=== PATIENT | male | born 1945 | race Caucasian/White ===

== ENCOUNTER 2018-12-23 17:13 | Emergency (ER) | payer MEDICARE, SELFPAY ==
[2018-12-23] VITALS (29 sets, daily range): BP systolic 134–180; BP diastolic 73–95; PULSE 74–100; RESP 13–22; TEMP 37.3; O2SAT 95–98
--- NOTE | 2018-12-23 17:31 | DI.CT_ITS ---
SYMPTOM/DIAGNOSIS: CONFUSION, ? CVA NONCONTRAST HEAD CT: There are no prior comparison exams. There is mucosal thickening of the nasal cavity, partially included on the exam. There is also mucosal thickening of the ethmoid sinuses. There is mucus retention within the right sphenoid sinus. The mastoid air cells appear clear. There is mild atrophy. No intracranial hemorrhage, mass or acute infarct is seen. 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 Sinus disease.
--- NOTE | 2018-12-23 17:31 | DI.RAD_ITS ---
SYMPTOM/DIAGNOSIS: CONFUSION, HYPERGLYCEMIA PA AND LATERAL CHEST: The heart size is normal. The aorta is mildly tortuous. The lungs are clear. Degenerative changes are seen in the spine. IMPRESSION: No acute abnormality.
--- NOTE | 2018-12-23 17:33 | ED.GENADUL_ITS ---
Discharge Plan Disposition Patient Disposition: HOME Condition: Improving Discharge Details Chief Complaint: Diabetes Clinical Impression: Hyperglycemia due to type 2 diabetes mellitus, Hx of medication noncompliance Reason For Visit: NELLIE Primary Care Provider: Mars Beavers ED Provider: Tiffany Lance Home Meds and New Rx's Prescriptions: Continued blood-glucose meter [OneTouch UltraMini] 1 EACH kit 1 ea Miscellaneous TID Qty: 1 RF: 0 lancets [OneTouch Delica Lancets] 1 EACH misc 1 ea Miscellaneous TID Qty: 300 RF: 3 OneTouch Ultra Test 1 EACH strip 1 ea Miscellaneous TID Qty: 300 RF: 4 pen needle, diabetic [Pen Needle] 1 EACH needle 1 ea Miscellaneous DAILY Qty: 100 RF: 3 pravastatin 80 mg tablet 80 mg PO DAILY Qty: 90 RF: 3 probenecid 500 mg tablet 500 mg PO BID Qty: 180 RF: 3 metformin 1,000 mg tablet 1,000 mg PO BID Qty: 180 RF: 3 hydrochlorothiazide 12.5 mg tablet 12.5 mg PO DAILY Qty: 90 RF: 3 lisinopril 40 mg tablet 40 mg PO DAILY Qty: 90 RF: 3 aspirin [Aspir-81] 81 MG tablet,delayed release (DR/EC) 81 mg PO DAILY RF: 0 Lantus Solostar U-100 Insulin 100 UNIT/1 ML insulin pen 18 unit SQ HS RF: 0 Discharge Instructions Instructions: Diabetic Hyperglycemia (ED) Additional Instructions: Drink plenty of fluids and eat a well-balanced diet, monitoring your carbohydrate and sugar intake. Check your sugars regularly. Take all of your regular medications as directed. Follow-up with your primary care doctor next week for re-evaluation. Return immediately to the emergency department any worsening or new concerning symptoms. Discharge Data Discharge Physician: Tiffany Lance Medical Decision Making 73-year-old male with history of diabetes, hypertension, gout who presents with hyperglycemia for the past few months, worse yesterday with numbers in the 500s, urinary incontinence and more fatigue today per daughter. Blood pressure hypertensive, remainder vitals within normal limits. Patient appears nontoxic, speaking in full sentences, comfortable. Glucose per EMS 328. Will place an IV, bolus IV fluids, labs, urinalysis, EKG, chest x-ray and CT head. 1844 --labs and imaging reviewed. CT head and chest x-ray negative for acute findings. Glucose 329. Normal bicarb and anion gap negative. Urinalysis negative for infection. Will give 7 units regular insulin and recheck blood sugar. Discussed with family at bedside. They feel comfortable taking patient home. Patient feels much better. Family discussed that they have seen some difficulty with memory over the past several months and are concerned about possible Alzheimer's dementia as there is a family history of it. They also discussed concern about patient's driving. I recommend that patient hold on any driving until he gets better control of his sugars over the next few weeks, and to follow-up with your primary care doctor and for referral for driving test to assess his ability. Daughter and family state that they will make sure that patient checks his sugars regularly and help him with his insulin and other medications. 1999 --repeat glucose 235. Patient feels much better and is requesting to go home. Patient states any of his medications, glucometer, lancets and strips at home. He is instructed to drink plenty of fluids, get plenty of rest, limit carbohydrates and sugar. He is instructed to follow-up with the primary care doctor for reevaluation and to return at any time if worse. Medical Records Medical records reviewed: Yes I reviewed the patient's medical records. Imaging Data Radiologic Study: Radiologist's impression: CT Head Without Contrast EXAM DATE/TIME: 12/23/2018 5:33 PM FINDINGS: Brain: No evidence for acute intracranial hemorrhage. Focal gliosis right occipital lobe, minimal. Cerebral volume loss noted. Scattered areas of decreased attenuation in the deep periventricular white matter consistent with small vessel ischemic change. Ventricles: Normal. No ventriculomegaly. Bones/joints: Unremarkable. No acute fracture. Sinuses: Moderate air fluid level right sphenoid sinus. Mastoid air cells: Visualized mastoid air cells are unremarkable. No mastoid effusion. Soft tissues: Unremarkable. IMPRESSION: 1. Senescent changes noted. No acute intracranial abnormality. 2. Right sphenoid sinusitis, acute in appearance. XR Chest, 2 Views EXAM DATE/TIME: 12/23/2018 5:33 PM FINDINGS: Lungs: Unremarkable. No consolidation. Pleural space: Unremarkable. No pleural effusion. No pneumothorax. Heart/Mediastinum: Unremarkable. No cardiomegaly. Bones/joints: Mild thoracic spondylosis. IMPRESSION: No evidence for acute abnormality in the chest. Lab Data Lab results reviewed: Yes I reviewed the patient's lab results. Laboratory Tests Range/Units 12/23/18 12/23/18 12/23/18 17:30 17:31 17:31 WBC (4.4-10.8) k/cumm 4.91 RBC (4.50-6.00) m/cumm 5.47 Hgb (13.5-17.5) g/dL 16.1 Hct (40.0-50.0) % 45.2 MCV (80-95) fL 82.6 MCH (27.0-33.0) pg 29.4 MCHC (32.0-36.0) g/dL 35.6 RDW (11.8-14.1) % 12.5 Plt Count (130-400) x1000/uL 198 MPV (8.0-11.0) fL 10.1 Immature Gran % 0.2 Neutrophils % 65.2 Lymphocytes % 23.8 Monocytes % 4.9 Eosinophils % 4.5 Basophils % 1.4 Absolute Neutrophils (1.2-6.7) k/cumm 3.20 Absolute Lymphocytes (1.2-3.4) k/cumm 1.17 L Absolute Monocytes (0.11-0.7) k/cumm 0.24 Absolute Eosinophils (0.0-0.7) k/cumm 0.22 Absolute Basophils (0.0-0.2) k/cumm 0.07 PT (9.3-11.0) sec 8.9 L INR (0.9-1.1) 0.9 APTT (21.0-31.4) sec 25.7 Sodium (136-145) mmol/L 139 Potassium (3.5-5.1) mmol/L 4.0 Chloride (98-107) mmol/L 98 Carbon Dioxide (21.0-32.0) mmol/L 30.4 Anion Gap (3-11) mmol/L 10.6 BUN (7-18) mg/dL 22 H Creatinine (0.70-1.30) mg/dL 1.64 H Estimated GFR/1.73 m2 (mL/min/1.73m2) 41.50 Glucose (70-100) mg/dL 329 H Calcium (8.5-10.1) mg/dL 9.6 Magnesium (1.8-2.4) mg/dL 1.8 Total Bilirubin (0.2-1.0) mg/dL 0.4 AST (15-37) U/L 15 ALT (12-78) U/L 18 Alkaline Phosphatase (46-116) U/L 127 H Troponin I (0.00-0.06) ng/mL < 0.02 Total Protein (6.4-8.2) g/dL 8.4 H Albumin (3.4-5.0) g/dL 4.2 Lipase (73-393) U/L 217 Urine Color (Yellow) Urine Clarity Urine pH (5-8) Ur Specific [place] (1.005-1.025) Urine Protein (Negative) mg/dL Urine Ketones (Negative) mg/dL Urine Blood (Negative) Urine Nitrite (Negative) Urine Bilirubin (Negative) Urine Urobilinogen (Up TO 0.2) EU/dL Ur Leukocyte Esterase (Negative) Urine RBC (0-2) Urine WBC (0-5) HPF Ur Epithelial Cells (Negative) HPF Urine Crystals (Negative) HPF Urine Bacteria (Negative) HPF Urine Casts (Negative) LPF Urine Mucus (Negative) Urine Other (Negative) Ur Culture Indicated? Urine Glucose (Negative) mg/dL Range/Units 12/23/18 18:16 WBC (4.4-10.8) k/cumm RBC (4.50-6.00) m/cumm Hgb (13.5-17.5) g/dL Hct (40.0-50.0) % MCV (80-95) fL MCH (27.0-33.0) pg MCHC (32.0-36.0) g/dL RDW (11.8-14.1) % Plt Count (130-400) x1000/uL MPV (8.0-11.0) fL Immature Gran % Neutrophils % Lymphocytes % Monocytes % Eosinophils % Basophils % Absolute Neutrophils (1.2-6.7) k/cumm Absolute Lymphocytes (1.2-3.4) k/cumm Absolute Monocytes (0.11-0.7) k/cumm Absolute Eosinophils (0.0-0.7) k/cumm Absolute Basophils (0.0-0.2) k/cumm PT (9.3-11.0) sec INR (0.9-1.1) APTT (21.0-31.4) sec Sodium (136-145) mmol/L Potassium (3.5-5.1) mmol/L Chloride (98-107) mmol/L Carbon Dioxide (21.0-32.0) mmol/L Anion Gap (3-11) mmol/L BUN (7-18) mg/dL Creatinine (0.70-1.30) mg/dL Estimated GFR/1.73 m2 (mL/min/1.73m2) Glucose (70-100) mg/dL Calcium (8.5-10.1) mg/dL Magnesium (1.8-2.4) mg/dL Total Bilirubin (0.2-1.0) mg/dL AST (15-37) U/L ALT (12-78) U/L Alkaline Phosphatase (46-116) U/L Troponin I (0.00-0.06) ng/mL Total Protein (6.4-8.2) g/dL Albumin (3.4-5.0) g/dL Lipase (73-393) U/L Urine Color (Yellow) Yellow Urine Clarity Clear Urine pH (5-8) 7.0 Ur Specific [place] (1.005-1.025) 1.020 Urine Protein (Negative) mg/dL 100 H Urine Ketones (Negative) mg/dL Negative Urine Blood (Negative) Moderate H Urine Nitrite (Negative) Negative Urine Bilirubin (Negative) Negative Urine Urobilinogen (Up TO 0.2) EU/dL 0.2 Ur Leukocyte Esterase (Negative) Negative Urine RBC (0-2) 5-10 H Urine WBC (0-5) HPF Negative Ur Epithelial Cells (Negative) HPF Rare Urine Crystals (Negative) HPF Negative Urine Bacteria (Negative) HPF Negative Urine Casts (Negative) LPF Negative Urine Mucus (Negative) Trace Urine Other (Negative) Ur Culture Indicated? No Urine Glucose (Negative) mg/dL 500 H ECG Data Attestation: I personally reviewed and interpreted this ECG (s) as follows: Interpretation: Rate of 90, sinus, no acute ST elevation or depression. QTc 440. QRS 96. HPI General Mode of arrival: EMS . Date/Time Provider Initiated Documentation: 12/23/18 17:21 . Limitations to Documentation: no limitations . Information obtained by: patient . HPI Narrative: Patient is a 73-year-old male with a history of diabetes and hypertension who presents with hyperglycemia and stating that his daughter thought he was not acting right today. Patient was unable to elaborate on this but states his daughter will be coming soon. Patient states he has had hyperglycemia for several months, and states that his sugar was 500 yesterday. States his sugar today was in the 300s. He states he has been taking most of his medications as directed but occasionally misses his doses including his metformin. He states he has not taken his insulin since August because he forgets. Patient states he lives with his daughter at home. He denies any fever, chest pain, shortness of breath, cough, nausea, vomiting, diarrhea. He states he has been eating and drink normally. He denies any urinary symptoms. Patient does admit to occasional headache and dizziness but not at present. Daughter and family who arrived later stated that patient seems to be more tired and grumpy lately. They also stated for the past few days he has had some urinary incontinence. She also stated that they are concerned about his driving due to progressive problems with memory over the past several months. They state he has a family history of Alzheimer's Dementia. Related Data Home Medications Medication Instructions Recorded Confirmed aspirin [Aspir-81] 81 mg PO DAILY 05/14/15 12/23/18 blood-glucose meter [OneTouch #1 kit 07/07/17 12/23/18 UltraMini] lancets [OneTouch Delica Lancets] #300 ea 07/10/17 12/23/18 OneTouch Ultra Test #300 strip 07/27/17 12/23/18 pen needle, diabetic [Pen Needle] #100 units 07/27/17 12/23/18 pravastatin 80 mg tablet 80 mg PO DAILY #90 tab 06/17/18 12/23/18 probenecid 500 mg tablet 500 mg PO BID #180 tab 11/23/18 12/23/18 metformin 1,000 mg tablet 1,000 mg PO BID #180 tab 12/13/18 12/23/18 hydrochlorothiazide 12.5 mg tablet 12.5 mg PO DAILY #90 tab 12/20/18 12/23/18 lisinopril 40 mg tablet 40 mg PO DAILY #90 tab 12/20/18 12/23/18 Lantus Solostar U-100 Insulin 18 unit SQ HS 12/23/18 12/23/18 Previous Rx's Medication Instructions Recorded blood-glucose meter [OneTouch #1 kit 07/07/17 UltraMini] lancets [OneTouch Delica Lancets] #300 ea 07/10/17 OneTouch Ultra Test #300 strip 07/27/17 pen needle, diabetic [Pen Needle] #100 units 07/27/17 pravastatin 80 mg tablet 80 mg PO DAILY #90 tab 06/17/18 probenecid 500 mg tablet 500 mg PO BID #180 tab 11/23/18 metformin 1,000 mg tablet 1,000 mg PO BID #180 tab 12/13/18 hydrochlorothiazide 12.5 mg tablet 12.5 mg PO DAILY #90 tab 12/20/18 lisinopril 40 mg tablet 40 mg PO DAILY #90 tab 12/20/18 Allergies Allergy/AdvReac Type Severity Reaction Status Date / Time codeine AdvReac Intermediate GI Verified 08/23/18 15:32 glimepiride AdvReac Unknown dizzy on Verified 08/23/18 15:32 1mg Review of Systems Review of Systems All systems reviewed & are unremarkable except as noted in HPI and below Constitutional Reports as per HPI, Denies chills and Denies fever(s) Eyes Denies blurry vision ENT Denies dizziness, Denies sore throat and Denies throat swelling Cardiovascular Denies chest pain and Denies dyspnea Respiratory Denies cough and Denies dyspnea Gastrointestinal Denies abdominal pain, Denies diarrhea and Denies vomiting Genitourinary Denies hematuria and Denies dysuria Musculoskeletal Denies back pain and Denies numbness Integumentary/Breasts Denies lesions and Denies rash Neurologic Denies dizziness, Denies focal weakness and Denies numbness Allergic/Immunologic Denies throat swelling [facility] Medical History Accelerated essential hypertension (Acute) Hyperlipemia (Acute) Diabetes (Chronic) Gout (Chronic) Surgical History Cataract right (08/13/17) Family History Mother Alzheimer disease Father No problems noted. Sister No problems noted. Sister No problems noted. Sister No problems noted. Brother Diabetes Stroke Brother No problems noted. Brother No problems noted. Social History Smoking/Tobacco Use Status: Current every day Tobacco Type: smokeless tobacco Alcohol Intake: former Drug use: Never Substance use type: does not use Do you feel safe at home: Yes Do you feel safe in your relationship?: Yes Exam Const General: cooperative and healthy appearing Orientation: alert and awake HENMT Head: normal to inspection Ears: hearing grossly normal bilaterally, external ears normal and TM's normal bilaterally General nose exam: external nose normal Face and sinus: normal facial exam Mouth: oral mucosae normal Teeth and gingiva: dentition normal Throat: posterior oropharynx normal Eyes General: appearance normal, both eyes and all related structures Eyelids: eyelids normal Pupils: PERRL EOM: EOM intact bilaterally Neck Neck: normal visual inspection Lymphatic: no lymphadenopathy noted Chest Chest: normal inspection of the chest Resp Effort & Inspection: normal respiratory effort and able to speak in complete sentences Auscultation: clear to auscultation bilaterally Cardio Rate: regular rate Rhythm: regular rhythm GI Inspection: normal to inspection Palpation: soft, not firm, no guarding, no hepatosplenomegaly, no masses and nontender Auscultation: normal bowel sounds Back/Spine/Pelvis Back: no CVA tenderness Skin General skin exam: no rashes or lesions noted Neuro General: alert and awake Cognition: normal cognition Speech: speech normal Gait: normal gait Motor: muscle tone normal throughout Sensory Exam: no sensory deficits noted Extrem General: normal to inspection, full ROM and normal capillary refill Psych Appearance: grossly normal Mental Status: mental status grossly normal Speech and Movement: speech and movement normal Affect: normal affect Thought Process: normal
[2018-12-23] MEDS: Normal Saline 1,000 ML 1000 ML IV (17:40)
[2018-12-23 17:41] LABS: Abs Immature Grans 0.01 k/cumm (0.0-0.09); Absolute Basophil Count 0.07 k/cumm (0.0-0.2); Absolute Eosinophil Count 0.22 k/cumm (0.0-0.7); Absolute Lymphocyte Count 1.17 k/cumm (1.2-3.4); Absolute Monocyte Count 0.24 k/cumm (0.11-0.7); Basophils % 1.4; Eosinophils % 4.5; HCT 45.2 % (40.0-50.0); HGB 16.1 g/dL (13.5-17.5); Immature Grans % 0.2; Lymphocytes % 23.8; Mean Corp. HGB Concentration 35.6 g/dL (32.0-36.0); Mean Corpuscular Hemoglobin 29.4 pg (27.0-33.0); Mean Corpuscular Volume 82.6 fL (80-95); Mean Platelet Volume 10.1 fL (8.0-11.0); Monocytes % 4.9; Neutrophils % 65.2; Platelet Count 198 x1000/uL (130-400); RBC 5.47 m/cumm (4.50-6.00); RBC Distribution Width 12.5 % (11.8-14.1); White Blood Cell Count 4.91 k/cumm (4.4-10.8)
[2018-12-23 18:04] LABS: ALT 18 U/L (12-78); AST 15 U/L (15-37); Albumin 4.2 g/dL (3.4-5.0); Alkaline Phosphatase 127 U/L (46-116); Anion Gap 10.6 mmol/L (3-11); BUN 22 mg/dL (7-18); Bilirubin, Total 0.4 mg/dL (0.2-1.0); CO2 30.4 mmol/L (21.0-32.0); CREATININE 1.64 mg/dL (0.70-1.30); Calcium 9.6 mg/dL (8.5-10.1); Chloride 98 mmol/L (98-107); Glucose 329 mg/dL (70-100); Lipase 217 U/L (73-393); Magnesium 1.8 mg/dL (1.8-2.4); Sodium 139 mmol/L (136-145); Total Protein 8.4 g/dL (6.4-8.2)
[2018-12-23 18:05] LABS: Troponin I < 0.02 ng/mL (0.00-0.06)
[2018-12-23 18:15] LABS: INR 0.9 (0.9-1.1); PTT Activated 25.7 sec (21.0-31.4); Prothrombin Time 8.9 sec (9.3-11.0)
[2018-12-23 18:24] LABS: Bilirubin Negative (Negative); Blood Moderate (Negative); Clarity Clear; Glucose 500 mg/dL (Negative); Ketones Negative (Negative); Leukocyte Esterase Negative (Negative); Nitrite Negative (Negative); Urobilinogen 0.2 EU/dL (Up TO 0.2)
--- NOTE | 2018-12-23 18:27 | DI.VRAD_ITS ---
EXAM: XR Chest, 2 Views EXAM DATE/TIME: 12/23/2018 5:33 PM CLINICAL HISTORY: 73 years old, male; Signs and symptoms; Shortness of breath TECHNIQUE: XR of the chest, 2 views. COMPARISON: No relevant prior studies available. FINDINGS: Lungs: Unremarkable. No consolidation. Pleural space: Unremarkable. No pleural effusion. No pneumothorax. Heart/Mediastinum: Unremarkable. No cardiomegaly. Bones/joints: Mild thoracic spondylosis. IMPRESSION: No evidence for acute abnormality in the chest. COMMENT: Preliminary interpretation is based on receipt of 2 image(s). A final report will be issued subsequently. Dictated and Authenticated by: Nelsy Kern MD. Ordering:ZORAIDA Allen MD
--- NOTE | 2018-12-23 18:27 | DI.VRAD_ITS ---
EXAM: CT Head Without Contrast EXAM DATE/TIME: 12/23/2018 5:33 PM CLINICAL HISTORY: 73 years old, male; Signs and symptoms; Other: Confusion TECHNIQUE: Axial computed tomography images of the head/brain without contrast. Coronal and sagittal reformatted images were created and reviewed. COMPARISON: No relevant prior studies available. FINDINGS: Brain: No evidence for acute intracranial hemorrhage. Focal gliosis right occipital lobe, minimal. Cerebral volume loss noted. Scattered areas of decreased attenuation in the deep periventricular white matter consistent with small vessel ischemic change. Ventricles: Normal. No ventriculomegaly. Bones/joints: Unremarkable. No acute fracture. Sinuses: Moderate air fluid level right sphenoid sinus. Mastoid air cells: Visualized mastoid air cells are unremarkable. No mastoid effusion. Soft tissues: Unremarkable. IMPRESSION: 1. Senescent changes noted. No acute intracranial abnormality. 2. Right sphenoid sinusitis, acute in appearance. COMMENT: Preliminary interpretation is based on receipt of 356 image(s). A final report will be issued subsequently. Dictated and Authenticated by: Nelsy Kern MD. Ordering:ZORAIDA Allen MD
[2018-12-23 18:37] LABS: Bacteria Negative HPF (Negative); C & S Indicated? No; Casts Negative LPF (Negative); Crystals Negative HPF (Negative); Epithelial Cells Rare HPF (Negative); Mucus Trace (Negative); WBC Negative HPF (0-5)
[2018-12-23] MEDS: Insulin REGULAR-Human 100 UNITS/ML UNIT 7 UNITS IV (18:56)
[2018-12-24 11:39] LABS: Hemoglobin A1C 10.4 % (4.5-6.2)
== END 2018-12-23 20:22 | disposition home or self-care (01) ==
PROVIDERS: Emergency Provider Physician Assistant; PCP Family Medicine
DX: E11.65 Type 2 diabetes mellitus with hyperglycemia (principal); I10 Essential (primary) hypertension; Z91.14 Patient's other noncompliance with medication regimen
CPT/HCPCS: 36415; 36416; 80053; 82962; 83690; 93005; 96361; 96374; 99285; 70450; 71046; 81003; 81015; 83036; 83735; 84484; 85025; 85610; 85730; 93010

== ENCOUNTER 2019-04-01 13:31 | Outpatient (REF) | payer MEDICARE, BC, SELFPAY ==
[2019-04-01 14:42] LABS: COMMENT (LAB VIEW ONLY) 61.44 mg/dL; Microalb ug/mg Crea 823.7 ug/mg Cr
== END 2019-04-01 13:51 ==
LOC: LBN 13:31
PROVIDERS: PCP Nurse Practitioner Adult Health; Visit Provider Nurse Practitioner Family
DX: E11.9 Type 2 diabetes mellitus without complications (principal)
CPT/HCPCS: 82043; 82570

== ENCOUNTER 2019-06-15 08:59 | Emergency (ER) | payer MEDICARE, SELFPAY ==
[2019-06-15] VITALS (14 sets, daily range): BP systolic 133–174; BP diastolic 77–94; PULSE 69–83; RESP 16; TEMP 37.1; O2SAT 95–98
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
--- NOTE | 2019-06-15 09:20 | ED.GENADUL_ITS ---
Discharge Plan Disposition Patient Disposition: HOME Condition: Fair Discharge Details Chief Complaint: EyeProblem Clinical Impression: Diplopia, Headache Primary Care Provider: Rasheeda Melchor ED Provider: Jayne Hobson Home Meds and New Rx's Prescriptions: Continued probenecid 500 mg tablet 500 mg PO BID Qty: 180 RF: 3 Lantus Solostar U-100 Insulin 100 unit/mL (3 mL) insulin pen 21 unit subcut HS Qty: 15 RF: 4 (DME) lancets [OneTouch Delica Lancets] 33 gauge misc 1 ea Miscellaneous TID Qty: 100 RF: 3 (DME) OneTouch Ultra Test strip 1 ea Miscellaneous TID Qty: 100 RF: 3 pravastatin 80 mg tablet 80 mg PO DAILY Qty: 90 RF: 3 metformin 1,000 mg tablet 1,000 mg PO BID Qty: 180 RF: 3 hydrochlorothiazide 12.5 mg tablet 12.5 mg PO DAILY Qty: 90 RF: 3 lisinopril 40 mg tablet 40 mg PO DAILY Qty: 90 RF: 3 (DME) lancets [OneTouch Delica Lancets] 33 gauge misc 1 ea Miscellaneous TID Qty: 100 RF: 3 (DME) pen needle, diabetic [Pen Needle] 31 gauge x 5/16 needle 1 ea Miscellaneous DAILY Qty: 100 RF: 3 (DME) FreeStyle [place] 14 Day [place] Misc See Dose Instructions .ROUTE .MEDSUPPLY Qty: 1 RF: 12 (DME) FreeStyle [place] 14 Day Sensor Kit See Dose Instructions .ROUTE .MEDSUPPLY Qty: 1 RF: 6 aspirin [Aspir-81] 81 MG tablet,delayed release (DR/EC) 81 mg PO DAILY RF: 0 Discharge Instructions Instructions: Diplopia (ED), General Headache (ED) Additional Instructions: Push fluids by mouth. Eat a balanced diet. Go directly to [facility] from the ER for further evaluation of your eyes as discussed Call your PCP for prompt recheck. Return for any worsening, alarming or concerning symptoms sooner if needed. Referrals: Rasheeda Melchor, [employer] [Primary Care Provider] - Medical Decision Making 73-year-old gentleman presents for complaints of headache which began 3 weeks ago at the onset of severe stress, financial stress which was new. Patient reports intermittent headaches, not worst headache of his life. Patient reports headaches to resolve entirely but he does note them when he becomes increasingly stressed. Posterior headache radiating to the forehead area. No associated systemic symptoms. Patient does present this morning as he noted abrupt onset of double vision which is binocular onset 6:50 AM. Patient reports when closing a single eye the blurred vision is resolved. Denies any other eye complaints. Neurologic exam at the bedside is unremarkable. This was discussed with my attending Dr. Jack. My attending also evaluated the patient at the bedside agrees with work-up and plan of care. Work-up including CT head and angiography of head and neck; all unremarkable. Patient does have a mildly elevated sed rate but no temporal artery tenderness. This is unlikely to be temporal arteritis, sed rate below 50. Patient does admit to not caring well for himself given the last 3 weeks of stress. Encouraged eating well, maintaining a balanced diet and staying well-hydrated. Initial plan of care is immediate reevaluation at [facility]. Follow-up promptly with PCP. Return for any alarming or worsening symptoms as discussed. HPI General Date/Time Provider Initiated Documentation: 06/15/19 09:02 . HPI Narrative: Patient presents for 3 weeks complaints of headache. Headache is described as posterior approximately 5 out of 10. Headache is intermittent. Headache will entirely resolve. Patient attributes headache to increase in stress financially recently. Patient reports onset of stress approximately 3 weeks ago concurrent with onset of headache. Patient denies associated nausea, vomiting, dizziness, numbness, tingling or weakness of extremities. Patient eating and drinking without difficulty although does have a mildly decrease in appetite due to recent stress. Patient is diabetic, compliant with medications. Patient presents this morning due to new onset of double vision which was noted 6:50 AM abruptly. Patient reports double vision is binocular. Does resolve entirely when closing one eye. Denies any associated eye pain, drainage or blurred vision. Denies any tinnitus. Denies any other concerns or complaints at this time. Patient does currently have a 5 out of 10 headache. Was sent over by his PCP. Patient urinating normally moving bowels normally. Related Data Home Medications Medication Instructions Recorded Confirmed aspirin [Aspir-81] 81 mg PO DAILY 05/14/15 06/15/19 pravastatin 80 mg tablet 80 mg PO DAILY #90 tab 06/17/18 06/15/19 metformin 1,000 mg tablet 1,000 mg PO BID #180 tab 12/13/18 06/15/19 hydrochlorothiazide 12.5 mg tablet 12.5 mg PO DAILY #90 tab 12/20/18 06/15/19 lisinopril 40 mg tablet 40 mg PO DAILY #90 tab 12/20/18 06/15/19 blood sugar diagnostic #100 strip 12/27/18 04/01/19 insulin glargine 100 unit/mL (3 21 unit SUBCUT HS #15 ml 12/27/18 06/15/19 mL) subcutaneous pen lancets 33 gauge #100 each 12/27/18 04/01/19 probenecid 500 mg tablet 500 mg PO BID #180 tab 12/27/18 06/15/19 lancets 33 gauge #100 each 01/03/19 04/01/19 pen needle, diabetic 31 gauge x #100 units 02/22/19 04/01/1902/24 flash glucose scanning reader #1 each 05/09/19 flash glucose sensor #1 each 05/09/19 Previous Rx's Medication Instructions Recorded pravastatin 80 mg tablet 80 mg PO DAILY #90 tab 06/17/18 metformin 1,000 mg tablet 1,000 mg PO BID #180 tab 12/13/18 hydrochlorothiazide 12.5 mg tablet 12.5 mg PO DAILY #90 tab 12/20/18 lisinopril 40 mg tablet 40 mg PO DAILY #90 tab 12/20/18 blood sugar diagnostic #100 strip 12/27/18 insulin glargine 100 unit/mL (3 21 unit SUBCUT HS #15 ml 12/27/18 mL) subcutaneous pen lancets 33 gauge #100 each 12/27/18 probenecid 500 mg tablet 500 mg PO BID #180 tab 12/27/18 lancets 33 gauge #100 each 01/03/19 pen needle, diabetic 31 gauge x #100 units 02/22/1902/24 flash glucose scanning reader #1 each 05/09/19 flash glucose sensor #1 each 05/09/19 Allergies Allergy/AdvReac Type Severity Reaction Status Date / Time codeine AdvReac Intermediate GI Verified 04/01/19 08:58 glimepiride AdvReac Intermediate dizzy on Verified 04/01/19 08:58 1mg General Stated Complaint: EyeProblem BRII: 2 Review of Systems Review of Systems CONSTITUTIONAL: The patient denies fevers, chills. EYES: Reports double vision. Denies blurry vision, or eye pain. ENT: Denies hearing changes, tinnitus, vertigo, gingival bleeding, sore throat, neck swelling. CARDIAC: Denies chest pain, pressure, palpitations, irregular heartbeats. Denies lower extremity edema. RESPIRATORY: Denies cough, sputum, hemoptysis_ GASTROINTESTINAL: Denies abdominal pain, changes in bowel, vomitting, or rectal bleeding. GENITOURINARY: Denies dysuria, hematuria, nocturia or frequency of urination. MUSCULOSKELETAL: Denies Joint pain, gait changes, deformities. NEUROLOGIC: Headaches present. Denies dizziness, syncope. Denies focal weakness. Denies numbness. INTEGUMENT: Denies rashes. PSYCHIATRIC: Denies behavior changes. Denies anxiety or depression. ENDOCRINOLOGY: Denies heat or cold intolerance. Denies fatigue. HEMATOLOGY: Denies easy bleeding or bruising. PSYCHIATRY: Denies depression, agitation or anxiety. ALLERGIC/IMMUNOLOGIC: Denies urticaria, lip or tongue swelling. [facility] Medical History Accelerated essential hypertension (Chronic) Diabetes (Chronic) Gout (Chronic) Hyperlipemia (Chronic) Surgical History Cataract right (08/13/17) Family History Mother , ALzheimers at age 72. Alzheimer disease Father , heart issue at age 83. No problems noted. Sister No problems noted. Sister No problems noted. Sister No problems noted. Brother Diabetes Stroke Brother No problems noted. Brother No problems noted. Social History Smoking/Tobacco Use Status: Current every day Tobacco Type: smokeless tobacco Alcohol Intake: current Alcohol Intake frequency: a few times a month Drug use: Never Substance use type: does not use Household members: none and other Details: Daughter, her and self, wid owed after 46 yrs of marriage, 08/29 Housing: house Communication Needs: Corrective Lenses Do you need help understanding health information?: Never Pets and animals: Yes Pets and animals: cat(s) What is your relationship status?: Panel score (0-1 are the most socially isolated patients): 0 What type of physical activity do you participate in: other Details: lawn mowing, weed waching, fishing Frequency: 3-4 times per week Do you feel safe at home: Yes Do you feel safe in your relationship?: Yes Exam Narrative Exam Narrative: CONST: Healthy appearing patient, in no acute distress. Well hydrated. Alert and alert. HENMT: Head nomocephalic, normal to inspection. Atraumatic. Hearing grossly normal. External ear canal no erythema or swelling. TM normal bilaterally. Nose normal to inspection. No rhinnorhea. Normal facial exam. Oral mucosa normal. Tounge normal. Dentition normal. Normal posterior oropharynx. Uvula midline. EYES: General normal appearance. Alignment normal. Eyelids normal. Conjunctiva normal. Sclera normal. PERRL. No nystagmus. NECK: Normal visual inspection. FROM. No lymphadenopathy. Trachea midline. No Midline tenderness. CHEST: Normal insepection of the chest. RESP: Normal respiratory effort. Speaking full sentences. No cough. No wheezing. No retractions. Clear to auscaltation. Breath sound equal and present bilaterally. CARDIO: No JVD. Normal PMI. Regular Rate. Regular Rhythm. Normal peripheral pulses. GI: Normal inspection of abdomen. No distension. Soft. Nontender. Bowel sounds present in all 4 quadrants. No rebound. No gaurding. MUSCULOSKELETAL: Normal Gait. FROM of all extremities. Distal neurovascularly intact. Sensation intact distally. SKIN: Normal. Dry. No rashes. NEURO: Alert and awake. Speech clear. Alert and oriented x 3. Speech is clear. Cranial nerves intact as tested III - XI. abnormal Cvblaf-ss-tzkp test. No pronator drift. Normal heel-yeboah test. No Nystagmus. Gait normal. Strength intact in all extremities. Sensation intact in all extremities. PSYCH: Normal affect. Cooperative. Eyes Visual Walters: normal visual walters by confrontation Alignment and Position: alignment normal Conjunctivae: conjunctivae normal Pupils: PERRL EOM: EOM intact bilaterally and No nystagmus Other: R; 20/20 L; 20/25 B: 20/32 Neuro Cranial Nerves: no nystagmus Course Vital Signs Temperature 37.1 C 06/15/19 09:03 Pulse 83 06/15/19 09:03 Respiratory Rate 16 06/15/19 09:03 Blood Pressure 174/94 H 06/15/19 09:03 Pulse Oximetry 97 06/15/19 09:03 Temperature 37.1 C 06/15/19 09:03 Temperature Source Skin 06/15/19 09:03 Pulse 83 06/15/19 09:03 Respiratory Rate 16 06/15/19 09:03 Blood Pressure 174/94 H 06/15/19 09:03 Pulse Oximetry 97 06/15/19 09:03 Oxygen Delivery Method Room Air 06/15/19 09:03 Oxygen Flow Rate 0 06/15/19 09:03
[2019-06-15 09:35] LABS: Abs Immature Grans 0.02 k/cumm (0.0-0.09); Absolute Basophil Count 0.04 k/cumm (0.0-0.2); Absolute Eosinophil Count 0.13 k/cumm (0.0-0.7); Absolute Lymphocyte Count 0.75 k/cumm (1.2-3.4); Absolute Monocyte Count 0.36 k/cumm (0.11-0.7); Absolute Neutrophil Count 5.69 k/cumm (1.2-6.7); Basophils % 0.6; Eosinophils % 1.9; HCT 44.6 % (40.0-50.0); HGB 15.3 g/dL (13.5-17.5); Immature Grans % 0.3; Lymphocytes % 10.7; Mean Corp. HGB Concentration 34.3 g/dL (32.0-36.0); Mean Corpuscular Volume 84.5 fL (80-95); Mean Platelet Volume 10.1 fL (8.0-11.0); Monocytes % 5.2; Neutrophils % 81.3; Platelet Count 268 x1000/uL (130-400); RBC 5.28 m/cumm (4.50-6.00); RBC Distribution Width 12.8 % (11.8-14.1); White Blood Cell Count 6.99 k/cumm (4.4-10.8)
[2019-06-15 09:50] LABS: ALT 27 U/L (16-63); AST 14 U/L (15-37); Albumin 3.6 g/dL (3.4-5.0); Alkaline Phosphatase 138 U/L (46-116); Anion Gap 10.1 mmol/L (3-11); BUN 13 mg/dL (7-18); Bilirubin, Total 0.5 mg/dL (0.2-1.0); CO2 29.9 mmol/L (21.0-32.0); CREATININE 1.54 mg/dL (0.70-1.30); Calcium 9.3 mg/dL (8.5-10.1); Chloride 101 mmol/L (98-107); Estimated GFR 44.63 (mL/min/1.73m2); Glucose 202 mg/dL (70-100); Sodium 141 mmol/L (136-145); Total Protein 8.2 g/dL (6.4-8.2)
[2019-06-15 10:10] LABS: PTT Activated 24.1 sec (21.0-31.4); Prothrombin Time 9.8 sec (9.3-11.0)
[2019-06-15 10:11] LABS: ESR 32 mm/hr (1-20)
[2019-06-15] MEDS: Omnipaque 350 MG/ML 100 ML BTL IJ (10:22)
--- NOTE | 2019-06-15 10:25 | DI.CT_ITS ---
SYMPTOMS/DIAGNOSIS: DOUBLE VISION, HEADACHE NONCONTRAST HEAD CT: Comparison is made with [id number]. No intracranial hemorrhage, mass or infarct is seen. The ventricles are normal in size. There is minimal atrophy. There is opacification of the right sphenoid sinus. The mastoid air cells appear clear. IMPRESSION: No acute abnormality. CT ANGIOGRAPHY OF THE NECK: CT angiography was performed with multi slice acquisition and multi planar and 3D reconstruction. The common, internal and external carotid arteries show normal diameter throughout. There is no significant plaque or stenosis. There is no evidence of dissection. The right vertebral artery is dominant. The visualized portions of the upper lobes appear clear. There are degenerative changes greatest in the lower cervical spine. IMPRESSION: Negative CTA of the neck. CT ANGIOGRAPHY OF THE BRAIN: The [place] vasculature and branches are normal in diameter. There is no evidence of stenosis, dissection or occlusion. The superior sagittal sinus as well as sigmoid sinus also show opacification and show no evidence of filling defect. A mucous retention cyst is seen in the left maxillary sinus. No abnormal enhancing lesions are seen in the brain. The orbits are unremarkable. There is opacification of the right sphenoid sinus. IMPRESSION: Negative CTA of the brain.
[2019-06-15] MEDS: Acetaminophen 500 MG TAB 1000 MG PO (10:37)
[2019-06-15] MEDS: Normal Saline 1,000 ML 1000 ML IV (10:37)
--- NOTE | 2019-06-15 11:32 | NUR.NOTE ---
Nursing Note:IV removed
--- NOTE | 2019-06-15 13:52 | W.ED.FU ---
I evaluated the pt during his stay. See the primary provider's notes for full details but in brief has had mild intermittent headaches for a few weeks and today had binocular bipolopia. Had no cranial nerve deficits on exam and stable gait. He had no infectious symptoms, no meningismus. His head ct and CTA showed no acute findings per Dr. hawkins. We sent him to see his software quality specialist since aneurysm and dissection were ruled out and symptoms were not typical of cavernous sinus thrombosis.
== END 2019-06-15 11:32 | disposition home or self-care (01) ==
PROVIDERS: Emergency Provider Physician Assistant; PCP Nurse Practitioner Adult Health
DX: H53.2 Diplopia (principal); R51 Headache
CPT/HCPCS: 36415; 70496; 70498; 80053; 85652; 96360; 99285; 85025; 85610; 85730; 99284; J3490

== ENCOUNTER 2019-06-20 15:53 | Outpatient (REF) | payer MEDICARE, SELFPAY ==
[2019-06-20 19:08] LABS: ESR 24 mm/hr (1-20)
[2019-06-22 11:06] LABS: Lyme Ab w Rflx to Lyme Confirm Positive
[2019-06-24 02:02] LABS: Anaplasma phagocytophilum Negative (Negative); B. miyamotoi PCR Negative (Negative); Babesia divergens/MO-1 Negative (Negative); Babesia duncani Negative (Negative); Babesia microti Negative (Negative); Ehrlichia chaffeensis Negative (Negative); Ehrlichia ewingii/canis Negative (Negative); Ehrlichia muris eauclairensis Negative (Negative)
[2019-06-24 15:33] LABS: IgG Immunoblot Negative; IgM Immunoblot Positive; Immunoblot Interpretation SEE COMMENTS
== END 2019-06-20 16:13 ==
LOC: LBN 15:53
PROVIDERS: PCP Nurse Practitioner Adult Health; Visit Provider Family Medicine
DX: G52.9 Cranial nerve disorder, unspecified (principal)
CPT/HCPCS: 85652; 86617; 87798; 86618

== ENCOUNTER 2019-06-21 09:02 | Outpatient (CLI) | payer MEDICARE, SELFPAY ==
[2019-06-21] MEDS: Gadoterate meglumine 20 ML VIAL 16 ML IVP (12:59)
[2019-06-21] MEDS: Normal Saline Flush 10 ML SYR IVP (13:00)
--- NOTE | 2019-06-21 13:11 | DI.MRI_ITS ---
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 There is moderate generalized cerebral atrophy. There are mild signal changes in periventricular white matter consistent with microvascular ischemic changes. Possible tiny old right occipital infarct noted. Diffusion weighted imaging shows no evidence of acute infarction or subacute infarction. Susceptibility weighted imaging shows no evidence of intracranial hemorrhage. There is an incidental apparent tiny lipoma associated with the quadrigeminal cistern just adjacent to the sylvian aqueduct without evidence of aqueductal stenosis. No mass lesion or enhancing lesion identified in the brain or specifically in the posterior fossa. The orbital and temporal bone structures appear intact. There is normal flow void in the [place] vasculature. CONCLUSION: No evidence of acute process. No evidence of posterior fossa mass lesion or enhancing lesion.
== END 2019-06-21 09:22 ==
PROVIDERS: PCP Nurse Practitioner Adult Health; Visit Provider Family Medicine
DX: G52.8 Disorders of other specified cranial nerves (principal); G31.89 Other specified degenerative diseases of nervous system; R90.82 White matter disease, unspecified
CPT/HCPCS: 70553

== ENCOUNTER 2019-12-19 08:44 | Outpatient (CLI) | payer MEDICARE, SELFPAY ==
[2019-12-19 09:34] LABS: Hemoglobin A1C 8.2 % (3.8-5.6)
[2019-12-19 09:57] LABS: COMMENT (LAB VIEW ONLY) 59.34 mg/dL
[2019-12-19 10:39] LABS: ALT 18 U/L (16-63); AST 16 U/L (15-37); Albumin 3.7 g/dL (3.4-5.0); Alkaline Phosphatase 89 U/L (46-116); Anion Gap 9.4 mmol/L (3-11); BUN 23 mg/dL (7-18); Bilirubin, Total 0.5 mg/dL (0.2-1.0); CO2 29.6 mmol/L (21.0-32.0); CREATININE 1.36 mg/dL (0.70-1.30); Calcium 8.9 mg/dL (8.5-10.1); Calculated LDL 103 mg/dL (<100); Chloride 103 mmol/L (98-107); Cholesterol 173 mg/dL (<200); Estimated GFR 51.37 (mL/min/1.73m2); Glucose 192 mg/dL (74-106); HDL Cholesterol 41 mg/dL (40-60); Sodium 142 mmol/L (136-145); Total Protein 6.7 g/dL (6.4-8.2); Triglyceride 145 mg/dL (<150)
[2019-12-19 10:48] LABS: Uric Acid 4.2 mg/dL (3.5-7.2)
== END 2019-12-19 09:04 ==
PROVIDERS: PCP Nurse Practitioner Adult Health; Visit Provider Nurse Practitioner Adult Health
DX: E11.65 Type 2 diabetes mellitus with hyperglycemia (principal); E78.5 Hyperlipidemia, unspecified; I10 Essential (primary) hypertension; M10.9 Gout, unspecified
CPT/HCPCS: 36415; 80053; 80061; 82043; 82570; 83036; 84550

== ENCOUNTER 2020-03-21 01:23 | Outpatient (CLI) | payer MEDICARE, SELFPAY ==
[2020-03-21 09:14] LABS: Hemoglobin A1C 7.5 % (3.8-5.6)
[2020-03-21 09:36] LABS: ALT 27 U/L (16-63); AST 19 U/L (15-37); Albumin 4.2 g/dL (3.4-5.0); Alkaline Phosphatase 100 U/L (46-116); Anion Gap 10.2 mmol/L (3-11); BUN 28 mg/dL (7-18); Bilirubin, Total 0.3 mg/dL (0.2-1.0); CO2 27.8 mmol/L (21.0-32.0); CREATININE 1.66 mg/dL (0.70-1.30); Calcium 9.1 mg/dL (8.5-10.1); Calculated LDL 110 mg/dL (<100); Chloride 107 mmol/L (98-107); Cholesterol 184 mg/dL (<200); Estimated GFR 40.81 (mL/min/1.73m2); Glucose 192 mg/dL (74-106); HDL Cholesterol 47 mg/dL (40-60); Potassium 4.4 mmol/L (3.5-5.1); Sodium 145 mmol/L (136-145); Total Protein 7.5 g/dL (6.4-8.2); Triglyceride 139 mg/dL (<150)
[2020-03-21 09:45] LABS: Microalb ug/mg Crea 1904.3 ug/mg Cr
== END 2020-03-21 01:43 ==
PROVIDERS: PCP Nurse Practitioner Adult Health; Visit Provider Nurse Practitioner Adult Health
DX: E11.65 Type 2 diabetes mellitus with hyperglycemia (principal); I10 Essential (primary) hypertension; E78.5 Hyperlipidemia, unspecified; N18.3 Chronic kidney disease, stage 3 (moderate)
CPT/HCPCS: 36415; 80053; 80061; 82043; 82570; 83036

== ENCOUNTER → 2020-08-16 10:21 | Outpatient (BNVA) | payer MEDICARE, SELFPAY | PROVIDERS: PCP Nurse Practitioner Adult Health; Referring Provider Nurse Practitioner Adult Health; Visit Provider Physical Therapy Assistant | DX: Z12.11 Encounter for screening for malignant neoplasm of colon (principal); Z86.010 Personal history of colon polyps; I12.9 Hypertensive chronic kidney disease with stage 1 through stage 4 chronic kidney disease, or unspecified chronic kidney disease; N18.30 Chronic kidney disease, stage 3 unspecified ==

== ENCOUNTER 2020-08-24 03:28 | Outpatient (CLI) | payer MEDICARE, SELFPAY ==
--- NOTE | 2020-08-24 07:15 | DI.RAD_ITS ---
EXAM: XR LUMBAR SPINE COMPLETE CLINICAL HISTORY: r/o bony abn--compress fx, DJD,BACK PAIN,RADICULOPATHY,M54.16,R26.89. TECHNIQUE: 2D digital imaging was performed. COMPARISON: CR XR CHEST 2V PA LATERAL from 12/23/2018 FINDINGS: BONES: No fracture or destructive lesion. Vertebral bodies are unremarkable. Mild degenerative change s of the facets are seen at L4-5 and L5-S1. Endplate osteophytes are seen at multiple levels of the l umbar spine. DISKS: Intervertebral disc spaces are maintained. ALIGNMENT: Lumbar spinal alignment is within normal limits. SOFT TISSUE: Normal. IMPRESSION: No acute fracture or subluxation in the lumbar spine. DATA REPOSITORY: RADIATION DOSE DELIVERED:
--- NOTE | 2020-08-24 07:15 | DI.RAD_ITS ---
EXAM: XR HIP RT COMPLETE AP PELVIS CLINICAL HISTORY: r/o bony abn-compr fx; DJD, RT HIP PAIN, IMPAIRED GAIT,M25.551,R26.89. TECHNIQUE: 2D digital imaging was performed. COMPARISON: No exams were available for comparison FINDINGS: BONES: No acute fracture is present. No bony destructive lesion is seen. JOINTS: No dislocation present. Mild degenerative changes are seen in the hips bilaterally. SOFT TISSUE: Normal. IMPRESSION: No acute fracture or dislocation. DATA REPOSITORY: RADIATION DOSE DELIVERED:
== END 2020-08-24 03:48 ==
PROVIDERS: PCP Nurse Practitioner Adult Health; Visit Provider Nurse Practitioner Adult Health
DX: M54.16 Radiculopathy, lumbar region (principal); M16.0 Bilateral primary osteoarthritis of hip; R26.89 Other abnormalities of gait and mobility
CPT/HCPCS: 72110; 73502

== ENCOUNTER 2020-08-24 13:16 | Emergency (ER) | payer MEDICARE, SELFPAY ==
[2020-08-24] VITALS (26 sets, daily range): BP systolic 140–182; BP diastolic 77–109; PULSE 70–82; RESP 16; TEMP 37.1; O2SAT 94–99
--- NOTE | 2020-08-24 13:45 | DI.CT_ITS ---
EXAM: CT PELVIC WO CLINICAL HISTORY: Right hip pain, non ambulatory. TECHNIQUE: Imaging Protocol: Axial computed tomography images with coronal and sagittal reformatted images were created and reviewed. COMPARISON: CT CT BRAIN NECK CTA from 06/15/2019 FINDINGS: Bones: The osseous structures and articular surfaces are intact. There is no evidence of fracture or dislocation. Bony alignment is satisfactory. There is a mottled appearance of the left iliac bone a djacent to the sacroiliac joint mild thickening of the cortex is noted. There may also be asymmetric enlargement of the bone. Differential considerations include Paget's, multiple myeloma or metastati c disease. The sacroiliac joint is well maintained. Mild degenerative changes is seen at the hips. There are degenerative changes seen in the lumbar spine. Soft Tissues: Normal. IMPRESSION: 1. No acute fracture or dislocation. 2. Abnormal appearance of the left Z87 iliac bone as described above. Differential considerations in clude Paget's, multiple myeloma or metastatic disease. Nonemergent MRI or bone scan should be consid ered for further evaluation. 3. Findings were discussed with the emergency department on the date of the examination. RADIATION DOSE DELIVERED: 358.91mGy.cm Total DLP 358.91mGy.cmTotal DLP DATA REPOSITORY: All CT scans at this facility are submitted to the National Radiology Data Registry (NRDR) Dose Index Registry (DIR) with the [employer] (ACR). RADIATION OPTIMIZATION: All CT scans at this facility use at least one of these dose optimization te chniques: automated exposure control; mA and/or kV adjustment per patient size (includes targeted exa ms where dose is matched to clinical indication); or iterative reconstruction.
--- NOTE | 2020-08-24 13:46 | ED.GENADUL_ITS ---
Discharge Plan Disposition Patient Disposition: HOME Condition: Stable Discharge Details Clinical Impression: Lumbar back pain with radiculopathy affecting right lower extremity Primary Care Provider: Rasheeda Melchor ED Provider: Joshua Dickinson Home Meds and New Rx's Prescriptions: New oxycodone-acetaminophen [Percocet] 5-325 mg tablet 1 tab PO Q6H PRNQty: 8 RF: 0 Continued atorvastatin 20 mg tablet 20 mg PO QHS Qty: 90 RF: 3 atorvastatin 40 mg tablet 40 mg PO QHS Qty: 90 RF: 3 ibuprofen 600 mg tablet 300 - 600 mg PO DAILY PRN (Reason: pain) Qty: 20 RF: 0 polyethylene glycol 3350 17 gram/dose powder 238 g PO ONCE Qty: 238 RF: 0 methocarbamol 500 mg tablet 500 - 1,000 mg PO TID PRN (Reason: muscle relaxer) Qty: 40 RF: 0 prednisone 10 mg tablet See Rx Instructions PO .daily in AM Qty: 1 RF: 0 Lantus Solostar U-100 Insulin 100 unit/mL (3 mL) insulin pen 23 unit subcut HS Qty: 15 RF: 4 Jardiance 10 mg tablet 10 mg PO QAM Qty: 90 RF: 3 (DME) lancets [OneTouch Delica Lancets] 33 gauge misc 1 ea Miscellaneous TID Qty: 100 RF: 3 (DME) FreeStyle [place] 14 Day Shock Misc See Dose Instructions .ROUTE .MEDSUPPLY Qty: 1 RF: 12 (DME) pen needle, diabetic [Pen Needle] 31 gauge x 5/16 needle 1 ea Miscellaneous DAILY Qty: 100 RF: 3 (DME) FreeStyle [place] 14 Day Sensor Kit See Dose Instructions .ROUTE .MEDSUPPLY Qty: 11 RF: 6 metformin 1,000 mg tablet 1,000 mg PO BID Qty: 180 RF: 3 lisinopril 40 mg tablet 40 mg PO DAILY Qty: 90 RF: 3 probenecid 500 mg tablet 500 mg PO BID Qty: 180 RF: 3 hydrochlorothiazide 25 mg tablet 25 mg PO QAM Qty: 90 RF: 3 aspirin [Aspir-81] 81 MG tablet,delayed release (DR/EC) 81 mg PO DAILY RF: 0 bisacodyl [Gentle Laxative (bisacodyl)] 5 mg tablet,delayed release (DR/EC) 5 mg PO DIRECTED RF: 0 acetaminophen 500 mg Capsule 1,000 mg PO PRN PRNRF: 0 Discharge Instructions Instructions: Lumbar Radiculopathy (ED), Back Pain (ED) Additional Instructions: Percocet as directed, may cause drowsiness and/or constipation. Plenty of fluids and you may want to take [id number] stool softeners. Cool and/or warm compresses every 2 hours for 20 minutes. Gentle stretching as tolerated. Use walker as needed, advance activity as tolerated. Please watch for new or worsening symptoms and return to the ER for any concerns. I do recommend contacting both your primary care provider and Dr. Escobar, orthopedics, on ay for prompt outpatient reevaluation. Based upon your symptoms and CT findings, physical therapy may be required. Outpatient MRI is recommended Referrals: Asad Escobar MD [ [facility] STAFF PHYSICIAN] - Discharge Data Discharge Date/Time-TO BE ENTERED AT DEPARTURE: 08/24/20 18:05 Medical Decision Making <Tracy Pino - Last Filed: 08/25/20 08:07> 75-year-old male presents to the ED with right hip pain which radiates down his right leg. he was sent here due to being on able to ambulate and increased pain. Patient has been having right hip pain since April. He had x-rays this morning of hip and lumbar spine prior to arrival. he denies any falls or trauma no injuries. He has a past medical history of type 2 diabetes, Lyme disease, chronic kidney disease stage III, hypertension, hyperlipidemia he has been taking methocarbamol, prednisone, Tylenol with little to no relief. a RAD:XR hip RT complete & AP pelvis EXAM: XR HIP RT COMPLETE AP PELVIS CLINICAL HISTORY: r/o bony abn-compr fx; DJD, RT HIP PAIN, IMPAIRED GAIT,M25.551,R26.89. TECHNIQUE: 2D digital imaging was performed. COMPARISON: No exams were available for comparison FINDINGS: BONES: No acute fracture is present. No bony destructive lesion is seen. JOINTS: No dislocation present. Mild degenerative changes are seen in the hips bilaterally. SOFT TISSUE: Normal. IMPRESSION: No acute fracture or dislocation. EXAM: XR LUMBAR SPINE COMPLETE CLINICAL HISTORY: r/o bony abn--compress fx, DJD,BACK PAIN,RADICULOPATHY,M54.16,R26.89. TECHNIQUE: 2D digital imaging was performed. COMPARISON: CR XR CHEST 2V PA LATERAL from 12/23/2018 FINDINGS: BONES: No fracture or destructive lesion. Vertebral bodies are unremarkable. Mild degenerative changes of the facets are seen at L4-5 and L5-S1. Endplate osteophytes are seen at multiple levels of the lumbar spine. DISKS: Intervertebral disc spaces are maintained. ALIGNMENT: Lumbar spinal alignment is within normal limits. SOFT TISSUE: Normal. IMPRESSION: No acute fracture or subluxation in the lumbar spine. EXAM: CT PELVIC WO CLINICAL HISTORY: Right hip pain, non ambulatory. TECHNIQUE: Imaging Protocol: Axial computed tomography images with coronal and sagittal reformatted images were created and reviewed. COMPARISON: CT CT BRAIN NECK CTA from 06/15/2019 FINDINGS: Bones: The osseous structures and articular surfaces are intact. There is no evidence of fracture or dislocation. Bony alignment is satisfactory. There is a mottled appearance of the left iliac bone adjacent to the sacroiliac joint mild thickening of the cortex is noted. There may also be asymmetric enlargement of the bone. Differential considerations include Paget's, multiple myeloma or metastatic disease. The sacroiliac joint is well maintained. Mild degenerative changes is seen at the hips. There are degenerative changes seen in the lumbar spine. Soft Tissues: Normal. IMPRESSION: 1. No acute fracture or dislocation. 2. Abnormal appearance of the left Z87 iliac bone as described above. Differential considerations include Paget's, multiple myeloma or metastatic disease. Nonemergent MRI or bone scan should be considered for further evaluation. 3. Findings were discussed with the emergency department on the date of the examination. Discussed CT findings with patient who verbalized understanding. Patient has received approximately 6 mg of morphine total during his 2-hour ER visit. We will attempt to road test with a walker to test ambulation. Patient states that he needs to walk approximately 15 feet to the bathroom at his home. 1500: Road test failed per nurse staff industrial patient was unable to stand up with a walker due to pain. Labs added on for CBC and CMP. Care to be handed off to oncoming provider JULIANA Roldan pending labs and possible admission for pain control and unable to tolerate ambulation. <JULIANA Wray - Last Filed: 08/24/20 17:43> I assumed care at this 75-year-old gentleman at shift change from DOORPERSON OR LUGGAGE PORTER Alvarez, see her initial HPI and examination. At time of signout, awaiting laboratory values that have just recently been added on after patient failed ambulation with walker. Awaiting care management consultation and likely admission. Laboratory values reveal a white blood cell count of 9.89 hemoglobin 14.8 hematocrit 42.9 platelet count 209. Creatinine 2.10 with estimated GFR of 31.03. This does appear to be slightly worse than his baseline, patient given 1 L IV fluid. Glucose 198. Urine shows trace blood, 500 glucose. Care management was paged but I have not received a phone call back approximately 45 minutes after the initial page. I discussed options with patient. He would prefer to be admitted. He has a sister and son who can help at home but he has no additional resources. He feels as though he cannot ambulate safely. I discussed the case with Dr. Griffin who was agreeable to admit the patient, I will write bridging orders. I went back into evaluate the patient and he reports feeling substantially better, would like to trial ambulate with a walker and go home if possible. Patient was able to ambulate slowly but steadily throughout the ER using a walker. He appears well, nontoxic. No acute distress. He is requesting discharge. I did call back Dr. Griffin to make him aware that the patient is now requesting discharge. I was able to speak with care management who is able to get the patient a walker to go home with. I will give the patient a take-home pack of Percocet and prescribe him an additional 8 tablets. We discussed the importance of using the walker, contacting his primary care provider and orthopedics on Thursday for prompt outpatient reevaluation, potential PT and need for outpatient MRI given his symptoms and CT findings. I did discuss this with his sister as well who is coming to pick him up in his current condition. Patient has no additional questions or concerns and again has declined admission and requesting discharge home. Medical Records Medical records reviewed: Yes I reviewed the patient's medical records. Lab Data Lab results reviewed: Yes I reviewed the patient's lab results. Labs: Laboratory Tests Range/Units 08/24/20 08/24/20 08/24/20 15:15 16:02 16:02 WBC (4.4-10.8) 10^3/uL 9.89 RBC (4.36-5.78) 10^6/uL 4.93 Hgb (13.5-17.5) g/dL 14.8 Hct (40.0-50.0) % 42.9 MCV (80-95) fL 87.0 MCH (27.0-33.0) pg 30.0 MCHC (32.0-36.0) % 34.5 RDW (11.8-14.1) % 12.5 Plt Count (130-400) 10^3/uL 209 MPV (8.0-11.0) fL 10.5 Immature Gran % 0.3 Neutrophils % 91.8 Lymphocytes % 6.7 Monocytes % 1.0 Eosinophils % 0.0 Basophils % 0.2 Nucleated RBC % % 0 Absolute Neutrophils (1.2-6.7) 10^3/uL 9.08 H Absolute Lymphocytes (1.2-3.4) 10^3/uL 0.66 L Absolute Monocytes (0.1-0.8) 10^3/uL 0.10 Absolute Eosinophils (0.0-0.7) 10^3/uL 0.00 Absolute Basophils (0.0-0.2) 10^3/uL 0.02 Sodium (136-145) mmol/L 143 Potassium (3.5-5.1) mmol/L 4.1 Chloride (98-107) mmol/L 104 Carbon Dioxide (21.0-32.0) mmol/L 26.2 Anion Gap (3-11) mmol/L 12.8 H BUN (7-18) mg/dL 43 H Creatinine (0.70-1.30) mg/dL 2.10 H Estimated GFR/1.73 m2 (mL/min/1.73m2) 31.03 Glucose (74-106) mg/dL 198 H Calcium (8.5-10.1) mg/dL 9.1 Total Bilirubin (0.2-1.0) mg/dL 0.6 AST (15-37) U/L 14 L ALT (16-63) U/L 20 Alkaline Phosphatase (46-116) U/L 94 Total Protein (6.4-8.2) g/dL 7.0 Albumin (3.4-5.0) g/dL 3.7 Urine Color (Yellow) Yellow Urine Clarity (Clear) Clear Urine pH (5-8) 5.5 Ur Specific [place] (1.005-1.025) 1.025 Urine Protein (Negative) mg/dL 100 H Urine Ketones (Negative) mg/dL Negative Urine Blood (Negative) Trace-intact H Urine Nitrite (Negative) Negative Urine Bilirubin (Negative) Negative Urine Urobilinogen (Up TO 0.2) EU/dL 0.2 Ur Leukocyte Esterase (Negative) Negative Urine RBC (0-2) HPF 0-2 Urine WBC (0-5) HPF 0-2 Ur Epithelial Cells (Negative) HPF Few Urine Crystals (Negative) HPF Negative Urine Bacteria (Negative) HPF Negative Urine Casts (Negative) LPF Negative Urine Mucus (Negative) Negative Ur Culture Indicated? No Urine Glucose (Negative) mg/dL 500 H HPI <Tracy Pino - Last Filed: 08/25/20 08:07> General Mode of arrival: EMS . Date/Time Provider Initiated Documentation: 08/24/20 13:27 . Limitations to Documentation: no limitations . Information obtained by: patient . HPI Narrative: 75-year-old male presents to the ED with right hip pain which radiates down his right leg. he was sent here due to being on able to ambulate and increased pain. Patient has been having right hip pain since April. He had x-rays this morning of hip and lumbar spine prior to arrival. he denies any falls or trauma no injuries. He has a past medical history of type 2 diabetes, Lyme disease, chronic kidney disease stage III, hypertension, hyperlipidemia he has been taking methocarbamol, prednisone, Tylenol with little to no relief. Related Data Home Medications Medication Instructions Recorded Confirmed aspirin [Aspir-81] 81 mg PO DAILY 05/14/15 08/24/20 lancets 33 gauge #100 each 01/03/19 08/22/20 flash glucose scanning reader #1 each 05/09/19 08/22/20 insulin glargine 100 unit/mL (3 23 unit SUBCUT HS #15 ml 06/16/19 08/24/20 mL) subcutaneous pen pen needle, diabetic 31 gauge x #100 units 06/20/19 08/22/2002/24 flash glucose sensor #11 each 09/30/19 08/22/20 lisinopril 40 mg tablet 40 mg PO DAILY #90 tab 11/22/19 08/24/20 metformin 1,000 mg tablet 1,000 mg PO BID #180 tab 11/22/19 08/24/20 empagliflozin 10 mg tablet 10 mg PO QAM #90 tab 12/22/19 08/24/20 probenecid 500 mg tablet 500 mg PO BID #180 tab 02/06/20 08/24/20 atorvastatin 20 mg tablet 20 mg PO QHS #90 tab 04/09/20 08/24/20 atorvastatin 40 mg tablet 40 mg PO QHS #90 tab 04/09/20 08/24/20 ibuprofen 600 mg tablet 300 - 600 mg PO DAILY PRN #20 tab 04/09/20 08/24/20 hydrochlorothiazide 25 mg tablet 25 mg PO QAM #90 tab 07/10/20 08/24/20 polyethylene glycol 3350 17 238 g PO ONCE #238 g 08/16/20 08/24/20 gram/dose oral powder methocarbamol 500 mg tablet 500 - 1,000 mg PO TID PRN #40 tab 08/22/20 08/24/20 prednisone 10 mg tablet See Rx Instructions PO .daily in 08/22/20 08/24/20 AM #1 tab acetaminophen 1,000 mg PO PRN PRN 08/24/20 08/24/20 bisacodyl [Gentle Laxative 5 mg PO DIRECTED 08/24/20 08/24/20 (bisacodyl)] oxycodone-acetaminophen [Percocet] 1 tab PO Q6H PRN #8 tab 08/24/20 Previous Rx's Medication Instructions Recorded lancets 33 gauge #100 each 01/03/19 flash glucose scanning reader #1 each 05/09/19 insulin glargine 100 unit/mL (3 23 unit SUBCUT HS #15 ml 06/16/19 mL) subcutaneous pen pen needle, diabetic 31 gauge x #100 units 06/20/1902/24 flash glucose sensor #11 each 09/30/19 lisinopril 40 mg tablet 40 mg PO DAILY #90 tab 11/22/19 metformin 1,000 mg tablet 1,000 mg PO BID #180 tab 11/22/19 empagliflozin 10 mg tablet 10 mg PO QAM #90 tab 12/22/19 probenecid 500 mg tablet 500 mg PO BID #180 tab 02/06/20 atorvastatin 20 mg tablet 20 mg PO QHS #90 tab 04/09/20 atorvastatin 40 mg tablet 40 mg PO QHS #90 tab 04/09/20 ibuprofen 600 mg tablet 300 - 600 mg PO DAILY PRN #20 tab 04/09/20 hydrochlorothiazide 25 mg tablet 25 mg PO QAM #90 tab 07/10/20 polyethylene glycol 3350 17 238 g PO ONCE #238 g 08/16/20 gram/dose oral powder methocarbamol 500 mg tablet 500 - 1,000 mg PO TID PRN #40 tab 08/22/20 prednisone 10 mg tablet See Rx Instructions PO .daily in 08/22/20 AM #1 tab oxycodone-acetaminophen [Percocet] 1 tab PO Q6H PRN #8 tab 08/24/20 Allergies Allergy/AdvReac Type Severity Reaction Status Date / Time codeine AdvReac Intermediate GI Verified 08/24/20 13:33 glimepiride AdvReac Intermediate dizzy on Verified 08/24/20 13:33 1mg General Stated Complaint: Orthopedic BRII: 3 Review of Systems <Tracy Pino - Last Filed: 08/25/20 08:07> Narrative: Constitutional: Negative for weight loss, alert and oriented, well groomed, normal body habitus, appears comfortable. HEENT: Denies trauma, headaches, blurry vision, nasal discharge, sore throat, trouble swallowing. Chest: Denies chest pain, palpitations, irregular rhythm, hypertension. Respiratory: Denies Shortness of breath, cough, hemoptysis. GI: Denies abdominal pain, nausea, vomiting, diarrhea, constipation. : Denies dysuria, hematuria, flank pain, rectal bleeding. Neuro: Denies dizziness, blurry vision, weakness, syncope, headache or facial numbness. Hematologic: Denies easy bruising, intolerance to heat or cold, hair loss. PFSH <Tracy Pino - Last Filed: 08/25/20 08:07> Medical History Acute Lyme disease with neurological disease RX Doxy 06/23/2019 Binocular vision disorder with diplopia [place]; referred to Ophthal 06/16/2019 CKD (chronic kidney disease) stage 3, GFR 30-59 ml/min Diabetic retinopathy [place] 09/05/2019 Essential hypertension (03/26/08) Goal <130/80 Gout (10/11/87) probenecid Rx Hyperlipidemia (10/11/94) goal LDL<100 (diabetes) Kidney stone (09/11/02) 09/2002 Lipoma of back Retinal hemorrhage of both eyes 06/15/19 Asad Pulido OD--Neuro Lyme Tobacco dependence syndrome (12/07/05) chew Type II diabetes mellitus, uncontrolled 07/2002; initial BS 400, initially on insulin in hospital, then metformin at home; Mild DM retinopathy right, none left 06/17/16 Surgical History Cataract right (08/13/17) Family History Mother , Alzheimers at age 72. Alzheimer disease Brother Diabetes Stroke Social History Smoking/Tobacco Use Status: Current every day Tobacco Type: smokeless tobacco Smokeless tobacco user: chewing tobacco Smoking risk assessment performed?: Yes Alcohol Intake: current Alcohol Intake frequency: a few times a month Drug use: Never Substance use type: does not use Household members: none and other Details: Daughter, her and self, after 46 yrs of marriage, 08/29 Housing: house Communication Needs: Corrective Lenses Do you need help understanding health information?: Never Pets and animals: Yes Pets and animals: cat(s) What is your relationship status?: Panel score (0-1 are the most socially isolated patients): 0 What type of physical activity do you participate in: other Details: lawn mowing, weed waching, fishing Frequency: 3-4 times per week Do you feel safe at home: Yes Do you feel safe in your relationship?: Yes Exam <Tracy Pino - Last Filed: 08/25/20 08:07> Narrative Exam Narrative: Constitutional: Alert and oriented x3. Appears stated age. Normal body habitus. Head: Normocephalic, no trauma. Eyes: Pupils PERRLA, Red reflex noted, EOM's intact. Eyelids symmetrical without lesions, discharge, or swelling. ENT: Bilateral TM's WNL, External ear normal to inspection, no mastoid TTP, swelling, or erythema, Nasal turbinates WNL, no nasal discharge. Normal dentition, Posterior pharynx WNL, no exudate. Chest: RRR, Normal S1, S2, distal pulses intact. Resp: Lungs clear to auscultation bilaterally, no wheezes, rales, or rhonchi. Musculoskeletal: Patient has no calf redness no swelling, dorsal pedal pulses intact. He has midline L-spine tenderness palpation. Skin: No suspicious rashes or lesions. Capillary refill less than 2 sec. Neurologic: Cranial nerves II-XII intact. Alert and oriented x 3. DTR's intact. Hematologic/Lymphatic: No ecchymosis, no lymphadenopathy. Course <Tracy Pino - Last Filed: 08/25/20 08:07> Vital Signs Vital signs: Vital Signs Temperature 37.1 C 08/24/20 13:20 Pulse 82 08/24/20 13:20 Respiratory Rate 16 08/24/20 13:20 Blood Pressure 182/93 H 08/24/20 13:20 Pulse Oximetry 99 08/24/20 13:20 Temperature 37.1 C 08/24/20 13:20 Temperature Source Skin 08/24/20 13:20 Pulse 82 08/24/20 13:20 Respiratory Rate 16 08/24/20 13:20 Respiratory Effort 08/24/20 13:38 Blood Pressure 182/93 H 08/24/20 13:20 Pulse Oximetry 99 08/24/20 13:20 Oxygen Delivery Method Room Air 08/24/20 13:20 Oxygen Flow Rate 0 08/24/20 13:20 Pain Level 10 08/24/20 13:20 Comment 08/24/20 13:20 Sign Out <Tracy Pino - Last Filed: 08/25/20 08:07> Sign Out Data: Sign Out Comment: Pending labs, Care management consult , and possible admission Last updated by Tracy Pino at 08/24/20 16:11
[2020-08-24 15:39] LABS: Bilirubin Negative (Negative); Blood Trace-intact (Negative); Clarity Clear (Clear); Glucose 500 mg/dL (Negative); Ketones Negative (Negative); Leukocyte Esterase Negative (Negative); Nitrite Negative (Negative); Specific Gravity 1.025 (1.005-1.025); Urobilinogen 0.2 EU/dL (Up TO 0.2); pH 5.5 (5-8)
[2020-08-24 15:47] LABS: Bacteria Negative HPF (Negative); C & S Indicated? No; Casts Negative LPF (Negative); Crystals Negative HPF (Negative); Epithelial Cells Few HPF (Negative); Mucus Negative (Negative); RBC 0-2 HPF (0-2); WBC 0-2 HPF (0-5)
[2020-08-24 16:16] LABS: Abs Immature Grans 0.03 10^3/uL (0.0-0.06); Absolute Basophil Count 0.02 10^3/uL (0.0-0.2); Absolute Lymphocyte Count 0.66 10^3/uL (1.2-3.4); Absolute Neutrophil Count 9.08 10^3/uL (1.2-6.7); Basophils % 0.2; HCT 42.9 % (40.0-50.0); HGB 14.8 g/dL (13.5-17.5); Immature Grans % 0.3; Lymphocytes % 6.7; MCHC 34.5 % (32.0-36.0); MPV 10.5 fL (8.0-11.0); Neutrophils % 91.8; Nucleated RBC 0 %; Platelet Count 209 10^3/uL (130-400); RBC 4.93 10^6/uL (4.36-5.78); RDW 12.5 % (11.8-14.1); RDW-SD 39.8 fL; WBC 9.89 10^3/uL (4.4-10.8)
[2020-08-24 16:55] LABS: ALT 20 U/L (16-63); AST 14 U/L (15-37); Albumin 3.7 g/dL (3.4-5.0); Alkaline Phosphatase 94 U/L (46-116); Anion Gap 12.8 mmol/L (3-11); BUN 43 mg/dL (7-18); Bilirubin, Total 0.6 mg/dL (0.2-1.0); CO2 26.2 mmol/L (21.0-32.0); Calcium 9.1 mg/dL (8.5-10.1); Chloride 104 mmol/L (98-107); Estimated GFR 31.03 (mL/min/1.73m2); Glucose 198 mg/dL (74-106); Potassium 4.1 mmol/L (3.5-5.1); Sodium 143 mmol/L (136-145)
[2020-08-24] MEDS: Normal Saline 1,000 ML 1000 ML IV (17:30)
--- NOTE | 2020-08-24 18:10 | NUR.NOTE ---
Obtained a walker from Nurse loader operator supervisor and care management with a verbal order for patient to take home. Walker is to assist patient with ambulation.
== END 2020-08-24 18:05 | disposition home or self-care (01) ==
PROVIDERS: Registered Nurse Emergency; Emergency Provider Physician Assistant; PCP Nurse Practitioner Adult Health
DX: M54.16 Radiculopathy, lumbar region (principal); M25.551 Pain in right hip; R93.6 Abnormal findings on diagnostic imaging of limbs; R26.2 Difficulty in walking, not elsewhere classified; I12.9 Hypertensive chronic kidney disease with stage 1 through stage 4 chronic kidney disease, or unspecified chronic kidney disease; N18.30 Chronic kidney disease, stage 3 unspecified; E11.22 Type 2 diabetes mellitus with diabetic chronic kidney disease; Z79.4 Long term (current) use of insulin; E11.65 Type 2 diabetes mellitus with hyperglycemia
CPT/HCPCS: 36415; 80053; 96361; 96374; 96376; 99284; 72110; 72192; 73502; 81003; 81015; 85025

== ENCOUNTER 2020-08-30 01:20 | Outpatient (CLI) | payer MEDICARE, SELFPAY ==
--- NOTE | 2020-08-30 06:45 | DI.MRI_ITS ---
EXAM: MR LUMBAR SPINE WO CLINICAL HISTORY: RLE radiculopathy--suspect discogenic etiology,INTRACTABLE BACK PAIN,ABNL. TECHNIQUE: Multiplanar multisequence MRI of the Lumbar spine was performed. COMPARISON: CT CT PELVIC WO from 08/24/2020 CR XR LUMBAR SPINE COMPLETE from 08/24/2020 FINDINGS: Bones: The last intervertebral disc space is designated the L5/S1 level for the numbering purpose of this examination. The vertebral body heights are well maintained. There is again seen unilateral r ight spondylolysis at L5 but no spondylolisthesis. Alignment is satisfactory. The signal characteris tics are unremarkable. Cord: The conus tip ends at the T12 level. It is of normal size and signal intensity. T12-L1: No disc herniations or bulges are present. No central spinal canal or neural foraminal stenos is. L1-2: No disc herniations or bulges are present. No central spinal canal or neural foraminal stenosis . L2-3: No disc herniations or bulges are present. No central spinal canal or neural foraminal stenosis . L3-4: No disc herniations or bulges are present. No central spinal canal or neural foraminal stenosis . L4-5: There is a small central disc herniation slightly eccentric to the left. It does cause left la teral recess stenosis and mild compression upon the left L5 nerve root. There are degenerative marcano es of the facets resulting in mild narrowing of the central spinal canal.No significant neural forami nal stenosis is present. L5-S1: There is a diffuse disc bulge eccentric to the right. It causes marked right neural foraminal stenosis. And moderate left neural foraminal stenosis. There are degenerative changes of the facet joints. No significant central spinal canal stenosis. Soft tissues: The visualized SI joints and sacrum are well maintained. The paraspinal soft tissues ar e unremarkable. Note is made of a simple right renal cyst in the lower pole. IMPRESSION: 1. 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 2. Degenerative changes at L5-S1 resulting in marked right neural foraminal stenosis and moderate lef t neural foraminal stenosis. DATA REPOSITORY:
--- NOTE | 2020-08-30 06:52 | DI.MRI_ITS ---
EXAM: MR PELVIS WO/W CLINICAL HISTORY: Abn CT-pelvic, L iliac bone mottled,PAIN,R93.5,Q74.2 TECHNIQUE: Multiplanar multisequence MRI of Pelvis was performed. CONTRAST MATERIAL: IV Contrast: 8 mL of Dotarem contrast administered. COMPARISON: CT CT PELVIC WO from 08/24/2020 FINDINGS: Bones: There is no fracture or contusion pattern. There is normal signal in the bone marrow. Speci fically, there is normal signal seen in the left iliac bone. No evidence of osseous neoplasm or meta static disease. The SI joints and symphysis pubis are well maintained. Musculotendinous structures: There is feathery hyperintense signal on the T2 weighted images within the the right gluteus muscles. No focal muscle defect is identified. No focal fluid collection is s een. Following contrast administration no enhancement is identified. Similar findings are also seen in the right paraspinous muscles. The pelvic muscles otherwise show normal signal and size. No mus cular fatty atrophy is present. Intrapelvic structures demonstrate no significant abnormality. Joints: The sacroiliac joints are well maintained. The symphysis pubis is unremarkable. The hip giancarlo nts are well maintained. The labrum appear unremarkable on this examination. There is no evidence of suspicious enhancement. IMPRESSION: 1. Normal marrow signal. No evidence of osseous neoplasm or metastatic disease. 2. Hyperintense signal seen within the right gluteus muscles and right paraspinous muscles. No focal muscle defect or fluid collection is seen. No abnormal enhancement is identified. The findings pretty se a question of a grade 2 muscle strain. DATA REPOSITORY:
[2020-08-30 08:22] LABS: CREATININE 1.73 mg/dL (0.70-1.30)
[2020-08-30] MEDS: Normal Saline Flush 10 ML SYR IVP (09:27)
[2020-08-30] MEDS: Gadoterate meglumine 20 ML VIAL 8 ML IVP (09:28)
== END 2020-08-30 01:40 ==
PROVIDERS: Family Medicine; PCP Nurse Practitioner Adult Health; Visit Provider Nurse Practitioner Adult Health
DX: R93.5 Abnormal findings on diagnostic imaging of other abdominal regions, including retroperitoneum (principal); Q74.2 Other congenital malformations of lower limb(s), including pelvic girdle; M51.16 Intervertebral disc disorders with radiculopathy, lumbar region; M48.061 Spinal stenosis, lumbar region without neurogenic claudication
CPT/HCPCS: 72197; 72148; 82565

== ENCOUNTER 2020-10-10 21:27 | Emergency (ER) | payer MEDICARE, SELFPAY ==
--- NOTE | 2020-10-10 21:08 | W.ED.GENAD ---
Discharge Plan Disposition Patient Disposition: HOME Condition: Good Discharge Details Clinical Impression: Constipation Primary Care Provider: Rasheeda Melchor ED Provider: Franklin Azar Home Meds and New Rx's Prescriptions: New docusate sodium [Colace] 100 mg capsule 100 mg PO DAILY Qty: 20 RF: 0 Continued atorvastatin 20 mg tablet 20 mg PO QHS Qty: 90 RF: 3 atorvastatin 40 mg tablet 40 mg PO QHS Qty: 90 RF: 3 ibuprofen 600 mg tablet 300 - 600 mg PO DAILY PRN (Reason: pain) Qty: 20 RF: 0 Jardiance 10 mg tablet 10 mg PO QAM Qty: 90 RF: 3 (DME) lancets [OneTouch Delica Lancets] 33 gauge misc 1 ea Miscellaneous TID Qty: 100 RF: 3 (DME) FreeStyle [place] 14 Day [place] Misc See Dose Instructions .ROUTE .MEDSUPPLY Qty: 1 RF: 12 (DME) pen needle, diabetic [Pen Needle] 31 gauge x 5/16 needle 1 ea Miscellaneous DAILY Qty: 100 RF: 3 (DME) FreeStyle Germ[place] 14 Day Sensor Kit See Dose Instructions .ROUTE .MEDSUPPLY Qty: 11 RF: 6 metformin 1,000 mg tablet 1,000 mg PO BID Qty: 180 RF: 3 lisinopril 40 mg tablet 40 mg PO DAILY Qty: 90 RF: 3 probenecid 500 mg tablet 500 mg PO BID Qty: 180 RF: 3 hydrochlorothiazide 25 mg tablet 25 mg PO QAM Qty: 90 RF: 3 aspirin [Aspir-81] 81 MG tablet,delayed release (DR/EC) 81 mg PO DAILY RF: 0 acetaminophen 500 mg Capsule 1,000 mg PO PRN PRNRF: 0 tramadol 50 mg tablet 50 mg PO QID PRNRF: 0 Discharge Instructions Instructions: Constipation (ED) Additional Instructions: At this time your constipation has been remedied, please take the Colace every day to help with regular stool movement. Please drink plenty of fluids on a daily basis. If you notice any worsening of your symptoms, or any new symptoms such as vomiting, diarrhea, fever, chills, shortness of breath, chest pain, numbness, weakness, or fainting , please return immediately to the emergency department for reevaluation. Please follow up with your primary care provider as soon as possible for reassessment and reevaluation. As always, it was a pleasure participating in your medical care today. Referrals: Rasheeda Melchor NP [Primary Care Provider] - Discharge Data Discharge Date/Time-TO BE ENTERED AT DEPARTURE: 10/10/20 22:35 Medical Decision Making David 75-year-old male past medical history of type 2 diabetes, Lyme disease, chronic kidney disease stage III, hypertension, hyperlipidemia, lumbar disc prolapse, who is scheduled for surgery tomorrow, presents with complaint of constipation. Patient states that for the last 3 days he has not been able to poop. He has been on tramadol, and intermittent Percocets for pain. Aside for the pain in his rectum secondary to the constipation he denies any other complaints. He denies nausea vomiting or ankle paresis. He denies any other modifying factors. He denies any numbness or tingling in his groin. He denies any bowel or bladder incontinence. He denies any new weakness for his lower extremities. Exam demonstrates a nontender nonsurgical abdomen, rectal exam demonstrates good rectal tone, good rectal sensation, no signs of cauda equina syndrome. Rectal exam also shows notably large hard stool ball present, this was digitally disimpacted and broken up. Will give an enema. I feel that the patient would be less of a candidate for the opiate receptor antagonist as he does not use a ton of opiates. And suspect tramadol is more a component for his symptomatology. Will monitor closely and reassess. 10:05 PM The patient birthed two notably large bowel movements, he feels much better. Patient feels ready to go home. Will give Colace from use. I have extensively reviewed the treatment plan and discharge instructions with the patient. I have addressed all patient concerns at this time. The patient was made aware of what symptoms to monitor for that would warrant a return to the emergency department. Discussed the plan with the patient, they demonstrate verbal understanding and agreement with our assessment and plan at this time. HPI General Date/Time Provider Initiated Documentation: 10/10/20 21:30. HPI Narrative: David 75-year-old male past medical history of type 2 diabetes, Lyme disease, chronic kidney disease stage III, hypertension, hyperlipidemia, lumbar disc prolapse, who is scheduled for surgery tomorrow, presents with complaint of constipation. Patient states that for the last 3 days he has not been able to poop. He has been on tramadol, and intermittent Percocets for pain. Aside for the pain in his rectum secondary to the constipation he denies any other complaints. He denies nausea vomiting or ankle paresis. He denies any other modifying factors. He denies any numbness or tingling in his groin. He denies any bowel or bladder incontinence. He denies any new weakness for his lower extremities. Related Data Home Medications Medication Instructions Recorded Confirmed aspirin [Aspir-81] 81 mg PO DAILY 05/14/15 10/10/20 lancets 33 gauge #100 each 01/03/19 08/22/20 flash glucose scanning reader #1 each 05/09/19 08/22/20 pen needle, diabetic 31 gauge x #100 units 06/20/19 08/22/2002/24 flash glucose sensor #11 each 09/30/19 08/22/20 lisinopril 40 mg tablet 40 mg PO DAILY #90 tab 11/22/19 10/10/20 metformin 1,000 mg tablet 1,000 mg PO BID #180 tab 11/22/19 10/10/20 empagliflozin 10 mg tablet 10 mg PO QAM #90 tab 12/22/19 10/10/20 probenecid 500 mg tablet 500 mg PO BID #180 tab 02/06/20 10/10/20 atorvastatin 20 mg tablet 20 mg PO QHS #90 tab 04/09/20 10/10/20 atorvastatin 40 mg tablet 40 mg PO QHS #90 tab 04/09/20 10/10/20 ibuprofen 600 mg tablet 300 - 600 mg PO DAILY PRN #20 tab 04/09/20 10/10/20 hydrochlorothiazide 25 mg tablet 25 mg PO QAM #90 tab 07/10/20 10/10/20 acetaminophen 1,000 mg PO PRN PRN 08/24/20 10/10/20 docusate sodium [Colace] 100 mg PO DAILY #20 cap 10/10/20 tramadol 50 mg PO QID PRN 10/10/20 10/10/20 Previous Rx's Medication Instructions Recorded lancets 33 gauge #100 each 01/03/19 flash glucose scanning reader #1 each 05/09/19 pen needle, diabetic 31 gauge x #100 units 06/20/1902/24 flash glucose sensor #11 each 09/30/19 lisinopril 40 mg tablet 40 mg PO DAILY #90 tab 11/22/19 metformin 1,000 mg tablet 1,000 mg PO BID #180 tab 11/22/19 empagliflozin 10 mg tablet 10 mg PO QAM #90 tab 12/22/19 probenecid 500 mg tablet 500 mg PO BID #180 tab 02/06/20 atorvastatin 20 mg tablet 20 mg PO QHS #90 tab 04/09/20 atorvastatin 40 mg tablet 40 mg PO QHS #90 tab 04/09/20 ibuprofen 600 mg tablet 300 - 600 mg PO DAILY PRN #20 tab 04/09/20 hydrochlorothiazide 25 mg tablet 25 mg PO QAM #90 tab 07/10/20 docusate sodium [Colace] 100 mg PO DAILY #20 cap 10/10/20 Allergies Allergy/AdvReac Type Severity Reaction Status Date / Time codeine AdvReac Intermediate GI Verified 10/10/20 21:31 glimepiride AdvReac Intermediate dizzy on Verified 10/10/20 21:31 1mg General BRII: 3 Review of Systems All systems reviewed & are unremarkable except as noted in HPI and below PFSH Medical History Acute Lyme disease with neurological disease RX Doxy 06/23/2019 Binocular vision disorder with diplopia Tess; referred to Ophthal 06/16/2019 CKD (chronic kidney disease) stage 3, GFR 30-59 ml/min Diabetic retinopathy [place] 09/05/2019 Essential hypertension (03/26/08) Goal <130/80 Gout (10/11/87) probenecid Rx Hyperlipidemia (10/11/94) goal LDL<100 (diabetes) Kidney stone (09/11/02) 09/2002 Lipoma of back Retinal hemorrhage of both eyes 06/15/19 Asad Pulido OD--Neuro Lyme Tobacco dependence syndrome (12/07/05) chew Type II diabetes mellitus, uncontrolled 07/2002; initial BS 400, initially on insulin in hospital, then metformin at home; Mild DM retinopathy right, none left 06/17/16 Surgical History Cataract right (08/13/17) Family History Mother , Alzheimers at age 72. Alzheimer disease Brother Diabetes Stroke Social History Smoking/Tobacco Use Status: Current every day Tobacco Type: smokeless tobacco Smokeless tobacco user: chewing tobacco Smoking risk assessment performed?: Yes Alcohol Intake: current Alcohol Intake frequency: a few times a month Drug use: Never Substance use type: does not use Household members: none and other Details: Daughter, her and self, after 46 yrs of marriage, 08/29 Housing: house Communication Needs: Corrective Lenses Do you need help understanding health information?: Never Pets and animals: Yes Pets and animals: cat(s) What is your relationship status?: Panel score (0-1 are the most socially isolated patients): 0 What type of physical activity do you participate in: other Details: lawn mowing, weed waching, fishing Frequency: 3-4 times per week Do you feel safe at home: Yes Do you feel safe in your relationship?: Yes Exam Narrative Exam Narrative: 1.Const: Well-nourished, Well-developed, appearing stated age 2.Eyes: PERRL, no conjunctival injection, and symmetrical lids. 3.ENT: Atraumatic external nose and ears. Moist MM. Neck: Symmetric, trachea midline, No thyromegaly. 4.CVS: +S1/S2, No murmurs or gallops. Peripheral pulses 2+ and equal in all extremities. Brisk capillary refill in all extremities. 5.RESP: Unlabored respiratory effort. Clear to auscultation bilaterally. No wheezes rales or rhonchi 6.GI: Soft, Nontender/Nondistended, No hepatosplenomegaly. No guarding or rebound. Rectal exam was performed with female nurse at bedside, rectal tone intact, no decrease in perirectal or saddle region sensation. Notably hard stool ball present in the rectal vault. This was digitally broken up. Small amounts of stool were then removed digitally. 7.MSK: Normocephalic/Atraumatic, Extremities w/o deformity or ttp No cyanosis or clubbing, Normal movement of all extremities 8.Skin: Warm, Dry. No rashes or lesions. 9.Neuro: linseed cake trimmer II-XII grossly intact. Sensation grossly intact, no focal neurologic deficits. 10.Psych: (AAO) x3. Appropriate mood and affect
[2020-10-10 21:20] VITALS: BP 159/94; PULSE 111; RESP 20; TEMP 36.7; O2SAT 97
[2020-10-10 22:27] VITALS: BP 157/76; PULSE 109; RESP 18; O2SAT 96
== END 2020-10-10 22:35 | disposition home or self-care (01) ==
PROVIDERS: Emergency Provider Student in an Organized Health Care Education/Training Program; PCP Nurse Practitioner Adult Health
DX: K62.89 Other specified diseases of anus and rectum (principal); K59.00 Constipation, unspecified; E11.9 Type 2 diabetes mellitus without complications; Z79.84 Long term (current) use of oral hypoglycemic drugs; E11.22 Type 2 diabetes mellitus with diabetic chronic kidney disease; N18.30 Chronic kidney disease, stage 3 unspecified; I12.9 Hypertensive chronic kidney disease with stage 1 through stage 4 chronic kidney disease, or unspecified chronic kidney disease
CPT/HCPCS: 99282; 99283

== ENCOUNTER 2021-02-22 08:19 | Outpatient (CLI) | payer MEDICARE, SELFPAY ==
--- NOTE | 2021-02-22 08:15 | RT.EKG_ITS ---
APPROVED REPORT Exam: Resting ECG Reason for Exam: preop Patient Location: O HR:83 bpm ECG Measurements Heart Rate 83 AXIS DE 208 P 77 QRSd 95 QRS -11 QT 382 T 150 QTc 449 Conclusion Sinus rhythm...normal P axis, V-rate 60- 99 Atrial premature complex...SV complex w/ short R-R interval Nonspecific T abnormalities, lateral leads...T <-0.10mV, I aVL V5 V6
== END 2021-02-22 08:20 | disposition home or self-care (01) ==
LOC: DI.KIM 08:21
PROVIDERS: PCP Nurse Practitioner Adult Health; Visit Provider Nurse Practitioner Adult Health
DX: Z01.810 Encounter for preprocedural cardiovascular examination (principal); M54.16 Radiculopathy, lumbar region
CPT/HCPCS: 93010

== ENCOUNTER 2021-02-22 11:54 | Outpatient (REF) | payer MEDICARE, SELFPAY ==
[2021-02-22 16:19] LABS: HCT 43.6 % (40.0-50.0); HGB 14.5 g/dL (13.5-17.5); MCH 28.7 pg (27.0-33.0); MCHC 33.3 % (32.0-36.0); MCV 86.3 fL (80-95); MPV 11.4 fL (8.0-11.0); Platelet Count 189 10^3/uL (130-400); RBC 5.05 10^6/uL (4.36-5.78); RDW 12.5 % (11.8-14.1); RDW-SD 39.5 fL; WBC 9.12 10^3/uL (4.4-10.8)
[2021-02-22 16:28] LABS: Anion Gap 9.8 mmol/L (3-11); BUN 46 mg/dL (7-18); CO2 27.2 mmol/L (21.0-32.0); CREATININE 2.2 mg/dL (0.70-1.30); Calcium 9.2 mg/dL (8.5-10.1); Chloride 103 mmol/L (98-107); Estimated GFR 29.41 (mL/min/1.73m2); Glucose 286 mg/dL (74-106); Potassium 4.2 mmol/L (3.5-5.1); Sodium 140 mmol/L (136-145)
== END 2021-02-22 11:55 | disposition home or self-care (01) ==
LOC: LBN 11:54
PROVIDERS: PCP Nurse Practitioner Adult Health; Visit Provider Nurse Practitioner Adult Health
DX: M54.16 Radiculopathy, lumbar region (principal); Z01.818 Encounter for other preprocedural examination; M51.26 Other intervertebral disc displacement, lumbar region; M48.07 Spinal stenosis, lumbosacral region
CPT/HCPCS: 80048; 85027

== ENCOUNTER 2022-06-17 02:15 | Outpatient (CLI) | payer MEDICARE, SELFPAY ==
[2022-06-17 08:22] LABS: Hemoglobin A1C 7.7 % (<5.7)
[2022-06-17 08:26] LABS: Anion Gap 10.4 mmol/L (3-11); BUN 37 mg/dL (7-18); CO2 27.6 mmol/L (21.0-32.0); CREATININE 1.9 mg/dL (0.70-1.30); Calcium 8.9 mg/dL (8.5-10.1); Calculated LDL 83 mg/dL (<100); Chloride 104 mmol/L (98-107); Cholesterol 152 mg/dL (<200); Estimated GFR 36.33 (mL/min/1.73m2); Glucose 170 mg/dL (74-106); HDL Cholesterol 50 mg/dL (40-60); Potassium 4.2 mmol/L (3.5-5.1); Sodium 142 mmol/L (136-145); Triglyceride 96 mg/dL (<150)
[2022-06-17 08:43] LABS: Uric Acid 5.9 mg/dL (3.5-7.2)
[2022-06-17 18:18] LABS: Albumin ug/mg Crea 3285 (<30); Albumin, Ur 83.1 mg/dL (See Note); Creatinine, Ur 25.3 mg/dL (See Note)
== END 2022-06-17 02:16 | disposition home or self-care (01) ==
LOC: LBO 02:16
PROVIDERS: Absent Provider Nurse Practitioner Adult Health; PCP Nurse Practitioner Adult Health; Visit Provider Nurse Practitioner Adult Health
DX: E11.65 Type 2 diabetes mellitus with hyperglycemia (principal); E78.5 Hyperlipidemia, unspecified; I10 Essential (primary) hypertension; M10.9 Gout, unspecified; N18.30 Chronic kidney disease, stage 3 unspecified
CPT/HCPCS: 36415; 80048; 80061; 82043; 82570; 83036; 84550

== ENCOUNTER → 2022-07-15 12:27 | Outpatient (BNVA) | payer MEDICARE, SELFPAY | PROVIDERS: PCP Nurse Practitioner Adult Health; Referring Provider Nurse Practitioner Adult Health; Visit Provider Surgery | DX: Z86.010 Personal history of colon polyps (principal); Z12.11 Encounter for screening for malignant neoplasm of colon ==

== ENCOUNTER 2022-07-28 09:41 | Day surgery (SDC) | payer MEDICARE, SELFPAY ==
[2022-07-28] VITALS (7 sets, daily range): BP systolic 97–135; BP diastolic 59–103; PULSE 79–93; RESP 11–18; TEMP 36.5–37.1; O2SAT 97–100; BMI 29.7
--- NOTE | 2022-07-28 00:59 | W.COLOREPORT ---
Colonoscopy Report Date of procedure: 07/28/22 Pre-op diagnosis general: screening colonoscopy Post-op diagnosis procedure note: other (Diverticulosis, colorectal polyps) Procedure: Screening colonoscopy Surgeon: Jin Valverde Anesthesia Type: General:No Airway Estimated blood loss (mL): 30 Pathology: other (Colorectal polyps at 120 cm, 90 cm, 55 cm) Complications: None Disposition: same day Indications: Antony is a 76-year-old male following up on another screening colonoscopy Prep: Miralax/Dulcolax Procedure Start Time: 12:18 Procedure End Time: 12:53 Retraction Time: 28 Findings: Sigmoid diverticulosis, polyps at 55, 90, and 120 cm Procedure Description: After the induction of monitored anesthetic care, and with the patient in left lateral decubitus position, I began by performing an external anorectal exam.? Perineum and skin were normal, as was the anal verge.? There was no evidence of external hemorrhoids.? Next, I performed a digital rectal exam.? I did not appreciate any abnormal findings.? Next, I advanced a colonoscope into the rectal vault.? I performed retroflexion.? I did not see signs of pathologic internal hemorrhoids.? Using insufflation, I then advanced the colonoscope beyond the rectal folds and into the sigmoid colon before advancing towards the cecum.? There was moderate sigmoid diverticulosis. The quality of the prep was adequate.? The scope was noted to be in the cecum by identification of the ileocecal valve and appendiceal orifice.? I then began withdrawing the colonoscope using repeated irrigation as necessary for full evaluation of the colonic mucosa. Around 120 cm cm from the anal verge I identified a 0.75 cm polyp. ?It appeared sessile in character. ?I was able to remove this with a cold forceps. ?I examined the site, and there was minimal bleeding. Similarly, there was a 0.75 cm sessile polyp at 90 cm that I retrieved with the snare. Bleeding was minimal. Finally, I identified 1 other 0.5 cm sessile polyp at 55 cm. I performed a polypectomy here with cold forceps. Once this was completed, I continued to withdraw the scope and examine the remainder of the colonic mucosa.?Once the scope was withdrawn to the level of the rectum, great care was taken to examine portions of the rectal folds.? Finally, the scope was withdrawn and the patient was brought to the same-day surgery recovery unit as the anesthetic wore off. ?The findings and instructions were shared with the patient prior to discharge.
--- NOTE | 2022-07-28 01:00 | PDOC.DSDIS_ITS ---
Discharge Plan Disposition Patient Disposition: HOME Condition: Good Discharge Details Reason For Visit: Screening colonoscopy Attending Provider: Jin Valverde Primary Care Provider: Rasheeda Melchor Home Meds and New Rx's Prescriptions: Continued hydrochlorothiazide 25 mg tablet 25 mg PO QAM Qty: 90 3RF Rx Instructions: Blood pressure lisinopril 40 mg tablet 40 mg PO DAILY Qty: 90 3RF Rx Instructions: to lower B/P under 130/80 metformin 1,000 mg tablet 1,000 mg PO BID Qty: 180 3RF Rx Instructions: helps to control diabetes probenecid 500 mg tablet 500 mg PO BID Qty: 180 3RF Rx Instructions: to prevent Gout (DME) FreeStyle Germ[place] 14 Day [place] Misc See Dose Instructions .ROUTE .MEDSUPPLY Qty: 1 12RF Dose Instruction: As directed Label Comments: pt. checked BS on arrival, 153 Rx Instructions: DX 11.65 to monitor glucose daily for goal A1C less than 7.5 atorvastatin 20 mg tablet See Rx Instructions .ROUTE .COMPLEX Qty: 90 3RF Dose Instruction: TAKE 1 TABLET BY MOUTH EVERY DAY AT BEDTIME WITH 40 MG TABLET FOR TOTAL DOSE OF 60 MG Rx Instructions: TAKE 1 TABLET BY MOUTH EVERY DAY AT BEDTIME WITH 40 MG TABLET FOR TOTAL DOSE OF 60 MG atorvastatin 40 mg tablet See Rx Instructions .ROUTE .COMPLEX Qty: 90 3RF Dose Instruction: TAKE 1 TABLET BY MOUTH EVERY DAY AT BEDTIME WITH 20 MG FOR TOTAL 60 MG DAILY FOR CHOLESTROL AND DM Rx Instructions: TAKE 1 TABLET BY MOUTH EVERY DAY AT BEDTIME WITH 20 MG FOR TOTAL 60 MG DAILY FOR CHOLESTROL AND DM (DME) FreeStyle [place] 14 Day Sensor Kit See Dose Instructions .ROUTE .MEDSUPPLY Qty: 11 6RF Dose Instruction: As directed Rx Instructions: DX 11.65 to monitor glucose daily for goal A1C less than 7.5 Jardiance 25 mg tablet 25 mg PO QAM Qty: 90 3RF Rx Instructions: Diabetes aspirin [Aspir-81] 81 MG tablet,delayed release (DR/EC) 81 mg PO DAILY Discontinued bisacodyl [Dulcolax (bisacodyl)] 5 mg tablet,delayed release (DR/EC) 5 mg PO ONCE Qty: 4 0RF Rx Instructions: Take according to provider's instructions for colonoscopy prep. polyethylene glycol 3350 17 gram/dose powder 17 g PO ONCE Qty: 238 0RF Rx Instructions: To be taken as directed by prescriber's office for colonoscopy prep. Discharge Instructions Instructions: Diverticulosis (DC), Colorectal Polyps (DC) Additional Instructions: 1. If tolerated, consume a soft, low fiber diet for 1-2 days. 2. Do not drive, drink alcohol, operate machinery, make critical decisions, or do activities that require coordination or balance for 24 hours. 3. Because air was put into your colon during the procedure, expelling air from your rectum (passing gas or farting) is normal. 4. You may not have a bowel movement for 1-3 days because of the colonoscopy prep. This is normal. 5. Go directly to the emergency room if you notice any of the following: Develop chills (warm to touch), or if you have a thermometer and your temperature is above 101 Difficulty breathing or difficultly swallowing Persistent vomiting Severe abdominal pain, other than gas cramps Severe chest pain Black, tarry stools Any bleeding ? exceeding one tablespoon 6. Call your physician if the site where your intravenous was started becomes red, swollen, painful, and warm to touch. 7. Your physician has reviewed your pre-procedure medications. Please continue to take those medications as previously ordered. You will be given specific information/education regarding any changes to your medications before leaving. Activity:: Activity as Tolerated Diet:: As Tolerated Discharge Orders Discharge Orders: Discharge Order (Routine); Ordered 07/28/22 Ordered By: Jni Valverde DS: Diagnosis Discharge Diagnosis (1) Colorectal polyps: Status: Acute Asessment and Plan: My office will contact you with results of the biopsy
[2022-07-28] MEDS: Lactated Ringers 1,000 ML 80 ML IV (10:45)
--- NOTE | 2022-07-28 11:20 | W.ANESPRE ---
General Info Date of Service Date Performed: 07/28/22 Height: 5 ft 5 in Weight: 81 kg Body Mass Index (BMI): 29.7 Surgical Procedure: Operation Date: 07/28/22 10:05 Proposed Procedure Side Surgeon p Colonoscopy Mica Avalos MD Meds Allergies and Home Medications Allergies Allergy/AdvReac Type Severity Reaction Status Date / Time codeine AdvReac Intermediate GI Verified 07/28/22 10:22 glimepiride AdvReac Intermediate dizzy on Verified 07/28/22 10:22 1mg Home Medication Medication Instructions Recorded aspirin 81 mg tablet,delayed 81 mg PO DAILY 05/14/15 release (Aspir-) flash glucose scanning reader #1 ea 05/09/19 (FreeStyle Germ[place] 14 Day [place]) atorvastatin 20 mg tablet See Rx Instructions .Route 11/27/21 .COMPLEX #90 tabs atorvastatin 40 mg tablet See Rx Instructions .Route 11/27/21 .COMPLEX #90 tabs flash glucose sensor (FreeStyle #11 ea 12/11/21 Germain 14 Day Sensor kit) empagliflozin 25 mg tablet 25 mg PO QAM #90 tabs 02/21/22 (Jardiance) lisinopril 40 mg tablet 40 mg PO DAILY #90 tabs 03/25/22 metformin 1,000 mg tablet 1,000 mg PO BID #180 tabs 03/25/22 probenecid 500 mg tablet 500 mg PO BID #180 tabs 03/25/22 hydrochlorothiazide 25 mg tablet 25 mg PO QAM #90 tabs 06/23/22 Current Visit Medications: Current Medications Generic Name Dose Route Start Last Admin Trade Name Freq PRN Reason Stop Dose Admin Hyoscyamine Sulfate 0.125 mg 07/28/22 01:03 Hyoscyamine 0.125 Mg Sl/Oral/Chew SL DIRECTED PRN Ringer's Solution 1,000 mls @ 80 mls/hr 07/28/22 06:00 07/28/22 10:45 IV 07/28/22 23:59 80 mls/hr INFUSION RAMON Administration IV Miscellaneous Supplies 1 each 07/28/22 06:00 Iv Access IV 07/28/22 23:59 DIRECTED RAMON Ondansetron HCl 4 mg 07/28/22 01:03 Ondansetron 4 Mg/2 Ml Vial IVP Q4H PRN PRN Nausea / Vomiting Sodium Chloride 0 ml 07/28/22 06:00 Normal Saline Flush 10 Ml Syr IV 07/28/22 23:59 PRN PRN Sodium Chloride 0 ml 07/28/22 06:00 Normal Saline 10 Ml Vial IJ 07/28/22 23:59 DIRECTED PRN Sterile Water 0 ml 07/28/22 06:00 Water,Injection,Sterile 10 Ml Vial IJ 07/28/22 23:59 DIRECTED PRN PFSH Active Problems Active Problems: Problem Status Onset Code Adenomatous polyp of colon 06/21/05 D12.6 Age-related nuclear cataract of left eye 05/13/17 H25.12 Age-related nuclear cataract of right eye 05/28/17 H25.11 BMI 35.0-35.9,adult 12/07/05 Z68.35 Essential hypertension 03/26/08 I10 Gout 10/11/87 M10.9 Hyperlipidemia 10/11/94 E78.5 Tobacco dependence syndrome 12/07/05 F17.200 Type II diabetes mellitus, uncontrolled E11.65 Diabetic retinopathy E11.319 CKD (chronic kidney disease) stage 3, GFR 30-59 ml/min N18.3 Screening for colon cancer Z12.11 Medical History Medical History Abnormal prominence of iliac crest CT; Not seen on MRI. Acute Lyme disease with neurological disease RX Doxy 06/23/2019 Binocular vision disorder with diplopia Tess; referred to Ophthal 06/16/2019 DJD (degenerative joint disease), lumbosacral Foraminal stenosis of lumbosacral region Herniation of intervertebral disc between L4 and L5 Kidney stone (09/11/02) 09/2002 Lipoma of back Lumbar radiculopathy [facility] 10/18/20 Lumbar Epidural 12/13/20 Caudal epidural injection Retinal hemorrhage of both eyes 06/15/19 Asad Pulido OD--Neuro Lyme Medical History Comments:: Irregular HR auscultated today. Pt. reports when he had his teeth pulled he woke up wild Surgical History Surgical History (Updated 07/28/22 @ 10:28 by Radha Ann) Cataract right (08/13/17) Hx of colonoscopy Hx of lumbar discectomy (~03/2021) L5-S1 [place] Hx of tooth extraction Tobacco Smoking/Tobacco Use Status: Current every day Tobacco Type: smokeless tobacco Smokeless tobacco user: chewing tobacco Alcohol Alcohol Intake: current Alcohol intake frequency: a few times a month Alcohol type: beer Substance Use Substance use: Never Substance use type: does not use Details: chewed tobacco: t-1 Vital Signs and Lab Results Vital Signs Most Recent Vital Signs in EMR: Most Recent Vital Signs Temp Pulse Resp BP Pulse Ox 36.7 C 89 16 135/89 98 07/28/22 10:15 07/28/22 10:15 07/28/22 10:15 07/28/22 10:15 07/28/22 10:15 Point of Care Results Point of Care Results: Finger Stick Blood Glucose 151 07/28/22 10:42 Lab Results Blood Type / Crossmatch: No Data to Display Complete Blood Count: No Data to Display Complete Metabolic Panel: No Data to Display Liver Function Panel: No Data to Display Coagulation Panel: No Data to Display Cardiac Panel: No Data to Display Arterial Blood Gas: No Data to Display Venous Blood Gas: No Data to Display Pancreas Panel: No Data to Display Thyroid Panel: No Data to Display Infectious Disease: No Data to Display Blood Cultures: No Data to Display Toxicology Panel: No Data to Display Imaging and Studies Imaging and Studies Study information below may be from another EMR and interpreted by another provider. Please see original notes in EMR for more complete details. EKG Summary: 02/22/2021 Sinus rhythm...normal P axis, V-rate 60- 99 Atrial premature complex...SV complex w/ short R-R interval Nonspecific T abnormalities, lateral leads...T <-0.10mV, I aVL V5 V6 Anesthesia Assessment and Plan Anesthesia History Personal History: No History of Anesthesia Complications Family History: No Family History of Anesthesia Complications Exercise Tolerance Exercise Tolerance: Metabolic Equivalents>4 Pertinent Negatives Pertinent Negatives: No Symptoms of GERD, No Major Cardiovascular Symptoms or Complaints, No Major Pulmonary Symptoms or Complaints and No History of CVA/TIA Cardiac & Pulmonary Exam Cardiac Exam: Normal S1/S2 Heart Sounds Pulmonary Exam: Clear Bilateral Breath Sounds Implantable Cardiac Device Does patient have a Pacemaker or an ICD?: No Airway Exam Known Difficult Airway: No Mallampati Class: 2 Mouth Opening: Normal (> 3cm) Thyromental Distance: Greater than 3 cm Neck Range of Motion: Full ROM Neck Circumference: Normal Teeth Condition: Normal Dentition and Edentulous ASA Classification ASA Score: ASA 3 Emergency Case?: No NPO Status NPO Status: NPO Clears >2 hours, Solids >8 hours Anesthesia Plan Resuscitation Status: Full Code Anesthesia Technique: General Anesthesia Airway Planned: Natural Airway Monitors Used: Standard Monitors
--- NOTE | 2022-07-28 12:23 | BOWEL_PTH ---
PATIENT: Antony Elliott LOC: [facility] U#:[id number] AGE/SX: 76/M ROOM: RE07/28/[address]: Jin Valverde MD : 1945 BED: DIS: 07/28/2022 SPEC #: [id number] RECD: 07/28/22 17:07 STATUS: GAMAL RE #: [id number] SUJEY: 07/28/22 12:[address]: Jin Valverde DEPT: Surgical Specimen RECD BY: Verito Osborn ENTERED: 07/28/22 17:08 SP TYPE: Bowel OTHR DR: Rasheeda Melchor, CASANDRA Tissues: 1 - BIOPSY BOWEL 2 - BIOPSY BOWEL 3 - BIOPSY BOWEL Procedures: GROSS AND MICRO LEVEL 4 Comments: [id number]
--- NOTE | 2022-07-28 13:24 | W.ANESPOSTOP ---
Postoperative Evaluation Date, Time and Location Date Performed: 07/28/22 Time Performed: 13:20 Patient Location: PACU Vital Signs Most Recent Imported Vital Signs: Most Recent Vital Signs Temp Pulse Resp BP Pulse Ox 37.1 C 85 11 L 120/80 99 07/28/22 13:02 07/28/22 13:17 07/28/22 13:17 07/28/22 13:17 07/28/22 13:17 Pain Score Most Recent Pain Score: Most Recent Pain Score Pain Level 0 07/28/22 10:15 Assessment Mental Status: Awake (Alert & Oriented to Patient Baseline) Airway and Respiratory Function: Patent airway with normal (patient baseline) respiratory exam Cardiovascular Function: Hemodynamically Stable Hydration Status: Adequately Hydrated Nausea & Vomiting: No Nausea or Vomiting Pain: Pt. Denies Any Pain Peripheral Nerve Block: Patient did not receive a nerve block Postoperative Comments:: Sent to [facility] for continued monitoring of BP due to frequent need for pressors intraop. BP stable
== END 2022-07-28 13:56 | disposition home or self-care (01) ==
PROVIDERS: PCP Nurse Practitioner Adult Health; Visit Provider Surgery
PROC: 0DJD8ZZ Inspection of Lower Intestinal Tract, Via Natural or Artificial Opening Endoscopic (ICD-10-PCS; CPT 45378; principal; 2022-07-28 10:00)
DX: Z12.11 Encounter for screening for malignant neoplasm of colon (principal); K57.30 Diverticulosis of large intestine without perforation or abscess without bleeding; K63.5 Polyp of colon
CPT/HCPCS: 45385; 45380; 88305

== ENCOUNTER 2022-08-14 11:29 | Outpatient (CLI) | payer MEDICARE, SELFPAY ==
[2022-08-14 11:21] LABS: Abs Immature Grans 0.03 10^3/uL (0.0-0.06); Absolute Basophil Count 0.08 10^3/uL (0.0-0.2); Absolute Eosinophil Count 0.31 10^3/uL (0.0-0.7); Absolute Lymphocyte Count 1.17 10^3/uL (1.2-3.4); Absolute Monocyte Count 0.33 10^3/uL (0.1-0.8); Absolute Neutrophil Count 4.84 10^3/uL (1.2-6.7); Basophils % 1.2; Eosinophils % 4.6; HGB 14.4 g/dL (13.5-17.5); Immature Grans % 0.4; Lymphocytes % 17.3; MCH 29.4 pg (27.0-33.0); MCHC 33.5 % (32.0-36.0); MCV 88 fL (80-95); Monocytes % 4.9; Neutrophils % 71.6; Platelet Count 219 10^3/uL (130-400); RBC 4.89 10^6/uL (4.36-5.78); RDW 13.1 % (11.8-14.1); RDW-SD 42.3 fL; WBC 6.76 10^3/uL (4.4-10.8)
[2022-08-14 11:24] LABS: ESR 2 mm/hr (0-20)
[2022-08-14 11:35] LABS: Calculated LDL 77 mg/dL (<100); Cholesterol 158 mg/dL (<200); Glucose 180 mg/dL (74-106); HDL Cholesterol 52 mg/dL (40-60); Triglyceride 148 mg/dL (<150)
[2022-08-14 11:36] LABS: C-Reactive Protein < 0.05 mg/dL (0.0-0.3)
[2022-08-18 12:06] LABS: Lyme Ab w Rflx to Lyme Confirm Negative (Negative)
== END 2022-08-14 11:30 | disposition home or self-care (01) ==
LOC: LBO 11:29
PROVIDERS: PCP Nurse Practitioner Adult Health; Visit Provider Optometrist
DX: E11.3313 Type 2 diabetes mellitus with moderate nonproliferative diabetic retinopathy with macular edema, bilateral (principal); H49.22 Sixth [abducent] nerve palsy, left eye
CPT/HCPCS: 36415; 80061; 82947; 85652; 83036; 85025; 86140; 86618

== ENCOUNTER → 2022-09-09 08:02 | Outpatient (BNVA) | payer MEDICARE, SELFPAY | PROVIDERS: PCP Nurse Practitioner Adult Health; Referring Provider Nurse Practitioner Adult Health; Visit Provider Psychiatry & Neurology Neurology | DX: E11.319 Type 2 diabetes mellitus with unspecified diabetic retinopathy without macular edema (principal); E11.22 Type 2 diabetes mellitus with diabetic chronic kidney disease; I12.9 Hypertensive chronic kidney disease with stage 1 through stage 4 chronic kidney disease, or unspecified chronic kidney disease; N18.9 Chronic kidney disease, unspecified; Z79.82 Long term (current) use of aspirin; H49.22 Sixth [abducent] nerve palsy, left eye | CPT/HCPCS: 99215 ==

== ENCOUNTER 2022-10-22 02:15 | Outpatient (CLI) | payer MEDICARE, SELFPAY ==
--- NOTE | 2022-10-22 14:37 | DI.US_ITS ---
APPROVED REPORT EXAM: Comprehensive 2D, Doppler, and color-flow Echocardiogram Patient Location: Out-Patient [place] Editor: Sandra Diamond RDCS (AE) Indications: Murmur, [id number] palsy Other Information Study Quality: Adequate Conclusion Normal left ventricular wall thickness and chamber size. Estimated ejection fraction is 60%. Wall m otion is normal Normal right ventricular size and systolic function Both atria are normal in size Aortic valve is trileaflet and sclerotic without stenosis or regurgitation There is no additional structural or hemodynamically significant valvular disease Estimated right ventricular systolic pressure is 23 mmHg Wall motion Left Ventricle The left ventricle is normal size. The left ventricular systolic function is normal. The left ventric ular ejection fraction is within the normal range. There is normal left ventricular wall thickness. T here is normal LV segmental wall motion. There is no ventricular septal defect visualized. LVEF is 60 %. Right Ventricle The right ventricle is normal size. The right ventricular systolic function is normal. The RVSP is 23 .0mmHg. Atria The left atrium size is normal. The right atrium size is normal. The interatrial septum is intact wit h no evidence for an atrial septal defect. Aortic Valve The Aortic valve is sclerotic. Aortic valve is trileaflet. There is no aortic valvular stenosis. No a ortic regurgitation is present. Mitral Valve The mitral valve is normal in structure. No evidence of mitral valve stenosis. Trace mitral regurgit ation. Tricuspid Valve The tricuspid valve is normal in structure. There is no tricuspid valve stenosis. Trace tricuspid reg urgitation. Pulmonic Valve The pulmonary valve is normal in structure. There is no pulmonic valvular stenosis. Trace pulmonic re gurgitation. Great Vessels The aortic root is normal in size. The ascending aorta is normal in size. IVC is normal in size and c ollapses >50% with inspiration. Pericardium There is no pericardial effusion. 2D Dimensions IVSD d PLAX 0.90 cm M: 0.6-1.2 LV Vol A2C d MOD 102.5 mL LVPW d PLAX 0.94 cm M: 0.6 - 1.2 LV Vol A4C d MOD 76.4 mL LVID d PLAX 4.96 cm M: 4.2 - 5.8 LA vol/ BSA A2C s A-L 24.6 mL/m2 LVDs 3.30 cm M: 2.5 - 4.0 LA vol/ BSA A4C s A-L 18.0 mL/m2 Ao Root d 3.21 cm M: 3.1 - 3.7 LA Vol/ BSA Biplane s A-L 22.2 mL/m2 RA Area A4C 9.43 cm2 LA Area A4C s MOD 14.28 cm2 RA Vol/ BSA A4C s A-L 9.7 mL/m2 LA Area A2C s MOD 17.65 cm2 Ao Asc Diam d 3.46 cm M: 2.6 - 3.4 LV EF A4C MOD 60.7 % LV EF Teichholz 61.8 % LV EF A2C MOD 59.0 % LVEF (Easton's) 59.69 % M: 52 - 72 LV EF Biplane MOD 59.7 % LV Volume 69.40 mL M: 62 - 150 SV 54.53 mL LV Volume Index 35.95 mL/m2 M: 34 - 74 SV Index 28.31 mL/m2 LV Vol Biplane MOD 91.4 mL FS 33.35 % M-Mode TAPSE 2.15 cm (M/F) >1.7 LV Diastology MV E' medial 0.054 (>0.07 m/s) E/A Ratio 0.6 LV E/e MED 12.60 (<14) MV E Vmax 0.68 (0.4-1.3 m/s) MV E' lateral 0.055 (>0.1 m/s) MV A Vmax 1.05 (0.4-1.3 m/s) LV E/e LAT 12.30 (<14) MV E/A Ratio 0.63 MV E/E' medial 12.61 MV E/E' lateral 12.33 Aortic Valve LVOT Area 3.42 cm2 AoV Area Vmax 1.53 cm2 LVOT Vmax 0.90 m/s AoV Area/ BSA (Vmax) 0.79 cm2/m2 LVOT Mean Flex. 0.57 m/s KAREN Mean Flex. 1.35 cm2 LVOT Peak Grad 3.3 mmHg KAREN Mean Flex. Index 0.70 cm2/m2 LVOT Mean Grad 1.6 mmHg LVOT VTI 0.155 m LVOT Diam s 2.05 cm AoV Vmax 2.02 m/s Velocity Ratio 0.45 AoV Mean Flex. 1.44 m/s AoV Peak Grad 16.3 mmHg LVOT SV 53.19 mL AoV Mean Grad 9.2 mmHg AoV VTI 0.341 m AoV Area VTI 1.56 cm2 AoV Area/ BSA (VTI) 0.81 cm/m2 Mitral Valve MV DT 228 (160-240 msec) MV PHT 66 msec MV Area PHT 3.33 cm2 MV VTI 0.251 m MV Area VTI 2.12 (4.0-6.0 cm2) Pulmonary Valve PV Vmax 0.97 (0.5-1.5 m/s) RVOT Peak Gr. 2.25 mmHg PV Peak Grad 3.8 mmHg RVOT Mean Gr. 0.90 mmHg PV Mean Grad 2.1 mmHg RVOT VTI 0.133 m PV VTI 0.153 m RVOT Vmax 0.75 m/s Tricuspid Valve TR Peak Grad 20.0 mmHg TR Vmax 2.24 m/s RA Pressure 3.00 mmHg RVSP (TR) 23.0 mmHg
== END 2022-10-22 02:35 ==
LOC: DI 02:16
PROVIDERS: PCP Nurse Practitioner Adult Health; Visit Provider Nurse Practitioner Adult Health
DX: H49.22 Sixth [abducent] nerve palsy, left eye (principal); R01.1 Cardiac murmur, unspecified
CPT/HCPCS: 93306

== ENCOUNTER → 2022-11-11 14:35 | Outpatient (BNVA) | payer MEDICARE, SELFPAY | PROVIDERS: PCP Nurse Practitioner Adult Health; Referring Provider Nurse Practitioner Adult Health; Visit Provider Psychiatry & Neurology Neurology | DX: I12.9 Hypertensive chronic kidney disease with stage 1 through stage 4 chronic kidney disease, or unspecified chronic kidney disease (principal); E11.22 Type 2 diabetes mellitus with diabetic chronic kidney disease; N18.9 Chronic kidney disease, unspecified; H49.22 Sixth [abducent] nerve palsy, left eye | CPT/HCPCS: 99213 ==

== ENCOUNTER 2023-09-14 04:02 | Outpatient (CLI) | payer MEDICARE, SELFPAY ==
[2023-09-14 09:21] LABS: ALT 20 U/L (16-63); AST 18 U/L (15-37); Albumin 3.8 g/dL (3.4-5.0); Alkaline Phosphatase 126 U/L (46-116); Anion Gap 13.9 mmol/L (3-11); BUN 32 mg/dL (7-18); Bilirubin, Total 0.4 mg/dL (0.2-1.0); CO2 23.1 mmol/L (21.0-32.0); CREATININE 2.4 mg/dL (0.70-1.30); Calcium 9.6 mg/dL (8.5-10.1); Calculated LDL 84 mg/dL (<100); Chloride 105 mmol/L (98-107); Cholesterol 169 mg/dL (<200); Estimated GFR 27.11 (mL/min/1.73m2); Glucose 151 mg/dL (74-106); HDL Cholesterol 47 mg/dL (40-60); Potassium 3.8 mmol/L (3.5-5.1); Sodium 142 mmol/L (136-145); Total Protein 7.6 g/dL (6.4-8.2); Triglyceride 190 mg/dL (<150)
[2023-09-14 09:26] LABS: Hemoglobin A1C 7.6 % (<5.7)
[2023-09-14 09:26] LABS: COMMENT (LAB VIEW ONLY) 47.93 mg/dL
[2023-09-14 09:30] LABS: Uric Acid 6.8 mg/dL (3.5-7.2)
== END 2023-09-14 04:03 | disposition home or self-care (01) ==
LOC: LBO 04:02
PROVIDERS: PCP Nurse Practitioner Adult Health; Visit Provider Nurse Practitioner Adult Health
DX: E11.65 Type 2 diabetes mellitus with hyperglycemia (principal); E78.5 Hyperlipidemia, unspecified; I10 Essential (primary) hypertension; M10.9 Gout, unspecified
CPT/HCPCS: 36415; 80053; 80061; 82043; 82570; 83036; 84550

== ENCOUNTER → 2023-11-10 01:31 | Outpatient (CLI) | payer MEDICARE, SELFPAY ==
--- NOTE | 2023-11-10 06:45 | DI.MRI_ITS ---
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 TECHNIQUE: Multiplanar multisequence MRI of the Lumbar spine was performed. COMPARISON: CT CT PELVIC WO from 08/24/2020 MR MR LUMBAR SPINE WO from 08/30/2020 FINDINGS: Conus medullaris is at normal level. There is no evidence of conus mass nor subjacent clumping of in trathecal nerve roots to suggest arachnoiditis. The distal thecal sac appears unremarkable.There is no evidence of Tarlov intrasacral cysts nor other significant findings within the sacral canal Bones:There are no fractures nor ominous osseous lesions in the lumbar vertebral bodies and visualize d sacrum. With respect to the individual levels... T12-L1: Unremarkable L1-2: Normal disc height and signal. No disc herniation nor central canal stenosis.No foraminal steno sis L2-3: Normal disc height. No disc herniation nor central canal stenosis.No foraminal stenosis.No face t arthropathy. L3-4: Normal disc height. No disc herniation or central canal stenosis.No foraminal stenosis.No face t arthropathy. L4-5: There is mild disc space narrowing on the right side of the disc space. There is a central pos terior disc protrusion which extends posteriorly 6.5 mm and is approximately 1.3 cm wide and which de scends behind the L5 vertebra for a distance of 12 mm, similar to the previous study. This slightly indents the anterior thecal sac. The disc herniation does not extend into the exiting neural foramin a. There is no significant foraminal stenosis at this level. There are only minimal degenerative ch anges in the facet joints. L5-S1: At this level there is again noted anterolisthesis of L5 upon S1 which is due to advanced face t arthropathy and there also appears to be pars defects at this level, as also evident on prior abdom inal CT scan of the femora 2019. 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 There is n o prominent central canal stenosis but there is severe bilateral foraminal stenosis at this level aga in noted. The exiting nerve roots bilaterally are significantly impinged between the overlying L5 pe dicles and the subjacent annular bulging. Foraminal stenosis is also contributed to by the advanced facet arthropathy. Soft tissues: Right kidney benign cyst again noted. IMPRESSION: 1. Findings are similar to prior MRI scan of 08/30/2020, with findings predominately at L4-5 and L5-S 1 levels as described above. The size of the disc herniation L4-5 has not decreased. 2. There is severe bilateral foraminal stenosis at L5-S1 level again noted with severe impingement of the exiting nerve roots bilaterally at this level, perhaps slightly more so on the right side but ne vertheless severe bilaterally. DATA REPOSITORY:
== END ==
PROVIDERS: PCP Nurse Practitioner Adult Health; Visit Provider Family Medicine
DX: M48.07 Spinal stenosis, lumbosacral region (principal)
CPT/HCPCS: 72148

== ENCOUNTER 2023-12-23 04:04 | Outpatient (CLI) | payer MEDICARE, SELFPAY ==
[2023-12-23 10:28] LABS: Anion Gap 11.2 mmol/L (3-11); BUN 32 mg/dL (7-18); CO2 24.8 mmol/L (21.0-32.0); CREATININE 2.1 mg/dL (0.70-1.30); Calcium 8.7 mg/dL (8.5-10.1); Chloride 108 mmol/L (98-107); Estimated GFR 31.82 (mL/min/1.73m2); Glucose 145 mg/dL (74-106); Potassium 4.3 mmol/L (3.5-5.1); Sodium 144 mmol/L (136-145); Uric Acid 6.2 mg/dL (3.5-7.2)
== END 2023-12-23 04:05 | disposition home or self-care (01) ==
LOC: LBO 04:04
PROVIDERS: PCP Nurse Practitioner Adult Health; Visit Provider Nurse Practitioner Adult Health
DX: E11.22 Type 2 diabetes mellitus with diabetic chronic kidney disease (principal); I10 Essential (primary) hypertension; M10.9 Gout, unspecified
CPT/HCPCS: 36415; 80048; 84550

== ENCOUNTER → 2024-01-21 12:37 | Outpatient (BNVA) | payer MEDICARE, SELFPAY | PROVIDERS: PCP Nurse Practitioner Adult Health; Referring Provider Nurse Practitioner Adult Health; Visit Provider Psychiatry & Neurology Neurology | DX: H49.22 Sixth [abducent] nerve palsy, left eye (principal) | CPT/HCPCS: 36415; 85652; 99215; 86140; 86618 ==

== ENCOUNTER 2024-01-21 15:01 | Outpatient (CLI) | payer MEDICARE, SELFPAY ==
[2024-01-21 14:17] LABS: ESR 4 mm/hr (0-20)
[2024-01-21 16:34] LABS: C-Reactive Protein < 0.50 mg/dL (<or=0.5)
[2024-01-22 10:06] LABS: Lyme Ab w Rflx to Lyme Confirm Negative (Negative)
== END 2024-01-21 15:02 | disposition home or self-care (01) ==
LOC: LBO 15:02
PROVIDERS: PCP Nurse Practitioner Adult Health; Visit Provider Psychiatry & Neurology Neurology
DX: H49.22 Sixth [abducent] nerve palsy, left eye (principal)
CPT/HCPCS: 36415; 85652; 86140; 86618

== ENCOUNTER 2024-03-10 10:50 | Outpatient (CLI) | payer MEDICARE, SELFPAY ==
[2024-03-10 11:19] LABS: Anion Gap 10.1 mmol/L (3-11); BUN 45 mg/dL (7-18); CO2 25.9 mmol/L (21.0-32.0); CREATININE 2.4 mg/dL (0.70-1.30); Calcium 8.5 mg/dL (8.5-10.1); Chloride 107 mmol/L (98-107); Estimated GFR 27.11 (mL/min/1.73m2); Glucose 238 mg/dL (74-106); Potassium 4.3 mmol/L (3.5-5.1); Sodium 143 mmol/L (136-145)
[2024-03-10 11:51] LABS: Hemoglobin A1C 7.3 % (<5.7)
== END 2024-03-10 10:51 | disposition home or self-care (01) ==
LOC: LBO 10:57
PROVIDERS: PCP Nurse Practitioner Adult Health; Visit Provider Nurse Practitioner Adult Health
DX: I10 Essential (primary) hypertension (principal); E11.3313 Type 2 diabetes mellitus with moderate nonproliferative diabetic retinopathy with macular edema, bilateral
CPT/HCPCS: 36415; 80048; 83036; 85025

== ENCOUNTER 2024-03-14 14:33 | Outpatient (REF) | payer MEDICARE, SELFPAY ==
[2024-03-14 15:49] LABS: HCT 41.4 % (40.0-50.0); HGB 13.4 g/dL (13.5-17.5); MCH 28.4 pg (27.0-33.0); MCHC 32.4 % (32.0-36.0); MCV 88 fL (80-95); MPV 10.6 fL (8.0-11.0); Platelet Count 220 10^3/uL (130-400); RBC 4.72 10^6/uL (4.36-5.78); RDW 12.8 % (11.8-14.1); RDW-SD 41.1 fL; WBC 6.37 10^3/uL (4.4-10.8)
== END 2024-03-14 14:34 | disposition home or self-care (01) ==
LOC: LBN 14:33
PROVIDERS: PCP Nurse Practitioner Adult Health; Visit Provider Nurse Practitioner Adult Health
DX: Z01.818 Encounter for other preprocedural examination (principal)
CPT/HCPCS: 85027

== ENCOUNTER → 2024-03-23 12:59 | Outpatient (BNVA) | payer MEDICARE, SELFPAY | PROVIDERS: PCP Nurse Practitioner Adult Health; Visit Provider Psychiatry & Neurology Neurology | DX: H49.22 Sixth [abducent] nerve palsy, left eye (principal) | CPT/HCPCS: 99212 ==

== ENCOUNTER 2024-06-29 12:32 | Outpatient (CLI) | payer MEDICARE, SELFPAY ==
[2024-06-29 11:53] LABS: ESR 19 mm/hr (0-20)
[2024-06-29 12:00] LABS: Abs Immature Grans 0.01 10^3/uL (0.0-0.06); Absolute Basophil Count 0.06 10^3/uL (0.0-0.2); Absolute Eosinophil Count 0.19 10^3/uL (0.0-0.7); Absolute Lymphocyte Count 1.12 10^3/uL (1.2-3.4); Absolute Monocyte Count 0.42 10^3/uL (0.1-0.8); Absolute Neutrophil Count 4.79 10^3/uL (1.2-6.7); Basophils % 0.9 %; Eosinophils % 2.9 %; HCT 35.3 % (40.0-50.0); HGB 11.4 g/dL (13.5-17.5); Immature Grans % 0.2 %; MCH 27.1 pg (27.0-33.0); MCHC 32.3 % (32.0-36.0); MCV 84 fL (80-95); MPV 9.5 fL (8.0-11.0); Monocytes % 6.4 %; Neutrophils % 72.6 %; Platelet Count 302 10^3/uL (130-400); RDW 14.8 % (11.8-14.1); RDW-SD 45.5 fL; WBC 6.59 10^3/uL (4.4-10.8)
== END 2024-06-29 12:33 | disposition home or self-care (01) ==
LOC: LBO 12:33
PROVIDERS: PCP Nurse Practitioner Adult Health; Visit Provider Nurse Practitioner Family
DX: Z98.1 Arthrodesis status (principal)
CPT/HCPCS: 36415; 85652; 85025; 86140

== ENCOUNTER 2024-09-05 02:11 | Outpatient (CLI) | payer MEDICARE, SELFPAY ==
[2024-09-05 08:16] LABS: Hemoglobin A1C 8.2 % (<5.7)
[2024-09-05 08:36] LABS: Anion Gap 8.8 mmol/L (3-11); BUN 41 mg/dL (7-18); CO2 25.2 mmol/L (21.0-32.0); CREATININE 2.2 mg/dL (0.70-1.30); Calcium 9.2 mg/dL (8.5-10.1); Calculated LDL 86 mg/dL (<100); Chloride 106 mmol/L (98-107); Cholesterol 169 mg/dL (<200); Estimated GFR 29.91 (mL/min/1.73m2); Glucose 144 mg/dL (74-106); HDL Cholesterol 48 mg/dL (40-60); Potassium 4.3 mmol/L (3.5-5.1); Sodium 140 mmol/L (136-145); Triglyceride 179 mg/dL (<150)
[2024-09-05 08:44] LABS: COMMENT (LAB VIEW ONLY) < 13.00 mg/dL
[2024-09-05 08:49] LABS: Uric Acid 6.2 mg/dL (3.5-7.2)
== END 2024-09-05 02:12 | disposition home or self-care (01) ==
LOC: LBO 02:11
PROVIDERS: PCP Nurse Practitioner Adult Health; Referring Provider Nurse Practitioner Adult Health; Visit Provider Nurse Practitioner Adult Health
DX: E11.3313 Type 2 diabetes mellitus with moderate nonproliferative diabetic retinopathy with macular edema, bilateral (principal); I10 Essential (primary) hypertension; E78.5 Hyperlipidemia, unspecified; E11.22 Type 2 diabetes mellitus with diabetic chronic kidney disease; N18.4 Chronic kidney disease, stage 4 (severe)
CPT/HCPCS: 36415; 80048; 80061; 82043; 82570; 83036; 84550

== ENCOUNTER 2025-03-25 22:43 | Observation (INO) | payer MEDICARE, SELFPAY ==
[2025-03-25] VITALS (9 sets, daily range): BP systolic 127–148; BP diastolic 54–63; PULSE 84–92; RESP 18–22; TEMP 37.9; O2SAT 95–98
--- NOTE | 2025-03-25 22:45 | RT.EKG_ITS ---
APPROVED REPORT Exam: Resting ECG Reason for Exam: pain Patient Location: E HR:87 bpm ECG Measurements Heart Rate 87 AXIS ID 200 P 67 QRSd 96 QRS 6 QT 357 T 56 QTc 430 Conclusion Sinus rhythm...normal P axis, V-rate 60- [address] segment or T wave abnormalities to suggest occlusive [place]
[2025-03-25 23:15] LABS: Abs Immature Grans 0.04 10^3/uL (0.0-0.06); Absolute Basophil Count 0.01 10^3/uL (0.0-0.2); Absolute Lymphocyte Count 0.37 10^3/uL (1.2-3.4); Absolute Monocyte Count 0.52 10^3/uL (0.1-0.8); Absolute Neutrophil Count 5.93 10^3/uL (1.2-6.7); Basophils % 0.1 %; HGB 10.8 g/dL (13.5-17.5); Immature Grans % 0.6 %; Lymphocytes % 5.4 %; MCH 28.3 pg (27.0-33.0); MCHC 32.7 % (32.0-36.0); MCV 87 fL (80-95); MPV 10.2 fL (8.0-11.0); Monocytes % 7.6 %; Neutrophils % 86.3 %; Platelet Count 185 10^3/uL (130-400); RBC 3.81 10^6/uL (4.36-5.78); RDW 13.2 % (11.8-14.1); RDW-SD 41.7 fL; WBC 6.87 10^3/uL (4.4-10.8)
[2025-03-25 23:19] LABS: BE (Venous) -4 mmol/L (-2-3); HCO3 (Venous) 21 mmol/L (23-28); O2 Sat (Venous) 85 %; TCO2 (Venous) 19 mmol/L (24-29); pCO2 (Venous) 34 mmHg (41-51); pO2 (Venous) 47 mmHg
[2025-03-25 23:23] LABS: Bilirubin Negative (Negative); Blood Moderate (Negative); Clarity Clear (Clear); Glucose >=1000 mg/dL (Negative); Ketones Trace mg/dL (Negative); Leukocyte Esterase Negative (Negative); Nitrite Negative (Negative); Specific Gravity 1.015 (1.005-1.025); Urobilinogen 0.2 mg/dL (Up to 0.2); pH 6.5 (5-8)
[2025-03-25] MEDS: cefTRIAXone 2 GM/50 ML BAG IVPB (23:23)
[2025-03-25] MEDS: Normal Saline 1,000 ML 1000 ML IV (23:23)
[2025-03-25 23:32] LABS: Bacteria Rare HPF (Negative); C & S Indicated? Yes; Casts 0-2 Hyaline LPF (Negative); Crystals Negative HPF (Negative); Epithelial Cells Negative HPF (Negative); Mucus Trace (Negative)
[2025-03-25 23:32] LABS: ALT 22 U/L (16-63); AST 18 U/L (15-37); Albumin 2.8 g/dL (3.4-5.0); Alkaline Phosphatase 112 U/L (46-116); Anion Gap 14.2 mmol/L (3-11); BUN 44 mg/dL (7-18); Bilirubin, Total 0.5 mg/dL (0.2-1.0); CO2 20.8 mmol/L (21.0-32.0); Calcium 8.1 mg/dL (8.5-10.1); Chloride 102 mmol/L (98-107); PTT Activated 28.8 sec (20.6-30.2); Potassium 4.3 mmol/L (3.5-5.1); Prothrombin Time 10.2 sec (9.1-11.1); Sodium 137 mmol/L (136-145); Total Protein 6.3 g/dL (6.4-8.2)
[2025-03-25 23:40] LABS: Troponin I 49 ng/L (<or=76)
[2025-03-25 23:42] LABS: CREATININE 2.8 mg/dL (0.70-1.30); Estimated GFR 22.39 (mL/min/1.73m2); Glucose 169 mg/dL (74-106)
[2025-03-25 23:45] LABS: Procalcitonin 0.67 ng/mL
[2025-03-26] VITALS (10 sets, daily range): BP systolic 116–149; BP diastolic 55–96; PULSE 68–88; RESP 16–17; TEMP 36.2–38; O2SAT 94–98
--- NOTE | 2025-03-26 00:32 | ED.GENADUL_ITS ---
Discharge Plan Disposition Patient Disposition: Admit to [facility] Condition: Serious Discharge Details Clinical Impression: Acute UTI, Pre-syncope, Inability to walk, Cranial nerve palsy Primary Care Provider: Rasheeda Melchor ED Provider: Lucita Luis Home Meds and New Rx's Prescriptions: No Action (DME) blood-glucose meter Misc See Rx Instructions .MEDSUPPLY Qty: 1 0RF Rx Instructions: As directed to check daily blood glucose. No insulin. Dispense covered brand. Dx: E11.9 to maintain HbA1c less than 7%. (DME) Blood Glucose Test Strip See Rx Instructions .MEDSUPPLY Qty: 100 3RF Rx Instructions: As directed to check daily blood glucose. No insulin. Dispense covered brand. Dx: E11.9 to maintain HbA1c less than 7%. (DME) lancets Misc See Rx Instructions .MEDSUPPLY Qty: 100 3RF Rx Instructions: As directed to check daily blood glucose. No insulin. Dispense covered brand. Dx: E11.9 to maintain HbA1c less than 7%. allopurinol 100 mg tablet 50 mg PO .TWICE PER WEEK MDD 100mg/24h Qty: 30 3RF Rx Instructions: STOP PROBENACID and start Allopurinol for gout prevention (10/14/2023) multivitamin Tablet 1 tab PO DAILY (DME) FreeStyle [place] 2 [place] Misc See Rx Instructions .Route Qty: 1 0RF Rx Instructions: As directed; to keep HbA1c less than 7.5%; Dx: E11.65 (DME) FreeStyle [place] 2 Sensor Kit See Rx Instructions .Route Qty: 6 3RF Rx Instructions: TO MONITOR BLOOD GLUCOSE DAILY FOR GOAL A1C LESS THEN 7.5,CHANGE SENSOR EVERY 14 DAYS clopidogrel 75 mg tablet See Rx Instructions .ROUTE .COMPLEX Qty: 90 3RF Dose Instruction: Take 1 tablet by mouth once daily Rx Instructions: Take 1 tablet by mouth once daily amlodipine 5 mg tablet 5 mg PO DAILY Qty: 90 0RF Rx Instructions: Blood pressure (new 10/14/2023; STOP HCTZ) Jardiance 10 mg tablet 10 mg PO QAM Qty: 90 3RF mupirocin 2 % ointment 1 applic topical BID-TID Qty: 15 0RF Rx Instructions: May substitute with cream if less expensive; apply thin layer until area/lesion resolved glipizide 5 mg tablet 5 mg PO DAILY Qty: 90 0RF Rx Instructions: Dose increase 01/04/24 lisinopril 40 mg tablet See Rx Instructions .ROUTE .COMPLEX Qty: 90 3RF Dose Instruction: TAKE 1 TABLET BY MOUTH ONCE DAILY TO LOWER BLOOD PRESSURE UNDER 130/80 Rx Instructions: TAKE 1 TABLET BY MOUTH ONCE DAILY TO LOWER BLOOD PRESSURE UNDER 130/80 atorvastatin 80 mg tablet See Rx Instructions .ROUTE .COMPLEX Qty: 90 3RF Dose Instruction: TAKE 1 TABLET BY MOUTH AT BEDTIME Rx Instructions: TAKE 1 TABLET BY MOUTH AT BEDTIME HPI General Mode of arrival: EMS . Date/Time Provider Initiated Documentation: 03/25/25 22:43 . Limitations to Documentation: no limitations . Information obtained by: patient, family and EMS . HPI Narrative: 79yo M POD#3 from Moh's surgery presenting via EMS. History from EMS with purulent drainage from surgical site, febrile, tachycardiac to high 90's. Given tylenol and 1L IVF prior to arrival. On arrival patient reports calling EMS for a fall; was trying to get up and felt lightt headed and like his legs were too weak to support him, fell to his knees. No head strike. No knee pain or pain elsewhere. No vertigo. For the past several days he has felt generally unwell, chills. Urinary frequency and urgency, no dysuria or hematuria. No chest pain, shortness of breath, syncope, N/V/D, abdominal pain, URI symptoms, or other concerns. 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 Visual symptoms are identical to his prior episodes. Related Data Home Medications ?Medication ?Instructions ?Recorded ?Confirmed allopurinol 100 mg tablet 50 mg (1/2 x 100 mg) PO .TWI CE PER 01/04/24 03/13/25 WEEK #30 tabs blood sugar diagnostic (Blood #100 ea 03/14/24 5 Glucose Test strips) blood-glucose meter #1 ea 03/14/24 03/13/25 lancets #100 ea 03/14/24 03/13/25 flash glucose scanning reader #1 ea 03/15/24 03/13/25 (FreeStyle [place] 2 [place]) flash glucose sensor (FreeStyle #6 ea 03/15/24 5 Germain 2 Sensor kit) clopidogrel 75 mg tablet See Rx Instructions .Route 1 11/12/23 03/13/25 .COMPLEX #90 tabs amlodipine 5 mg tablet 5 mg PO DAILY #90 tabs 12/0603/13/25 empagliflozin 10 mg tablet 10 mg PO QAM #90 tabs 01/0103/13/25 (Jardiance) mupirocin 2 % topical ointment 1 applic topical BID-TI D #15 grams 01/05/25 03/13/25 glipizide 5 mg tablet 5 mg PO DAILY #90 tabs 02/0203/13/25 multivitamin 1 tab PO DAILY 03/13/2512/06 atorvastatin 80 mg tablet See Rx Instructions .Route 0 03/15/25 .COMPLEX #90 tabs lisinopril 40 mg tablet See Rx Instructions .Route 0 03/15/25 .COMPLEX #90 tabs Previous Rx's ?Medication ?Instructions ?Recorded allopurinol 100 mg tablet 50 mg (1/2 x 100 mg) PO .TWI CE PER 01/04/24 WEEK #30 tabs blood sugar diagnostic (Blood #100 ea 03/14/24 Glucose Test strips) blood-glucose meter #1 ea 03/14/24 lancets #100 ea 03/14/24 flash glucose scanning reader #1 ea 03/15/24 (FreeStyle [place] 2 [place]) flash glucose sensor (FreeStyle #6 ea 03/15/24 Germain 2 Sensor kit) clopidogrel 75 mg tablet See Rx Instructions .Route 1 11/12/23 .COMPLEX #90 tabs amlodipine 5 mg tablet 5 mg PO DAILY #90 tabs 12/06 empagliflozin 10 mg tablet 10 mg PO QAM #90 tabs 01/01 (Jardiance) mupirocin 2 % topical ointment 1 applic topical BID-TI D #15 grams 01/05/25 glipizide 5 mg tablet 5 mg PO DAILY #90 tabs 02/02 atorvastatin 80 mg tablet See Rx Instructions .Route 0 03/15/25 .COMPLEX #90 tabs lisinopril 40 mg tablet See Rx Instructions .Route 0 03/15/25 .COMPLEX #90 tabs Allergies Allergy/AdvReac Type Severity Reaction Status Date / Time codeine AdvReac Intermediate GI Verified 03/13/25 13:29 glimepiride AdvReac Intermediate dizzy on Verified 03/13/25 13:29 1mg General Stated Complaint: GenMedical BRII: 3 Review of Systems Narrative: see HPI Exam Narrative Exam Narrative: General: Alert, in no acute distress. Head: Normocephalic. Surgical incision to left cheek, sutures in place, scant serous discharge. No purulence, warmth, erythema, or tenderness. Neck: Trachea midline, ?Neck supple. ENT: ?MMM.? Cardiac: ?RRR, no murmurs appreciated Resp: No respiratory distress. CTAB. Abd: ?Soft, non-distended, nontender : ?No suprapubic tenderness. No CVA tenderness. Extremities: ?No deformities.? No peripheral edema. Neuro: ? GCS 15.? PERRL.? Fluent speech, no dysarthria. Motor- 5/5 strength symmetric bilateral upper and lower extremities including shoulder abductors/adductors, elbow flexors/extensors, wrist flexors/extensors, finger abductors/adductors, hipflexors/extensors, knee flexors/extensors, ankle dorsiflexors and planter flexors. Sensation- ?Intact to light touch and symmetric multiple dermatomes including upper and lower extremities Coordination- No dysmetria on finger to nose Reflexes- 2/4 achilles & patellar, no clonus Gait/station: ?Unable to ambulate CRANIAL NERVES: II: Pupils equal and reactive III, IV, : Right eye with impaired abduction. No nystagmus. V: normal sensation in V1, V2, and V3 segments bilaterally VII: no asymmetry, no nasolabial fold flattening VIII: normal hearing to speech IX, X: normal palatal elevation, no uvular deviation XI: 5/5 head turn and 5/5 shoulder shrug bilaterally XII: midline tongue protrusion Course Vital Signs Vital signs: Vital Signs Temperature 37.9 C H 03/25/25 22:44 Pulse 92 H 03/25/25 22:44 Respiratory Rate 22 03/25/25 22:44 Blood Pressure 148/54 H 03/25/25 22:44 Temperature 37.9 C H 03/25/25 22:54 Temperature Source Oral 03/25/25 22:54 Pulse 85 03/25/25 23:12 Pulse 85 03/25/25 23:12 Respiratory Rate 18 03/25/25 23:12 Respiratory Effort Normal, Non-Labored 03/25/25 22:54 Respiratory Depth Normal 03/25/25 22:54 Respiratory Pattern Normal 03/25/25 22:54 Blood Pressure 127/54 L 03/25/25 23:12 Blood Pressure Mean 81 03/25/25 23:12 Blood Pressure Position Supine 03/25/25 22:54 Pulse Oximetry 96 03/25/25 23:12 Oxygen Delivery Method Room Air 03/25/25 22:54 Oxygen Flow Rate 0 03/25/25 22:44 Pain Level 4 03/25/25 22:54 Lab/Test Results Lab/Test Results: 03/25/25 23:28 Face - Left Wound Culture - Pending 03/25/25 23:28 Face - Left Gram Stain - Final 03/25/25 23:34 Head - Left Anaerobic Culture - Pending 03/25/25 23:00 Urine - Reflex from Ua Urine Culture - Pending 03/25/25 23:20 Blood Blood Culture - Pending 03/25/25 23:07 Blood Blood Culture - Pending Laboratory Tests Range/Units 03/25/25 03/25/25 23:00 23:07 WBC (4.4-10.8) 10^3/uL 6.87 RBC (4.36-5.78) 10^6/uL 3.81 L Hgb (13.5-17.5) g/dL 10.8 L Hct (40.0-50.0) % 33.0 L MCV (80-95) fL 87 MCH (27.0-33.0) pg 28.3 MCHC (32.0-36.0) % 32.7 RDW (11.8-14.1) % 13.2 Plt Count (130-400) 10^3/uL 185 MPV (8.0-11.0) fL 10.2 Immature Gran % % 0.6 Neutrophils % % 86.3 Lymphocytes % % 5.4 Monocytes % % 7.6 Eosinophils % % 0.0 Basophils % % 0.1 Nucleated RBC % (0.0-0.3) % 0.0 Absolute Neutrophils (1.2-6.7) 10^3/uL 5.93 Absolute Lymphocytes (1.2-3.4) 10^3/uL 0.37 L Absolute Monocytes (0.1-0.8) 10^3/uL 0.52 Absolute Eosinophils (0.0-0.7) 10^3/uL 0.00 Absolute Basophils (0.0-0.2) 10^3/uL 0.01 PT (9.1-11.1) sec 10.2 INR (0.9-1.1) 1.0 APTT (20.6-30.2) sec 28.8 VBG pH (7.31-7.41) 7.40 VBG pCO2 (41-51) mmHg 34 L VBG pO2 mmHg 47 VBG HCO3 (23-28) mmol/L 21 L VBG Total CO2 (24-29) mmol/L 19 L VBG O2 Saturation % 85 VBG Base Excess (-2-3) mmol/L -4 L Sodium (136-145) mmol/L 137 Potassium (3.5-5.1) mmol/L 4.3 Chloride (98-107) mmol/L 102 Carbon Dioxide (21.0-32.0) mmol/L 20.8 L Anion Gap (3-11) mmol/L 14.2 H BUN (7-18) mg/dL 44 H Creatinine (0.70-1.30) mg/dL 2.8 H Est GFR (CKD-EPI 2020) (mL/min/1.73m2) 22.39 Glucose (74-106) mg/dL 169 H Calcium (8.5-10.1) mg/dL 8.1 L Total Bilirubin (0.2-1.0) mg/dL 0.5 AST (15-37) U/L 18 ALT (16-63) U/L 22 Alkaline Phosphatase (46-116) U/L 112 Troponin I (<or=76) ng/L 49 Total Protein (6.4-8.2) g/dL 6.3 L Albumin (3.4-5.0) g/dL 2.8 L Procalcitonin ng/mL 0.67 Urine Color (Yellow) Yellow Urine Clarity (Clear) Clear Urine pH (5-8) 6.5 Ur Specific [place] (1.005-1.025) 1.015 Urine Protein (Neg-Trace) mg/dL >=300 H Urine Ketones (Negative) mg/dL Trace H Urine Blood (Negative) Moderate H Urine Nitrite (Negative) Negative Urine Bilirubin (Negative) Negative Urine Urobilinogen (Up to 0.2) mg/dL 0.2 Ur Leukocyte Esterase (Negative) Negative Urine RBC (0-2) HPF 3-5 H Urine WBC (0-5) HPF 10-20 H Ur Epithelial Cells (Negative) HPF Negative Urine Crystals (Negative) HPF Negative Urine Bacteria (Negative) HPF Rare Urine Casts (Negative) LPF 0-2 Hyaline Urine Mucus (Negative) Trace Ur Culture Indicated? Yes Urine Glucose (Negative) mg/dL >=1000 H Medical Decision Making 79yo M POD#3 from Moh's surgery presenting via EMS. Initial history from EMS suggestive of sepsis; purulent drainage from surgical site, febrile and he was given tylenol and 1L IVF prior to arrival. Patient provides somewhat different history; several days of fever & generalized weakness with urinary symptoms, called EMS after near-syncope and fall. Slightly tachycardiac to 92 on arrival, vital signs otherwise reassuring. Sepsis possible, will continue IVF resus with additional 1L bolus as well as broad spectrum abx though he is non-toxic on exam. Surgical site does not appear to be infected. Of note, he also reports hx of 6th cranial nerve palsy with intermittent symptoms for the past three years and currently double vision since which is identical to his prior episodes. Exam consistent with this, otherwise normal neurologic exam. I am not concerned for acute stroke. ACS or arrhythmia less likely. -EKG NSR, appropriate intervals, no ST segment or T wave abnormalities to suggest occlusive AR. -Labs reviewed as below, CBC with no leukocytosis, mild anemia at 10.8 (most recent prior 11.4 sept of last year), CMP with Cr of 2.8 elevated from baseline which appears to be around 2.2 as of last year and no actionable abnormalities, VBG reassuring with no acidosis, lactate normal, procal borderline at 0.6, coags normal, trop normal. UA suggestive of infection. Blood and wound culture sent. With + UA and reassuring wound exam, no indication indication for MRSA coverage; zyvox dced. Pt recieved one dose of IV ceftriaxone in the emergency department. On reassessment patient remains non-toxic appearing. Trial ambulation and patient with marked lightheadness on standing, unable to ambulate. Orthostatic vital signs without orthostasis. As he remains symptomatic and unable to ambulate, warrants admission for observation. Discussed with [facility] hospitalist Dr. Beltre; pt accepted to medicine service for further workup and management and awaiting transfer to the floor. [facility] All Active Problems (Updated 03/26/25 @ 01:19 by Lucita Luis MD) Cranial nerve palsy (Acute) Inability to walk (Acute) Pre-syncope (Acute) Acute UTI (Acute) Ambulatory dysfunction (Acute) UTI (urinary tract infection) (Acute) Skin lesion of cheek (Acute) Spondylosis of lumbosacral spine with radiculopathy (Acute) [facility] 03/01/24 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) 07/2022 & 01/2024 Spondylolisthesis, lumbar region (Acute) [facility] 12/15/23 Monocular esotropia, left eye (Acute) Presence of intraocular lens (Acute) Type 2 diabetes mellitus with moderate nonproliferative diabetic retinopathy with macular edema, bilateral (Acute) CKD stage 4 due to type 2 diabetes mellitus (Acute ~09/2023) Macular edema of right eye (Acute ~08/2022) [facility] Adenomatous polyp of colon (Acute 06/21/05) colon 06/16 & 07/2008 & 05/14/15(ADENOMAS BOTH TIMES) BMI 35.0-35.9,adult (Acute 12/07/05) BMI 35; GOAL 194 LB (10% DROP) Essential hypertension (Chronic 03/26/08) Goal <130/80 Gout (Chronic 10/11/87) probenecid Rx-->10/2023 changed to Allopurinol due to CKD Hyperlipidemia (Chronic 10/11/94) goal LDL<100 (diabetes) Tobacco dependence syndrome (Chronic 12/07/05) chew Type II diabetes mellitus, uncontrolled (Chronic) 07/2002; initial BS 400, initially on insulin in hospital, then metformin at home; Mild DM retinopathy right, none left 06/17/16 Diabetic retinopathy (Chronic) [facility] 09/05/2019 08/14/22--moderate non-proliferative [facility] Medical History CKD (chronic kidney disease) stage 3, GFR 30-59 ml/min Age-related nuclear cataract of right eye (05/28/17) Cortical Age-Related Cataract of Right Eye. Age-related nuclear cataract of left eye (05/13/17) Cortical age-related cataract of left eye Cardiac murmur (~09/2022) Normal ECHO Lumbar radiculopathy [facility] 10/18/20 Lumbar Epidural 12/13/20 Caudal epidural injection DJD (degenerative joint disease), lumbosacral Foraminal stenosis of lumbosacral region Herniation of intervertebral disc between L4 and L5 Abnormal prominence of iliac crest CT; Not seen on MRI. Lipoma of back Acute Lyme disease with neurological disease RX Doxy 06/23/2019 Binocular vision disorder with diplopia Tess; referred to Ophthal 06/16/2019 Retinal hemorrhage of both eyes 06/15/19 Asad Pulido OD--Neuro Lyme Kidney stone (09/11/02) 09/2002 Surgical History S/P lumbar fusion (~04/05/24) Fusion spine posterior lumbar, PLIF L5-S1, Lumbar cages and screws excision L4-5 disc left--[facility] 04/05/24 Hx of tooth extraction Hx of colonoscopy (~07/2022) Hx of lumbar discectomy (~03/2021) L5-S1 [place] Cataract right (08/13/17) Family History Mother , Alzheimers at age 72. Alzheimer disease Brother Diabetes Stroke Social History Smoking/Tobacco Use Status: Current every day Tobacco Type: smokeless tobacco Smokeless tobacco user: chewing tobacco Smoking risk assessment performed?: Yes Alcohol Intake: current Alcohol Intake frequency: a few times a month Alcohol type: beer Drug use: Never Substance use type: does not use Details: chewed tobacco: t-1 Household members: none and other Details: Daughter, her and self, after 46 yrs of marriage, 08/29 Housing: house Communication Needs: Corrective Lenses Do you need help understanding health information?: Never Pets and animals: Yes Pets and animals: cat(s) What is your relationship status?: Panel score (0-1 are the most socially isolated patients): 0 What type of physical activity do you participate in: other Details: lawn mowing, weed waching, fishing Frequency: 3-4 times per week Do you feel safe at home: Yes Do you feel safe in your relationship?: Yes
[2025-03-26 00:49] LABS: Lactate 0.6 mmol/L (<or=2.0)
--- NOTE | 2025-03-26 01:01 | HPE_ITS ---
Date of service: 03/26/25 Time of Service: 01:02 Assessment and Plan Assessment and plan (1) Ambulatory dysfunction: Status: Acute Assessment and plan: - Likely secondary to UTI - Patient given total 2 L IV fluids without improvement - Orthostasis negative - Will reassess ambulatory ability again in the morning (2) UTI (urinary tract infection): Status: Acute Assessment and plan: - Question of urinary tract infection with elevated WBCs, but negative nitrates and leuks with few bacteria - Will start on ceftriaxone in the emergency department, will continue (3) Type 2 diabetes mellitus with moderate nonproliferative diabetic retinopathy with macular edema, bilateral: Status: Acute Assessment and plan: - Continue home Jardiance (4) Essential hypertension: Status: Chronic Assessment and plan: - Continue home amlodipine and lisinopril (5) Hyperlipidemia: Status: Chronic Assessment and plan: - Continue home statin History of Present Illness History of Present Illness Chief Complaint: infection Narrative: 79-year-old gentleman with a past medical history of NIDDM with CKD stage IV, hypertension, and recent Mohs surgery who presents emergency department after a fall and concerns for infection. Patient states that over the last few days he has had chills and is felt generally unwell. However, what prompted him to call EMS was that he attempted to stand up and felt weak in the knees causing him to fall. He did not hit his head, lose consciousness, denies any headache, lightheadedness, dizziness, chest pain, nausea vomiting or diarrhea. He also denies any cough or dysuria. In the emergency department the patient was noted as having normal vital signs, though reportedly had temperature of 37.9 ?C via EMS, who also gave the patient Tylenol and 1 L of IV fluids. Patient's CBC and CMP were unremarkable the exception of an elevated creatinine of 2.8 (the last baseline was 2.1 patient does have a known history of CKD stage IV). UA was highly suspicious for infection and and patient was given ceftriaxone. However, patient attempted to ambulate and had significant lightheadedness and dizziness and was unable to do so safely despite an additional liter of IV fluids and having negative orthostatic blood pressures. At which time emergency room physician paged hospitalist for admission for patient for observation with a urinary tract infection and ambulatory dysfunction. Review of Systems All systems reviewed & are unremarkable except as noted in HPI and below PFSH All Active Problems (Updated 03/26/25 @ 01:19 by Lucita Luis MD) Cranial nerve palsy (Acute) Inability to walk (Acute) Pre-syncope (Acute) Acute UTI (Acute) Ambulatory dysfunction (Acute) UTI (urinary tract infection) (Acute) Skin lesion of cheek (Acute) Spondylosis of lumbosacral spine with radiculopathy (Acute) [facility]24 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) 07/2022 & 01/2024 Spondylolisthesis, lumbar region (Acute) [facility] 12/15/23 Monocular esotropia, left eye (Acute) Presence of intraocular lens (Acute) Type 2 diabetes mellitus with moderate nonproliferative diabetic retinopathy with macular edema, bilateral (Acute) CKD stage 4 due to type 2 diabetes mellitus (Acute ~09/2023) Macular edema of right eye (Acute ~08/2022) [facility] Adenomatous polyp of colon (Acute 06/21/05) colon 06/16 & 07/2008 & 05/14/15(ADENOMAS BOTH TIMES) BMI 35.0-35.9,adult (Acute 12/07/05) BMI 35; GOAL 194 LB (10% DROP) Essential hypertension (Chronic 03/26/08) Goal <130/80 Gout (Chronic 10/11/87) probenecid Rx-->10/2023 changed to Allopurinol due to CKD Hyperlipidemia (Chronic 10/11/94) goal LDL<100 (diabetes) Tobacco dependence syndrome (Chronic 12/07/05) chew Type II diabetes mellitus, uncontrolled (Chronic) 07/2002; initial BS 400, initially on insulin in hospital, then metformin at home; Mild DM retinopathy right, none left 06/17/16 Diabetic retinopathy (Chronic) [facility] 09/05[facility]2019 08/14/22--moderate non-proliferative [facility] Medical History CKD (chronic kidney disease) stage 3, GFR 30-59 ml/min Age-related nuclear cataract of right eye (05/28/17) Cortical Age-Related Cataract of Right Eye. Age-related nuclear cataract of left eye (05/13/17) Cortical age-related cataract of left eye Cardiac murmur (~09/2022) Normal ECHO Lumbar radiculopathy [facility] 10/18/20 Lumbar Epidural 12/13/20 Caudal epidural injection DJD (degenerative joint disease), lumbosacral Foraminal stenosis of lumbosacral region Herniation of intervertebral disc between L4 and L5 Abnormal prominence of iliac crest CT; Not seen on MRI. Lipoma of back Acute Lyme disease with neurological disease RX Doxy 06/23/2019 Binocular vision disorder with diplopia Tess; referred to Ophthal 06/16/2019 Retinal hemorrhage of both eyes 06/15/19 Asad Tess OD--Neuro Lyme Kidney stone (09/11/02) 09/2002 Surgical History S/P lumbar fusion (~04/05/24) Fusion spine posterior lumbar, PLIF L5-S1, Lumbar cages and screws excision L4-5 disc left--[facility] 04/05/24 Hx of tooth extraction Hx of colonoscopy (~07/2022) Hx of lumbar discectomy (~03/2021) L5-S1 [place] Cataract right (08/13/17) Family History Mother , Alzheimers at age 72. Alzheimer disease Brother Diabetes Stroke Social History Smoking/Tobacco Use Status: Current every day Tobacco Type: smokeless tobacco Smokeless tobacco user: chewing tobacco Smoking risk assessment performed?: Yes Alcohol Intake: current Alcohol Intake frequency: a few times a month Alcohol type: beer Drug use: Never Substance use type: does not use Details: chewed tobacco: t-1 Household members: none and other Details: Daughter, her and self, after 46 yrs of marriage, 08/29 Housing: house Communication Needs: Corrective Lenses Do you need help understanding health information?: Never Pets and animals: Yes Pets and animals: cat(s) What is your relationship status?: Panel score (0-1 are the most socially isolated patients): 0 What type of physical activity do you participate in: other Details: lawn mowing, weed waching, fishing Frequency: 3-4 times per week Do you feel safe at home: Yes Do you feel safe in your relationship?: Yes Meds Allergies and Home Medications Allergies Allergy/AdvReac Type Severity Reaction Status Date / Time codeine AdvReac Intermediate GI Verified 03/13/25 13:29 glimepiride AdvReac Intermediate dizzy on Verified 03/13/25 13:29 1mg Home Medications ?Medication ?Instructions ?Recorded ?Confirmed ?Type allopurinol 100 mg tablet 50 mg (1/2 x 100 mg) PO .TWI CE PER 01/04/24 03/26/25 Rx WEEK #30 tabs flash glucose scanning reader #1 ea 03/15/24 03/26/25 Rx (FreeStyle [place] 2 [place]) flash glucose sensor (FreeStyle #6 ea 03/15/24 5 Rx Germain 2 Sensor kit) clopidogrel 75 mg tablet See Rx Instructions .Route 1 11/12/23 03/26/25 Rx .COMPLEX #90 tabs amlodipine 5 mg tablet 5 mg PO DAILY #90 tabs 12/0603/26/25 Rx empagliflozin 10 mg tablet 10 mg PO QAM #90 tabs 01/0103/26/25 Rx (Jardiance) mupirocin 2 % topical ointment 1 applic topical BID-TI D #15 grams 01/05/25 03/26/25 Rx glipizide 5 mg tablet 5 mg PO DAILY #90 tabs 02/0203/13/25 Rx multivitamin 1 tab PO DAILY 03/13/2503/12 History atorvastatin 80 mg tablet See Rx Instructions .Route 0 03/15/25 03/26/25 Rx .COMPLEX #90 tabs lisinopril 40 mg tablet See Rx Instructions .Route 0 03/15/25 03/26/25 Rx .COMPLEX #90 tabs glipizide 5 mg tablet 5 mg PO DAILY 03/26/2503/26 History Exam Narrative Exam Narrative: Well-appearing older gentleman laying in bed in no acute distress, ANO x 4, heart regular rhythm, lungs, auscultation bilaterally, abdomen soft, nontender, nondistended Results Labs 03/25/25 23:07 03/25/25 23:07 Labs: Laboratory Results - last 24 hr 03/25/25 03/25/25 03/26/25 23:00 23:07 00:45 WBC 6.87 RBC 3.81 L Hgb 10.8 L Hct 33.0 L MCV 87 MCH 28.3 MCHC 32.7 RDW 13.2 Plt Count 185 MPV 10.2 Immature Gran % 0.6 Neutrophils % 86.3 Lymphocytes % 5.4 Monocytes % 7.6 Eosinophils % 0.0 Basophils % 0.1 Nucleated RBC % 0.0 Absolute Neutrophils 5.93 Absolute Lymphocytes 0.37 L Absolute Monocytes 0.52 Absolute Eosinophils 0.00 Absolute Basophils 0.01 PT 10.2 INR 1.0 APTT 28.8 VBG pH 7.40 VBG pCO2 34 L VBG pO2 47 VBG HCO3 21 L VBG Total CO2 19 L VBG O2 Saturation 85 VBG Base Excess -4 L VBG Lactate 0.6 Sodium 137 Potassium 4.3 Chloride 102 Carbon Dioxide 20.8 L Anion Gap 14.2 H BUN 44 H Creatinine 2.8 H Est GFR (CKD-EPI 2020) 22.39 Glucose 169 H Calcium 8.1 L Total Bilirubin 0.5 AST 18 ALT 22 Alkaline Phosphatase 112 Troponin I 49 Total Protein 6.3 L Albumin 2.8 L Procalcitonin 0.67 Urine Color Yellow Urine Clarity Clear Urine pH 6.5 Ur Specific [place] 1.015 Urine Protein >=300 H Urine Ketones Trace H Urine Blood Moderate H Urine Nitrite Negative Urine Bilirubin Negative Urine Urobilinogen 0.2 Ur Leukocyte Esterase Negative Urine RBC 3-5 H Urine WBC 10-20 H Ur Epithelial Cells Negative Urine Crystals Negative Urine Bacteria Rare Urine Casts 0-2 Hyaline Urine Mucus Trace Ur Culture Indicated? Yes Urine Glucose >=1000 H Last Vital Signs Temp 100.3 F H 03/25/25 22:54 Pulse 79 03/26/25 00:50 Resp 18 03/25/25 23:12 BP 131/59 L 03/26/25 00:50 Pulse Ox 96 03/25/25 23:12 Time Spent Time spent with Patient: >75 minutes Time was spent: preparing to see the patient(eg.review tests), obtaining and/or reviewing separately otained hiistory, ordering medications,tests, procedures, referring, communicating with other health respiratory care program director, indepentently interpreting results, counseling the patient and care coordination
[2025-03-26 01:08] LABS: Troponin I 58 ng/L (<or=76)
--- NOTE | 2025-03-26 01:27 | W.PC.ACHO ---
Registration Status: REG ER Primary Language: Preferred Language: Armenian ED Information & Data Chief Complaint GenMedical 03/26/25 00:37 Triage Note arrives via EMS from home, 03/25/25 22:44 [place] skin cancer [place] L [place] of [place] [facility] pus, fever and chills, increased urinary urgency, freq for the last 4 days. feeling as though he has to go but cannot go. got up out of bed this evening and felt dizzy and fell to the floor. denies LOC, denies Headstrike. was able to get up assistance from neighbor. denies CP, SOB, N/V/D. BGL 264. 1g Tylenol, 1L NS by EMS. 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 Retinal hemorrhage of both eyes Kidney stone (09/11/02) (Last Reviewed 03/13/25 @ 13:42 by Rasheeda Melchor NP) S/P lumbar fusion (~04/05/24) Hx of tooth extraction Hx of colonoscopy (~07/2022) Hx of lumbar discectomy (~03/2021) Cataract right (08/13/17) Most Recent Vital Signs Temperature 37.9 C H 03/25/25 22:54 Temperature Source Oral 03/25/25 22:54 Pulse 79 03/26/25 00:50 Pulse 85 03/25/25 23:12 Respiratory Rate 18 03/25/25 23:12 Respiratory Effort Normal, Non-Labored 03/25/25 22:54 Respiratory Depth Normal 03/25/25 22:54 Respiratory Pattern Normal 03/25/25 22:54 Blood Pressure 131/59 L 03/26/25 00:50 Blood Pressure Mean 81 03/25/25 23:12 Blood Pressure Position Supine 03/25/25 22:54 Pulse Oximetry 96 03/25/25 23:12 Oxygen Delivery Method Room Air 03/25/25 22:54 Oxygen Flow Rate 0 03/25/25 22:44 Pain Level 4 03/25/25 22:54 Allergies codeine Adverse Reaction (Intermediate, Verified 03/13/25 13:29) GI glimepiride Adverse Reaction (Intermediate, Verified 03/13/25 13:29) dizzy on 1mg Precautions Isolation Standard precaution 03/25/25 22:50 Active Medications Generic Name Dose Route Start Last Admin Trade Name Navid PRN Reason Stop Dose Admin Ceftriaxone Sodium/Dextrose 2 gm in 50 mls @ 100 mls/hr 03/25/25 23:00 03/26/25 00:05 Rocephin IVPB Infused Q24H RAMON Infusion IV IV Catheter Type [Left Peripheral IV Antecubital] IV Catheter Gauge [Left 18 Antecubital] Diagnostics 03/26/25 03/25/25 03/25/25 Range/Units 00:45 23:07 23:00 WBC 6.87 (4.4-10.8) 10^3/uL RBC 3.81 L (4.36-5.78) 10^6/uL Hgb 10.8 L (13.5-17.5) g/dL Hct 33.0 L (40.0-50.0) % MCV 87 (80-95) fL MCH 28.3 (27.0-33.0) pg MCHC 32.7 (32.0-36.0) % RDW 13.2 (11.8-14.1) % Plt Count 185 (130-400) 10^3/uL MPV 10.2 (8.0-11.0) fL Immature Gran % 0.6 % Neutrophils % 86.3 % Lymphocytes % 5.4 % Monocytes % 7.6 % Eosinophils % 0.0 % Basophils % 0.1 % Nucleated RBC % 0.0 (0.0-0.3) % Absolute Neutrophils 5.93 (1.2-6.7) 10^3/uL Absolute Lymphocytes 0.37 L (1.2-3.4) 10^3/uL Absolute Monocytes 0.52 (0.1-0.8) 10^3/uL Absolute Eosinophils 0.00 (0.0-0.7) 10^3/uL Absolute Basophils 0.01 (0.0-0.2) 10^3/uL PT 10.2 (9.1-11.1) sec INR 1.0 (0.9-1.1) APTT 28.8 (20.6-30.2) sec VBG pH 7.40 (7.31-7.41) VBG pCO2 34 L (41-51) mmHg VBG pO2 47 mmHg VBG HCO3 21 L (23-28) mmol/L VBG Total CO2 19 L (24-29) mmol/L VBG O2 Saturation 85 % VBG Base Excess -4 L (-2-3) mmol/L VBG Lactate 0.6 (<or=2.0) mmol/L Sodium 137 (136-145) mmol/L Potassium 4.3 (3.5-5.1) mmol/L Chloride 102 (98-107) mmol/L Carbon Dioxide 20.8 L (21.0-32.0) mmol/L Anion Gap 14.2 H (3-11) mmol/L BUN 44 H (7-18) mg/dL Creatinine 2.8 H (0.70-1.30) mg/dL Est GFR (CKD-EPI 2020) 22.39 (mL/min/1.73m2) Glucose 169 H (74-106) mg/dL Calcium 8.1 L (8.5-10.1) mg/dL Total Bilirubin 0.5 (0.2-1.0) mg/dL AST 18 (15-37) U/L ALT 22 (16-63) U/L Alkaline Phosphatase 112 (46-116) U/L Troponin I 58 49 (<or=76) ng/L Total Protein 6.3 L (6.4-8.2) g/dL Albumin 2.8 L (3.4-5.0) g/dL Procalcitonin 0.67 ng/mL Urine Color Yellow (Yellow) Urine Clarity Clear (Clear) Urine pH 6.5 (5-8) Ur Specific [place] 1.015 (1.005-1.025) Urine Protein >=300 H (Neg-Trace) mg/dL Urine Ketones Trace H (Negative) mg/dL Urine Blood Moderate H (Negative) Urine Nitrite Negative (Negative) Urine Bilirubin Negative (Negative) Urine Urobilinogen 0.2 (Up to 0.2) mg/dL Ur Leukocyte Esterase Negative (Negative) Urine RBC 3-5 H (0-2) HPF Urine WBC 10-20 H (0-5) HPF Ur Epithelial Cells Negative (Negative) HPF Urine Crystals Negative (Negative) HPF Urine Bacteria Rare (Negative) HPF Urine Casts 0-2 Hyaline (Negative) LPF Urine Mucus Trace (Negative) Ur Culture Indicated? Yes Urine Glucose >=1000 H (Negative) mg/dL 03/25/25 23:28 Wound Culture - Pending Face - Left Gram Stain - Final 03/25/25 23:34 Anaerobic Culture - Pending Head - Left 03/25/25 23:00 Urine Culture - Pending Urine - Reflex from Ua 03/25/25 23:20 Blood Culture - Pending Blood 03/25/25 23:07 Blood Culture - Pending Blood Intake and Output - 24 Hour Total 03/25/25 22:39 thru 03/26/25 00:52 Intake Total 1050 Balance 1050 Weight 83.461 kg Intake: IV 1050 Falls Risk Assessment History of Falls Admit Due to Fall 03/25/25 22:54 Contributing Factors Unstable 03/25/25 22:54 Ambulatory Aids Uses ambulatory device + 03/25/25 22:54 Tubes/Lines With any additional score 03/25/25 22:54 Gait Evaluation W/any additional score 03/25/25 22:54 Cognition No cognitive impairment 03/25/25 22:54 Fall Total Score 98 03/25/25 22:54 Level of Risk Maximum Risk 03/25/25 22:54 Problems (Last Reviewed 03/13/25 @ 13:42 by Rasheeda Melchor NP) Ambulatory dysfunction (Acute) UTI (urinary tract infection) (Acute) Type 2 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 Information / Comments: Report taken from ED JOEL Akhtar, Patient is alert and oriented x 3. Has skin cancer on left side of face, since 3-4 days ago. and developed and infection, presented with fever from EMS 103.4 and was rechecked at ER 100.3 after tylenol given.Patient unable to ambulate due to severe dizziness. Received Cefriaxone and 2L of fluids in ER. All questions answered appropriately. Report received from:
[2025-03-26 06:09] LABS: HCT 31.8 % (40.0-50.0); HGB 10.2 g/dL (13.5-17.5); MCH 28.2 pg (27.0-33.0); MCHC 32.1 % (32.0-36.0); MCV 88 fL (80-95); MPV 10.6 fL (8.0-11.0); Platelet Count 190 10^3/uL (130-400); RBC 3.62 10^6/uL (4.36-5.78); RDW 13.3 % (11.8-14.1); WBC 6.49 10^3/uL (4.4-10.8)
[2025-03-26 06:16] LABS: Anion Gap 11.5 mmol/L (3-11); BUN 41 mg/dL (7-18); CO2 21.5 mmol/L (21.0-32.0); CREATININE 2.8 mg/dL (0.70-1.30); Calcium 8.1 mg/dL (8.5-10.1); Chloride 105 mmol/L (98-107); Estimated GFR 22.39 (mL/min/1.73m2); Glucose 123 mg/dL (74-106); Magnesium 1.9 mg/dL (1.8-2.4); Potassium 4.1 mmol/L (3.5-5.1); Sodium 138 mmol/L (136-145)
[2025-03-26] MEDS: Empaglifozin 10 MG TAB PO (08:05)
[2025-03-26] MEDS: Lisinopril 20 MG TAB 40 MG PO (08:05)
[2025-03-26] MEDS: Enoxaparin 40 MG/0.4 ML SYR SC (08:05)
[2025-03-26] MEDS: Normal Saline Flush 10 ML SYR IVP ×2 (08:07→20:06)
--- NOTE | 2025-03-26 08:07 | PDOC.CMIN ---
Date of service: 03/26/25 Time of Service: 09:11 Care Management Initial Assmt Initial Assessment Reason for Hospitalization: UTI Functional Status/Living Situation Patient Presentation: Antony is very pleasant and willing to engage in conversation. He presented to the ED by EMS, early this morning after a fall, and being unable to get up; CM requested PT consult. Per report, Antony [place] skin [place] [facility] Antony is living alone, in his [place] in the summer and in his home in [place], in the winter. He is independent at baseline. Antony shared, his passed a few years ago due to cancer; Since, his sister has been his primary support. He has local family that come to his home to visit, but no in home services. Antony states, he has never needed any assistive walking devices, until recently; Now uses a cane. Antony shared that he has worked with outpatient PT in the past, and wishes to do so, again. Per Antony, he is happy and well supported within his community. CM will continue to follow. Town of Residence: [place] Resides with: Alone Significant Other/Family: Local (Sister) Natural Supports: family, neighbors, friends Employment Status: Retired (He worked for the [employer], he worked as a [employer] for [employer], now he is the [employer], and has been for 30 years. ) Instrumental Activities of Daily Living (ADLs): Independent Activities/Hobbies/SocialSupport: [place], spending time with family Medications Medication Management: No Issues/Barriers identified Physical Functioning/Mobility Assistive Device: Cane Advance Directives Advance Directives: Do you have an Advance Directive: Y 01/20/24, 08:36 AD On File at [facility]: Y 01/20/24, 08:36 Date Asked 10/10/15 01/20/24, 08:36 AD Date Reviewed 03/10/24 03/10/24, 10:57 COLST On File at [facility] COLST Date Scanned Code Status Resuscitation Status Full Code Portal Pt does not currently have a portal and education provided: Yes Insurance Coverage/Financial Issues Insurance: Medicare Part A & B - [id number] AETNA Senior Supplemental Ins - [id number] Care Team Visit Care Team Role Provider Type Aaron Cordon MD MD [facility] STAFF PHYSICIAN Rasheeda Melchor NP Primary Care Provider NURSE PRACTITIONER Lucita Luis MD Emergency Provider [facility] STAFF PHYSICIAN Chris Beltre MD Admit Provider [facility] STAFF PHYSICIAN Attending Provider Discharge Potential Discharge Needs: PCP F/U Appt Anticipated Barriers to Discharge: Medical Status Patient/Family Education Needs: Review discharge instructions, discuss Ask Me Three Transportation: Private vehicle (sister) Plan: Anticipate, Antony will return home, once medically ready. He will follow up with his community providers, possibly outpatient PT - pending PT consult, and continue per his plan of care. Antony will transport via private vehicle. Social Determinants of Health Screening Social Determinants of health last assessed in clinic: 03/26/25 Will the Patient Participate in the Screening?: Yes Do you worry about having a steady place to live?: yes What is your living situation today?: I have housing today, but am worried about losing it Problems where you live: no known problems In the past 12 months, have you had to go without electric, gas, oil or water in your home?: no 1. Within the past 12 months, we worried whether our food would run out before we got money to buy more.: Never true 2. Within the past 12 months, the food we bought just didn't last and we didn't have money to get more.: Never true Has lack of transportation kept you from medical appointments or from doing things needed for daily living?: no Has anyone in your life made you feel unsafe or unsupported?: no How hard is it for you to pay for the very basics like food, housing, medical care, and heating? Would you say it is:: Not hard at all Do you want help finding or keeping work or a job?: I do not need or want help If for any reason you need help with day-to-day activities such as bathing, preparing meals, shopping, managing finances, etc., do you get the help you need?: I don?t need any help How often do you feel lonely or isolated from those around you?: Never Do you speak a language other than Guyanese at home?: No Does the patient want assistance with any of the above?: No Health Related Social Needs Health related social needs: housing instability, housed, with risk of homelessness (Z59.811) Health related social needs details: patient declined any help from community. [facility] All Active Problems (Updated 03/26/25 @ 01:19 by Lucita Luis MD) Cranial nerve palsy (Acute) Inability to walk (Acute) Pre-syncope (Acute) Acute UTI (Acute) Ambulatory dysfunction (Acute) UTI (urinary tract infection) (Acute) Skin lesion of cheek (Acute) Spondylosis of lumbosacral spine with radiculopathy (Acute) [facility] 03/01/24 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) 07/2022 & 01/2024 Spondylolisthesis, lumbar region (Acute) 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, bilateral (Acute) CKD stage 4 due to type 2 diabetes mellitus (Acute ~09/2023) Macular edema of right eye (Acute ~08/2022) [facility] Adenomatous polyp of colon (Acute 06/21/05) colon 06/16 & 07/2008 & 05/14/15(ADENOMAS BOTH TIMES) BMI 35.0-35.9,adult (Acute 12/07/05) BMI 35; GOAL 194 LB (10% DROP) Essential hypertension (Chronic 03/26/08) Goal <130/80 Gout (Chronic 10/11/87) probenecid Rx-->10/2023 changed to Allopurinol due to CKD Hyperlipidemia (Chronic 10/11/94) goal LDL<100 (diabetes) Tobacco dependence syndrome (Chronic 12/07/05) chew Type II diabetes mellitus, uncontrolled (Chronic) 07/2002; initial BS 400, initially on insulin in hospital, then metformin at home; Mild DM retinopathy right, none left 06/17/16 Diabetic retinopathy (Chronic[facility] 08/14/22--moderate non-proliferative [facility] Medical History CKD (chronic kidney disease) stage 3, GFR 30-59 ml/min Age-related nuclear cataract of right eye (05/28/17) Cortical Age-Related Cataract of Right Eye. Age-related nuclear cataract of left eye (05/13/17) Cortical age-related cataract of left eye Cardiac murmur (~09/2022) Normal ECHO Lumbar radiculopathy [facility] 10/18/20 Lumbar Epidural 12/13/20 Caudal epidural injection DJD (degenerative joint disease), lumbosacral Foraminal stenosis of lumbosacral region Herniation of intervertebral disc between L4 and L5 Abnormal prominence of iliac crest CT; Not seen on MRI. Lipoma of back Acute Lyme disease with neurological disease RX Doxy 06/23/2019 Binocular vision disorder with diplopia Tess; referred to Ophthal 06/16/2019 Retinal hemorrhage of both eyes 06/15/19 Asad Pulido OD--Neuro Lyme Kidney stone (09/11/02) 09/2002 Surgical History S/P lumbar fusion (~04/05/24) Fusion spine posterior lumbar, PLIF L5-S1, Lumbar cages and screws excision L4-5 disc left--[facility] 04/05/24 Hx of tooth extraction Hx of colonoscopy (~07/2022) Hx of lumbar discectomy (~03/2021) L5-S1 Alpine Cataract right (08/13/17) Family History Mother , Alzheimers at age 72. Alzheimer disease Brother Diabetes Stroke Social History Smoking/Tobacco Use Status: Current every day Tobacco Type: smokeless tobacco Smokeless tobacco user: chewing tobacco Smoking risk assessment performed?: Yes Alcohol Intake: current Alcohol Intake frequency: a few times a month Alcohol type: beer Drug use: Never Substance use type: does not use Details: chewed tobacco: t-1 Household members: none and other Details: Daughter, her and self, after 46 yrs of marriage, 08/29 Housing: house Communication Needs: Corrective Lenses Do you need help understanding health information?: Never Pets and animals: Yes Pets and animals: cat(s) What is your relationship status?: Panel score (0-1 are the most socially isolated patients): 0 What type of physical activity do you participate in: other Details: lawn mowing, weed waching, fishing Frequency: 3-4 times per week Do you feel safe at home: Yes Do you feel safe in your relationship?: Yes Readmission Within the Past 30 Days Yes or No: No
[2025-03-26] MEDS: Acetaminophen 325 MG TAB PO (08:13)
--- NOTE | 2025-03-26 16:10 | PT.INIE ---
PT Notes Visit Reasons: Urinary tract infection Inpatient Physical Therapy Evaluation Date: [03/26/2025] Referring Doctor: Aaron Cordon PT Orders: PT CONSULT: [] Precautions: fall risk, standard Patient Profile/Admitting Diagnosis: []UTI, Ambulatory dysfunction,cranial nerve palsy(strabismus, diplopia) 79-year-old gentleman with a past medical history of NIDDM with CKD stage IV, hypertension, and recent Mohs surgery who presented to 03/26/2025 emergency department after a fall and concerns for infection. He is currently on observation status. He lives alone on [address]. He is indep at baseline without AD but with recent use of cane due to double vision. Has had outpatient PT in the past. He states he has double vision x ~ 1 week, stating he had this in the past with suspected Lyme disease that had resolved. He feels that he had passed out yesterday onto his knees but states that he did not have injury, he did not hit his head. 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, bilateral (Acute) CKD stage 4 due to type 2 diabetes mellitus (Acute ~09/2023) Macular edema of right eye (Acute ~08/2022) [facility] (Acute 06/21/05) colon 06/16 & 07/2008 & 05/14/15(ADENOMAS BOTH TIMES) BMI 35.0-35.9,adult (Acute 12/07/05) BMI 35; GOAL 194 LB (10% DROP) Essential hypertension (Chronic 03/26/08) Goal <130/80 Gout (Chronic 10/11/87) probenecid Rx-->10/2023 changed to Allopurinol due to CKD Hyperlipidemia (Chronic 10/11/94) goal LDL<100 (diabetes) Tobacco dependence syndrome (Chronic 12/07/05) chew Type II diabetes mellitus, uncontrolled (Chronic) 07/2002; initial BS 400, initially on insulin in hospital, then metformin at home; Mild DM retinopathy right, none left 06/17/16 Diabetic retinopathy (Chronic) [facility] 09/05/2019 08/14/22--moderate non-proliferative [facility] Social History/Home Situation: []Lives in [place], now at [facility], lives alone. He has step into shower that he also had retro fitted for his . He has single floor living with a very small step to get into the home with a rail. Current Functional Limitations: []Usually indep at baseline w/o AD, but has been using AD, of SPC recently due to double vision. He also has a RW at home that was his 's. He has step into shower that he also had retro fitted for his . Equipment Owned/DME: []SPC, RW. Subjective:I feel better since I've been here, still feel weak and unsteady with double vision but overall much improved I know last time I had double vision, I went to Dr. Person and they gave me prism glasses and I was using a patch, supposedly their office cannot see me until November of next year, I cannot function with double vision. Objective: General Observation: Pt had just gone back to bed with nurse but was willing to participate with PT. Has healing surgical incision on left side of his face from surgery for Melanoma. He has strabismus(likely due to 6th cranial nerve palsy) Mental Status: A and O x 4 Pain: pt reports no pain Vital Signs: monitored by nursing staff ROM: Right Upper Extremity: WFL Left Upper Extremity: WFL Right Lower Extremity: WFL Left Lower Extremity: WFL Strength: Right Upper Extremity: grossly tested 4/5 Left Upper Extremity: grossly tested 4/5 Right Lower Extremity: grossly tested 4/5 Left Lower Extremity: grossly tested 4/5 Sensation: denies any numbness or tingling Bed Mobility/Transfers: Supervision(states that at home sometimes he has difficulty getting out of bed especially when he doesn't feel well). He does require verbal cueing for hand placement, positioning for safety of transfers, moves quickly without being in position. Sit to stand need v/c to push off chair or off bed Stand to sit needs v/c to complete position and proper hand placement Gait: Ambulates with PT with RW close guard, V/C for pacing, positioning. Unsteady with turning with increased CTG. Wide MATT, decreased foot clearance, short stride length, pushes walker out in front instead of staying centered, improves on return 40', slow with turning and unsteady. Ambulates with SPC(cane needs to be shortened, used in position that he had), used on left side as on balance assessment he was more unsteady on the right. CTG, more unsteady, particularly unsteady with turning. At this time he should only ambulate with the RW until progress with balance and/or improved status of vision. 40' Stairs: NT, due to fatigue, weakness Balance: Static Sitting: normal Dynamic Sitting: good, does lean back while assessing LE strength but with v/c able to sit back up Static Standing: fair, wide MATT Dynamic Standing: poor, unable to march in place without holding onto the walker, unable to SLS on right, able to initiate on left Special Tests: Mobility Limitations Standardized Measure [facility] AM-PAC 6 clicks Basic Mobility Inpatient Short Form: Raw Score: 19 CMS Score: 41.77 Informed Consent/Education: Patient instructed in purpose of PT consult and plan of care. Assessment: Patient is a 79 year old male referred to physical therapy services with the diagnosis of UTI, Ambulatory dysfunction, cranial nerve palsy. Patient presents with clinical signs and symptoms consistent with altered ambulatory status, as demonstrated by the following impairment level findings: altered gait, decreased balance, decreased endurance, increased fall risk. Impairments are contributing to the following functional limitations: AMPAC score. Patient is assessed as a Low 58471 complexity based on the following: History:recent fall without injury(pt states passed out), acute double vision, lives alone, unable to drive Examination:as above Presentation: evolving Decision Making: low 16944 Gait trainin' with RW close guard and with cane CTG, provided v/c for pacing, positioning, stride length. Also review turning, and transfers to and from AD. Goals: Goals X1 week 1. Supine-Sit Indep and safe 2. Sit-Supine Indep and safe 3. Sit-Stand Indep and safe 4. Stand-Sit Indep and safe 5. Bed-Chair Indep and safe 6. Chair-Bed Indep and safe 7. Gait with least AD ,200 ft safely with good mechanics, able to perform TUG 8. Stairs indep in PT clinic 9. Independent with home exercise program 10. Balance improve to fair with dynamic, good with static, normal sitting Plan of Care/Treatment Plan: 1-2x/day, 7 days/week x 1 week. Plan of care has been reviewed with the HAND STAMPER providing the service under Physical Therapy direction. Initiate Physical Therapy intervention for strengthening, bed mobility, transfers, gait, stairs, balance training, use of assistive device. DISCHARGE RECOMMENDATIONS: Home with services PT(unable to drive due to diplopia,acute) TREATMENT CODE/TIME: 30215, 56753 20' 4:10-4:30 20'
[2025-03-26] MEDS: Atorvastatin 40 MG TAB 80 MG PO (20:03)
[2025-03-26] MEDS: cefTRIAXone 2 GM/50 ML BAG IVPB (23:32)
[2025-03-27 07:21] VITALS: BP 159/75; PULSE 66; RESP 17; TEMP 37; O2SAT 99
[2025-03-27] MEDS: Enoxaparin 40 MG/0.4 ML SYR SC (08:49)
[2025-03-27] MEDS: Lisinopril 20 MG TAB 40 MG PO (08:49)
[2025-03-27] MEDS: Empaglifozin 10 MG TAB PO (08:49)
[2025-03-27] MEDS: Normal Saline Flush 10 ML SYR IVP (09:06)
[2025-03-27 09:51] VITALS: BP 119/84; BP 146/65; BP 153/77; BP 161/73; PULSE 74; PULSE 77; PULSE 78; RESP 16; TEMP 36.6; O2SAT 96
--- NOTE | 2025-03-27 10:02 | NUR.NOTE ---
Accessed chart to reconcile orders for EKG with EKG?s in [employer]. One completed and one cancelled order. Nursing Note:
--- NOTE | 2025-03-27 10:03 | PDOC.CMPRO ---
Date of service: 03/27/25 Time of Service: 10:03 Care Management Progress Note Progress Note Text Progress Note Text: HHPT double vision preventing him from driving, if that gets resolved progression to outpatient for gait and balance general strengthening Discharge Potential Discharge Needs: PCP F/U Appt Anticipated Barriers to Discharge: Medical Status Patient/Family Education Needs: Review discharge instructions, discuss Ask Me Three Transportation: Private vehicle Plan: Anticipate, Antony will return home with new HH PT/OT, once medically ready. He will follow up with his community providers, and continue per his plan of care. Antony will transport via private vehicle. Social Determinants of Health Screening Social Determinants of health last assessed in clinic: 03/27/25 Will the Patient Participate in the Screening?: Yes Do you worry about having a steady place to live?: no Problems where you live: no known problems In the past 12 months, have you had to go without electric, gas, oil or water in your home?: no 1. Within the past 12 months, we worried whether our food would run out before we got money to buy more.: Never true 2. Within the past 12 months, the food we bought just didn't last and we didn't have money to get more.: Never true Has lack of transportation kept you from medical appointments or from doing things needed for daily living?: no Has anyone in your life made you feel unsafe or unsupported?: no How hard is it for you to pay for the very basics like food, housing, medical care, and heating? Would you say it is:: Not hard at all Do you want help finding or keeping work or a job?: I do not need or want help If for any reason you need help with day-to-day activities such as bathing, preparing meals, shopping, managing finances, etc., do you get the help you need?: I don?t need any help How often do you feel lonely or isolated from those around you?: Never Do you speak a language other than Frisian at home?: No Does the patient want assistance with any of the above?: No Health Related Social Needs Health related social needs details: patient declined any help from community.
--- NOTE | 2025-03-27 10:41 | PT.INTREAT ---
PT Notes Visit Reasons: Urinary tract infection Inpatient Physical Therapy Treatment Note [facility] Date: 03/27/2025 PRECAUTIONS:[Standard] diplopia wears eye patch while waiting for ophthalmology appointment SUBJECTIVE: Patient reports as long as he has a patch on double vision and dizziness are absent OBJECTIVE: Supine in bed nurse applying patch to left eye. ? PAIN: Denied VITALS: ?Orthostatic BPs as follow: Supine 161/73 heart rate 74 Sit 153/77 heart rate 74 Stand 119/84 heart rate 83 After ambulation 156/83 heart rate 80 Therapeutic Activities (09245v[]): Direct one-on-one instruction in dynamic activities to improve functional performance. ? BED MOBILITY/TRANSFERS? Rolling L/R: Independent Supine-sit: Independent? Sit-supine: Independent ? Sit-stand: SBA? Stand-sit: SBA ? Bed-Chair: SBA with FWW ? Chair-bed: SBA with FWW Provided skilled cues and instruction on performance and technique throughout. Ambulation: Facilitated safe and correct performance of level surface ambulation covering a distance of 300 feet using use front wheeled walker with standby assist. Did not report of any increased pain. Denied headache, chest pain, and lightheadedness throughout activity. Minimal verbal cueing provided for AD management during directional changes, and posture. STAIRS: 3 4 steps? and 2 6 steps with rails SBA with continuous cues for sequencing step to pattern ? ASSESSMENT:?Patient tolerated session well with use of patch over left eye. No loss of balance noted no instability with use of FWW which patient reports he has at home. Patient would benefit from further outpatient assessment of vision and outpatient PT when able to drive to progress with ambulation with least restrictive device and return to prior level of function. PLAN: Continue with plan of care until medically appropriate for discharge TREATMENT CODE/TIME: 33308 x 11/9049?1025 DISCHARGE RECOMMENDATION: HH PT and use of FWW then outpatient PT when able to drive
--- NOTE | 2025-03-27 11:02 | PDOC.CMDIS ---
Date of service: 03/27/25 Time of Service: 11:03 LACE Index Scoring Tool Questions: Length of Stay (in days): 1 Was the patient admitted via the E.D.?: Yes Comorbidities: Diabetes w/o Complication and Liver or Renal Disease E.D. Visits: 1 Answers: Total Score: 10 Risk of Readmission: High Risk Care Management Discharge Plan Reason for Hospitalization: UTI Discharge Plan: Antony will return home with new PT/OT, RN, STRAP MACHINE OPERATOR, once medically ready. He will follow up with his community providers, and continue per his plan of care. Antony will transport via private vehicle by his sister. Patient/Family Education Needs: Review of discharge instructions, activity, limitations, and plan of care. Discuss Ask Me Three. Services Needed at Discharge: Home Health Care Services (PT/OT/RN/STRAP MACHINE OPERATOR) SDOH Health Related Social Needs: Health related social needs risk of homeless Health related social needs details patient declined any help from community. Health related social needs details: patient declined any help from community.
--- NOTE | 2025-03-27 11:03 | PDOC.HHF2F_ITS ---
Home Health Referral Home Health Orders Clinical synopsis of why skilled professionals are needed: juan Medical diagnosis necessitation home health referral: diploplia Registered Nurse: Check all that apply Assess for exacerbation of medical condition, instruct patient/caregivers on signs and symptoms to report for early detection: Ordered Physical Therapist: Check all that apply Increase strength & endurance for safe mobility at home: Ordered To design/establish home maintenance program: Ordered Fall reduction therapy program for patient with history of frequent falls: Ordered Home safety evaluation and teaching/gait training including stair management (if applicable): Ordered Occupational Therapist: Evaluate and treat for patient unable to perform ADL/IADL/self-care: Ordered Upper extremity strengthening, range and motion: Ordered Lieutenant Governor: Assist with community resources: Ordered Assist with terminal makeup operator care planning: Ordered Home Bound Status Patient has a condition such that leaving home is medically contraindicated (Describe): juan Describe why leaving home would require a considerable and taxing effort: Other (vision issues) Encounter Date and Reason: I certify that a FTF encounter for this patient was performed on March 27, 2025 and that such encounter was related to the primary reason the patient requires home health services. The encounter was conducted in the following manner: * By me as the certifying physician, GEOTECHNICAL DEPARTMENT MANAGER, PA or * By an inpatient physician, GEOTECHNICAL DEPARTMENT MANAGER or PA during an inpatient stay who communicated findings to me, Certification And Authentication I certify that I composed the above information based on my clinical judgment relating to this patient's medical condition and, if applicable, clinical findings communicated to me by the NPP or inpatient physician who performed the FTF encounter. Name of Provider that will be monitoring home health services: Rasheeda Melchor
--- NOTE | 2025-03-27 11:13 | W.PM.DS.N ---
Date of service: 03/27/25 Time of Service: 11:13 DS: Diagnosis Discharge Diagnosis (1) Ambulatory dysfunction: Status: Acute (2) UTI (urinary tract infection): Status: Acute (3) Type 2 diabetes mellitus with moderate nonproliferative diabetic retinopathy with macular edema, bilateral: Status: Acute (4) Essential hypertension: Status: Chronic (5) Hyperlipidemia: Status: Chronic Discharge Plan Disposition Patient Disposition: Home W/Home Health Services Condition: Stable Discharge Details Reason For Visit: UTI Admit Date/Time: 03/26/25 01:01 Admit Provider: Chris Beltre Attending Provider: Chris Beltre Primary Care Provider: Rasheeda Melchor Hospital Course Hospital Course: This is a 79-year-old gentleman who was admitted to the hospital on 03/26/2025 for weakness as well as concern about a UTI. While in the ED he was admitted for ambulatory dysfunction diplopia possible UTI as well as diabetes. Urine guards to his laboratory work was here he did have mild anemia. We need to be evaluated in the outpatient setting with a hemoglobin of 10.2 hematocrit 31.8 respectively. His electrolytes were essentially benign with exception of an elevation in his BUN and creatinine. Patient noted to have chronic kidney disease. Urinalysis showed proteinuria as well as hematuria. Recommend outpatient evaluation for 6 weeks to ensure resolution of hematuria. Patient also with significant glucosuria and will need to have optimization of his diabetic regimen in the outpatient setting check panel is pending. Blood cultures are negative at 24 hours. Urinalysis did show 2 E. coli but it does appear to be in a contamination. As the CFU markers are under 100,000. Patient improved in regards to his symptomology and on the has to be discharged home. Patient states that he does have some episodes of diplopia when he does see his eye doctor as soon as possible. At this point we agreed to discharge he will be discharged home with home health care as outlined in his [id number]. At this point I do not believe the patient is in need of antibiotics or continue the same medications. Home Meds and New Rx's Prescriptions: No Action allopurinol 100 mg tablet 50 mg PO .TWICE PER WEEK MDD 100mg/24h Qty: 30 3RF Rx Instructions: STOP PROBENACID and start Allopurinol for gout prevention (10/14/2023) multivitamin Tablet 1 tab PO DAILY (DME) FreeStyle [place] 2 [place] Misc See Rx Instructions .Route Qty: 1 0RF Rx Instructions: As directed; to keep HbA1c less than 7.5%; Dx: E11.65 (DME) FreeStyle [place] 2 Sensor Kit See Rx Instructions .Route Qty: 6 3RF Rx Instructions: TO MONITOR BLOOD GLUCOSE DAILY FOR GOAL A1C LESS THEN 7.5,CHANGE SENSOR EVERY 14 DAYS clopidogrel 75 mg tablet See Rx Instructions .ROUTE .COMPLEX Qty: 90 3RF Dose Instruction: Take 1 tablet by mouth once daily Rx Instructions: Take 1 tablet by mouth once daily amlodipine 5 mg tablet 5 mg PO DAILY Qty: 90 0RF Rx Instructions: Blood pressure (new 10/14/2023; STOP HCTZ) Jardiance 10 mg tablet 10 mg PO QAM Qty: 90 3RF mupirocin 2 % ointment 1 applic topical BID-TID Qty: 15 0RF Rx Instructions: May substitute with cream if less expensive; apply thin layer until area/lesion resolved glipizide 5 mg tablet 5 mg PO DAILY Qty: 90 0RF Rx Instructions: Dose increase 01/04/24 lisinopril 40 mg tablet See Rx Instructions .ROUTE .COMPLEX Qty: 90 3RF Dose Instruction: TAKE 1 TABLET BY MOUTH ONCE DAILY TO LOWER BLOOD PRESSURE UNDER 130/80 Rx Instructions: TAKE 1 TABLET BY MOUTH ONCE DAILY TO LOWER BLOOD PRESSURE UNDER 130/80 atorvastatin 80 mg tablet See Rx Instructions .ROUTE .COMPLEX Qty: 90 3RF Dose Instruction: TAKE 1 TABLET BY MOUTH AT BEDTIME Rx Instructions: TAKE 1 TABLET BY MOUTH AT BEDTIME glipizide 5 mg tablet 5 mg PO DAILY Patient Comments: TAKE 1 TABLET BY MOUTH ONCE DAILY Discharge Instructions Referrals: Rasheeda Melchor NP [Primary Care Provider, Medicine] Referral Note: f/u in 5-7 days Activity:: Activity as Tolerated Equipment/Supplies:: No Equipment Needed Diet:: As Tolerated Discharge Orders Discharge Orders: Discharge Order (Routine); Ordered 03/27/25 Ordered By: Aaron Cordon DS: Summary Time Spent with Patient providing and/or coordinating discharge services: Greater than 30 minutes Status at Discharge Functional status at discharge: independent ambulation Overall status at discharge: patient is progressing back to baseline Mental Status: mental status grossly normal Speech and Movement: speech and movement normal Mood: congruent mood Affect: normal affect Quality:SDOH Health Related Social Needs: Health related social needs risk of homeless Health related social needs details patient declined any help from community. Health related social needs details: patient declined any help from community. Exam Narrative Exam Narrative: Well-appearing older gentleman laying in bed in no acute distress, ANO x 4, heart regular rhythm, lungs, auscultation bilaterally, abdomen soft, nontender, nondistended Psych Mental Status: mental status grossly normal Speech and Movement: speech and movement normal Mood: congruent mood Affect: normal affect DS: Data Vitals/I&O Vitals and I&O: Vital Signs Temperature 36.6 C 03/27/25 09:51 Temperature Source Temporal Artery Scan 03/27/25 09:51 Pulse 77 03/27/25 09:51 Pulse Rhythm Regular 03/26/25 01:52 Pulse 85 03/25/25 23:12 Respiratory Rate 16 03/27/25 09:51 Respiratory Effort Normal, Non-Labored 03/26/25 01:52 Respiratory Depth Normal 03/26/25 01:52 Respiratory Pattern Normal 03/26/25 01:52 Blood Pressure 161/73 H 03/27/25 09:51 Blood Pressure Mean 92 03/27/25 09:51 Blood Pressure Position Supine 03/25/25 22:54 Pulse Oximetry 96 03/27/25 09:51 Oxygen Delivery Method Room Air 03/27/25 09:51 Oxygen Flow Rate 0 03/27/25 09:51 Pain Level 0 03/27/25 09:51 Intake & Output 03/26/25 03/26/25 03/27/25 11:59 23:59 11:59 Intake Total 0 / 2410 60 / 60 Output Total 575 / 575 850 / 850 Balance 1835 / 1835 -790 / -790 Weight 80.377 kg Intake: IV 2049 / 2049 60 / 60 Oral 360 / 360 Output: Urine 575 / 575 850 / 850 Other: Urine Color Yellow Yellow Urine Appearance Clear Clear Urine Odor None Normal Comment Pt voids ind. in urinal while in bed. Data Completed and Pending Labs on day of discharge: Preliminary micro results at discharge 03/25/25 23:00 Urine - Reflex from Ua Urine Culture - Preliminary Escherichia coli Gram positive buster, mixed Gram negative kulwant 03/25/25 23:28 Face - Left Wound Culture - Preliminary Gram positive buster, mixed 03/25/25 23:34 Head - Left Anaerobic Culture - Preliminary 03/25/25 23:20 Blood Blood Culture - Preliminary NO GROWTH 24 HOURS 03/25/25 23:07 Blood Blood Culture - Preliminary NO GROWTH 24 HOURS PFSH All Active Problems (Updated 03/27/25 @ 11:12 by Aaron Cordon MD) Cranial nerve palsy (Acute) Inability to walk (Acute) Pre-syncope (Acute) Acute UTI (Acute) Ambulatory dysfunction (Acute) UTI (urinary tract infection) (Acute) Skin lesion of cheek (Acute) Spondylosis of lumbosacral spine with radiculopathy (Acute) [facility] 03/01/24 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) 07/2022 & 01/2024 Spondylolisthesis, lumbar region (Acute) [facility] 12/15/23 Monocular esotropia, left eye (Acute) Presence of intraocular lens (Acute) Type 2 diabetes mellitus with moderate nonproliferative diabetic retinopathy with macular edema, bilateral (Acute) CKD stage 4 due to type 2 diabetes mellitus (Acute ~09/2023) Macular edema of right eye (Acute ~08/2022) [facility] Adenomatous polyp of colon (Acute 06/21/05) colon 06/16 & 07/2008 & 05/14/15(ADENOMAS BOTH TIMES) BMI 35.0-35.9,adult (Acute 12/07/05) BMI 35; GOAL 194 LB (10% DROP) Essential hypertension (Chronic 03/26/08) Goal <130/80 Gout (Chronic 10/11/87) probenecid Rx-->10/2023 changed to Allopurinol due to CKD Hyperlipidemia (Chronic 10/11/94) goal LDL<100 (diabetes) Tobacco dependence syndrome (Chronic 12/07/05) chew Type II diabetes mellitus, uncontrolled (Chronic) 07/2002; initial BS 400, initially on insulin in hospital, then metformin at home; Mild DM retinopathy right, none left 06/17/16 Diabetic retinopathy (Chronic) [facility] 09/05/2019 08/14/22--moderate non-proliferative [facility] Medical History CKD (chronic kidney disease) stage 3, GFR 30-59 ml/min Age-related nuclear cataract of right eye (05/28/17) Cortical Age-Related Cataract of Right Eye. Age-related nuclear cataract of left eye (05/13/17) Cortical age-related cataract of left eye Cardiac murmur (~09/2022) Normal ECHO Lumbar radiculopathy [facility] 10/18/20 Lumbar Epidural 12/13/20 Caudal epidural injection DJD (degenerative joint disease), lumbosacral Foraminal stenosis of lumbosacral region Herniation of intervertebral disc between L4 and L5 Abnormal prominence of iliac crest CT; Not seen on MRI. Lipoma of back Acute Lyme disease with neurological disease RX Doxy 06/23/2019 Binocular vision disorder with diplopia Tess; referred to Ophthal 06/16/2019 Retinal hemorrhage of both eyes 06/15/19 Asad Pulido OD--Neuro Lyme Kidney stone (09/11/02) 09/2002 Surgical History S/P lumbar fusion (~04/05/24) Fusion spine posterior lumbar, PLIF L5-S1, Lumbar cages and screws excision L4-5 disc left--[facility] 04/05/24 Hx of tooth extraction Hx of colonoscopy (~07/2022) Hx of lumbar discectomy (~03/2021) L5-S1 [place] Cataract right (08/13/17) Family History Mother , Alzheimers at age 72. Alzheimer disease Brother Diabetes Stroke Social History Smoking/Tobacco Use Status: Current every day Tobacco Type: smokeless tobacco Smokeless tobacco user: chewing tobacco Smoking risk assessment performed?: Yes Alcohol Intake: current Alcohol Intake frequency: a few times a month Alcohol type: beer Drug use: Never Substance use type: does not use Details: chewed tobacco: t-1 Household members: none and other Details: Daughter, her and self, after 46 yrs of marriage, 08/29 Housing: house Communication Needs: Corrective Lenses Do you need help understanding health information?: Never Pets and animals: Yes Pets and animals: cat(s) What is your relationship status?: Panel score (0-1 are the most socially isolated patients): 0 What type of physical activity do you participate in: other Details: lawn mowing, weed waching, fishing Frequency: 3-4 times per week Do you feel safe at home: Yes Do you feel safe in your relationship?: Yes Time Spent with Patient Time Spent with Patient: 45-69 minutes Time was spent: preparing to see the patient(eg.review tests), obtaining and/or reviewing separately otained hiistory, ordering medications,tests, procedures, referring, communicating with other health infant childcare provider, indepentently interpreting results, counseling the patient and care coordination
== END 2025-03-27 13:04 | disposition home health service (06) ==
LOC: ER 03-26 01:19 → MS 03-26 08:00
PROVIDERS: Admitting Provider Family Medicine; Emergency Provider Student in an Organized Health Care Education/Training Program; PCP Nurse Practitioner Adult Health; Responsible Provider Hospitalist; Visit Provider Family Medicine
DX: R26.2 Difficulty in walking, not elsewhere classified (principal); N39.0 Urinary tract infection, site not specified; E11.3313 Type 2 diabetes mellitus with moderate nonproliferative diabetic retinopathy with macular edema, bilateral; E78.5 Hyperlipidemia, unspecified; I12.9 Hypertensive chronic kidney disease with stage 1 through stage 4 chronic kidney disease, or unspecified chronic kidney disease; E11.22 Type 2 diabetes mellitus with diabetic chronic kidney disease; N18.4 Chronic kidney disease, stage 4 (severe); W19.XXXA Unspecified fall, initial encounter; R42 Dizziness and giddiness; F17.220 Nicotine dependence, chewing tobacco, uncomplicated; M10.9 Gout, unspecified; H49.22 Sixth [abducent] nerve palsy, left eye; M47.26 Other spondylosis with radiculopathy, lumbar region; M48.061 Spinal stenosis, lumbar region without neurogenic claudication; Z98.1 Arthrodesis status; H53.2 Diplopia; D64.9 Anemia, unspecified; R31.9 Hematuria, unspecified; R80.9 Proteinuria, unspecified
CPT/HCPCS: 00123; 36415; 80048; 80053; 82805; 84145; 85027; 87040; 87077; 93005; 96361; 96365; 96372; 97116; 97161; 97530; 99285; J1650; 81003; 81015; 83605; 83735; 84484; 85025; 85610; 85730; 87070; 87075; 87086; 87186; 87205; 93010; 99223; 99239; G0378; J0696

== ENCOUNTER 2025-04-13 12:27 | Outpatient (REF) | payer MEDICARE, SELFPAY ==
[2025-04-13 15:17] LABS: Abs Immature Grans 0.02 10^3/uL (0.0-0.06); HCT 37.5 % (40.0-50.0); HGB 12.0 g/dL (13.5-17.5); Immature Grans % 0.4 %; MCH 27.8 pg (27.0-33.0); MCHC 32.0 % (32.0-36.0); MCV 87 fL (80-95); MPV 10.5 fL (8.0-11.0); Platelet Count 220 10^3/uL (130-400); RBC 4.32 10^6/uL (4.36-5.78); RDW 13.2 % (11.8-14.1); RDW-SD 42.4 fL; WBC 4.56 10^3/uL (4.4-10.8)
[2025-04-13 15:59] LABS: Anion Gap 10.6 mmol/L (3-11); BUN 50 mg/dL (7-18); CO2 24.4 mmol/L (21.0-32.0); Calcium 8.7 mg/dL (8.5-10.1); Chloride 106 mmol/L (98-107); Estimated GFR 28.35 (mL/min/1.73m2); Glucose 125 mg/dL (74-106); Potassium 4.8 mmol/L (3.5-5.1); Sodium 141 mmol/L (136-145)
== END 2025-04-13 12:28 | disposition home or self-care (01) ==
LOC: LBN 12:27
PROVIDERS: PCP Nurse Practitioner Adult Health; Visit Provider Nurse Practitioner Adult Health
DX: N18.9 Chronic kidney disease, unspecified (principal); D63.1 Anemia in chronic kidney disease; E11.65 Type 2 diabetes mellitus with hyperglycemia; E11.22 Type 2 diabetes mellitus with diabetic chronic kidney disease; N18.4 Chronic kidney disease, stage 4 (severe); N39.0 Urinary tract infection, site not specified
CPT/HCPCS: 80048; 85025

== ENCOUNTER 2025-09-27 00:50 | Outpatient (CLI) | payer MEDICARE, SELFPAY ==
[2025-09-27 08:52] LABS: Hemoglobin A1C 7.2 % (<5.7)
[2025-09-27 09:57] LABS: Anion Gap 9.9 mmol/L (3-11); BUN 47 mg/dL (9-23); CO2 24.1 mmol/L (20.0-31.0); Calcium 9.0 mg/dL (8.3-10.6); Chloride 107 mmol/L (98-107); Cholesterol 173 mg/dL (<200); Glucose 138 mg/dL (74-106); HDL Cholesterol 43 mg/dL (>or=40); Potassium 4.7 mmol/L (3.5-5.1); Sodium 141 mmol/L (136-145); Uric Acid 5.5 mg/dL (3.7-9.2)
[2025-09-27 10:26] LABS: Microalb ug/mg Crea 1227.6 ug/mg Cr
== END 2025-09-27 00:51 | disposition home or self-care (01) ==
LOC: LBO 00:50
PROVIDERS: PCP Nurse Practitioner Adult Health; Referring Provider Nurse Practitioner Adult Health; Visit Provider Nurse Practitioner Adult Health
DX: E11.3313 Type 2 diabetes mellitus with moderate nonproliferative diabetic retinopathy with macular edema, bilateral (principal); E11.22 Type 2 diabetes mellitus with diabetic chronic kidney disease; N18.4 Chronic kidney disease, stage 4 (severe); M10.9 Gout, unspecified
CPT/HCPCS: 36415; 80048; 80061; 82043; 82570; 83036; 84550